=== PATIENT | male | born 1975 | race Caucasian/White ===

== ENCOUNTER 2016-11-23 12:52 | Emergency (ER) | payer MEDICAID ==
--- NOTE | 2016-11-23 13:51 | EDM.PDOC ---
ED HISTORY OF PRESENT ILLNESS - General Chief Complaint: Cardiovascular Problem Stated Complaint: ADMIT FROM CLINIC Time Seen by Provider: 11/23/16 13:32 Source: Reports: Patient, Provider, RN notes reviewed History Limitations: Reports: No limitations - History of Present Illness INITIAL COMMENTS - FREE TEXT/NARRATIVE: A 41-year-old gentleman sent over from the clinic for further evaluation he has a known history of noncompliance diabetes mellitus type 2 as well as history of osteomyelitis status post forefoot removal. He was to establish in clinic today with a new provider he has been complaining of shortness of breath over the last week has had some weight gain as well EKG done in the clinic shows a new left bundle branch block with 3ed degree heart block prior EKGs from August 10 show right bundle branch block. Review of clinic notes show the following 2. Type 2 diabetes mellitus with diabetic polyneuropathy, unspecified prison insulin use status (HCC) 1. Diabetic ulcer of toe (HCC) Patient HbA1c today is10.4. Patient is noncompliant with the medication. Plan is to continue Trulocity and NovoLog 15 units with meals. Recommended him to take the Lantus 10 units during the nighttime. Strongly recommended him to bring home blood sugars chart for the next visit. Patient has been following with ophthalmology for diabetic retinopathy complications. Following with surgery for diabetic foot ulcer. No further complications are noted. Creatinine is within normal limits. We will check microalbumin and vitamin D levels. We'll follow the results and change the management accordingly. RTC in 2 weeks with home blood sugar readings. Patient voices understanding and agreed with the plan. - A1C(Hgb A1C) Today; Future - Urine Microscopic Examination; Future - Vitamin D Total; Future - Microalb,Random - Thyroid Screen with Reflex - Vitamin D Total 3. Anticoagulated on Coumadin 5. Bradycardia 6. S/P AVR Patient underwent a mechanical aortic valve replacement with a 21 mm Vladimir valve in July 2013 in the setting of critical aortic valve stenosis with a bicuspid aortic valve. Patient was recently evaluated by cardiology and recommendations are "Continue Coumadin dose to goal INR between 2 and 3 along with aspirin 81 mg daily Decrease Coreg to 3.125 mg twice a day Continue lisinopril 10 mg daily Continue Lasix 20 mg daily Increase atorvastatin to 80 mg daily sodium restriction to less than 2g daily encouraged with avoidance of canned/pre-processed/convenience foods, deli meats , cheeses Encouraged hydration with 64 oz of water daily. Once he has healed from his toe amputation, it would be reasonable for him to increase his physical activity and consider referral to cardiac rehabilitation Repeat echocardiogram in July 2017 for mechanical wall function follow-up ". Patient states that he is taking Coreg 6.25 mg once daily instead of 3.125 mg twice daily. Recommended him to take 3.125 twice daily to avoid any bradycardia. Patient agreed. 4. Anemia, unspecified type Unknown etiology. We will get iron panel along with ferritin. - Hemogram w/Diff Today; Future - Iron Panel; Future - Ferritin; Future - Hemogram w/Diff Today - Iron Panel - Ferritin 7. Forgetfulness Will refer to neuropsychiatry evaluation for proper diagnosis. Patient agreed with the plan. - Related Data Allergies/ADRs: Allergies Allergy/AdvReac Type Severity Reaction Status Date / Time No Known Allergies Allergy Verified 11/23/16 13:18 Home Meds: Home Meds Carvedilol 6.25 mg PO DAILY 12/08/13 [History] Insulin Aspart [NovoLOG] 15 units SUBCUT TID PRN 12/08/13 [History] Insulin Glarg,Human.Rec.Analog [Lantus Solostar] 30 units SUBCUT QPM 12/08/13 [ History] Warfarin [Coumadin] 5 mg PO DAILY 12/08/13 [History] Hydrocodone/Acetaminophen [Hydrocodon-Acetaminophen 5-325] 1 each PO Q4HR PRN [History] Furosemide [Lasix] 20 mg PO DAILY PRN 08/25/16 [History] Lisinopril 10 mg PO DAILY 08/25/16 [History] atorvaSTATin [Lipitor] 40 mg PO BEDTIME 08/25/16 [History] traMADol [Ultram] 50 mg PO BID PRN 11/23/16 [History] Past Medical History HEENT History: Reports: Epistaxis, Hard of hearing Cardiovascular History: Reports: Heart murmur, High cholesterol, Hypertension Gastrointestinal History: Reports: Other (see below) Other Gastrointestinal History: acid reflux Musculoskeletal History: Reports: Other (see below) Other Musculoskeletal History: knee pain Psychiatric History: Reports: ADD Endocrine/Metabolic History: Reports: Diabetes, type II, IDDM, Obesity/BMI 30+ Dermatologic History: Reports: Other (see below) Other Dermatologic History: right foot ulcer - Infectious Disease History Infectious Disease History: Reports: C-difficile - Past Surgical History HEENT Surgical History: Reports: Cataract surgery Cardiovascular Surgical History: Reports: Valve replacement Other Cardiovascular Surgeries/Procedures: open heart surgery. 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 Social & Family History - Tobacco Use Smoking Status *Q: Former Smoker Years of Tobacco use: 20 Packs/Tins Daily: 0.2 Used Tobacco, but Quit: No Second Hand Smoke Exposure: Yes - Caffeine Use Caffeine Use: Reports: Coffee, Soda - Alcohol Use Days Per Week of Alcohol Use: 0 - Recreational Drug Use Recreational Drug Use: Yes Drug Use in Last 12 Months: Yes Recreational Drug Type: Reports: Marijuana/Hashish Other Recreational Drug Type: Used Marijuana 2 weeks ago Recreational Drug Use Frequency: Rarely - Living Situation & Occupation Living situation: Reports: Occupation: employed ([employer]) ED ROS GENERAL - Review of Systems Review Of Systems: See Below Constitutional: Reports: chills HEENT: Reports: No symptoms Respiratory: Reports: Shortness of Breath Cardiovascular: Reports: Dyspnea on exertion GI/Abdominal: Reports: No symptoms : Reports: no symptoms Musculoskeletal: Reports: no symptoms Skin: Reports: no symptoms Neurological: Reports: No Symptoms ED EXAM, GENERAL - Physical Exam Exam: See Below Free Text/Narrative:: General: Male, not in any distress, alert and oriented x3 HEENT: head is atraumatic normocephalic, eyes pupils equal round reactive to light, sclera clear no conjunctivitis appreciated. Ears tympanic membranes clear and whitehead landmarks and light reflex are present bilaterally canals are clear. Nose no septal deviation, nares are clear, no blood present. Mouth mucosa is moist and pink no erythema or exudate noted in soft palate, tongue is midline uvula is midline, dentition is intact. Neck: Supple no thyromegaly no tracheal deviation. Nodes: Cervical nodes subclavicular nodes nontender no palpable lymphadenopathy noted. Lungs: clear to auscultation bilaterally with symmetrical respirations, no adventitious noise appreciated. CV: Bradycardic rate and rhythm S1 and S2 mechanical click appreciated. Abdomen: Soft, obese, nontender, no palpable masses or organomegaly appreciated , no distention no guarding bowel sounds are present, . Neuro: Cranial nerves II through XII grossly intact Skin: Warm and dry, intact Course - Vital Signs Last Recorded V/S: Last Vital Signs Temp 98.0 F 11/23/16 13:17 Pulse 48 L 11/23/16 13:17 Resp 14 11/23/16 13:17 BP 189/90 H 11/23/16 13:17 Pulse Ox 100 11/23/16 13:17 - Orders/Labs/Meds Orders: Active Orders 24 hr Category Date Time Status Cardiac Monitoring [RC] .As Directed Care 11/23/16 13:41 Active Peripheral IV Care [RC] . DIRECTED Care 11/23/16 14:19 Active Sodium Chloride 0.9% [Saline Flush] Med 11/23/16 14:19 Active 10 ml FLUSH ASDIRECTED PRN Peripheral IV Insertion Adult [OM.PC] Urgent Oth 11/23/16 14:19 Ordered Medication Orders Sodium Chloride (Saline Flush) 10 ml FLUSH ASDIRECTED PRN PRN Reason: Keep Vein Open Labs: Laboratory Tests 11/23/16 11/23/16 11/23/16 Range/Units 13:53 13:53 13:53 PT 17.4 H (9.5-12.0) sec INR 1.62 H (0.80-1.20) Lactic Acid 1.5 (0.4-2.0) mmol/L Troponin I 0.044 (0.000-0.056) ng/mL [id number] Pept 5006 H (5-125) pg/mL Meds: Medications Generic Name Dose Route Start Last Admin Trade Name Freq PRN Reason Stop Dose Admin Sodium Chloride 10 ml 11/23/16 14:19 Saline Flush FLUSH ASDIRECTED PRN Keep Vein Open Departure - Departure Time of Disposition: 15:00 Disposition: DC/Tfer to Acute Hospital 02 Reason for Transfer *Q: Other Condition: fair Clinical Impression: Third degree heart block Forms: ED Department Discharge - My Orders Last 24 Hours: My Active Orders 11/23/16 13:41 Cardiac Monitoring [RC] .As Directed 11/23/16 14:19 Peripheral IV Care [RC] . DIRECTED Sodium Chloride 0.9% [Saline Flush] 10 ml FLUSH ASDIRECTED PRN Peripheral IV Insertion Adult [OM.PC] Urgent - Assessment/Plan Last 24 Hours: My Active Orders 11/23/16 13:41 Cardiac Monitoring [RC] .As Directed 11/23/16 14:19 Peripheral IV Care [RC] . DIRECTED Sodium Chloride 0.9% [Saline Flush] 10 ml FLUSH ASDIRECTED PRN Peripheral IV Insertion Adult [OM.PC] Urgent Plan: Assessment Acuity = acute Site and laterality = third-degree heart block with congestive heart failure and mild pulmonary congestion complicating a patient with known history of diabetes mellitus type 2, aortic valve replacement on chronic anticoagulation as well as history of osteomyelitis right foot Etiology = suspicious for heart failure involvement producing the third-degree block Manifestations = dyspnea on exertion Location of injury = home Lab values = lacticacidemia normal a 1.5 troponin within normal limits at 0.044 BNP 5006 consistent with fluid overload type pattern Plan Called and discussed the case with Dr. Harrington hospitalist construction consultant the [facility], kindly accepted the patient in transfer, will be transported via EMS services ground transcutaneous pacing pads are in place Patient was in agreement with the plan all questions were answered, This note was dictated using [employer] voice recognition software please call with any questions.
[2016-11-23] MEDS ORDERED: Sodium Chloride 0.9% 10 ML Syringe FLUSH PRN (14:19)
[2016-11-23 15:23] VITALS: BP 181/72
== END 2016-11-23 16:04 ==
LOC: JP.ED 12:52
DX: I44.2 Atrioventricular block, complete (principal); I10 Essential (primary) hypertension; E78.00 Pure hypercholesterolemia, unspecified; E11.9 Type 2 diabetes mellitus without complications; E66.9 Obesity, unspecified; Z68.41 Body mass index [BMI] 40.0-44.9, adult; Z79.4 Long term (current) use of insulin; Z79.01 Long term (current) use of anticoagulants; Z98.49 Cataract extraction status, unspecified eye; Z95.2 Presence of prosthetic heart valve; Z98.890 Other specified postprocedural states; Z87.891 Personal history of nicotine dependence
CPT/HCPCS: 36415; 83605; 83880; 84484; 85610; 99285; J7050

== ENCOUNTER 2017-03-20 19:17 | Emergency (ER) | payer MEDICAID ==
[2017-03-20] MEDS ORDERED: Lactated Ringers 1,000 ML IV SCH (19:45)
[2017-03-20] MEDS ORDERED: Piperacillin/Tazobactam 4.5 GM in Sodium Chloride 0.9% 100 ML IV SCH (19:45)
--- NOTE | 2017-03-20 19:47 | EDM.PDOC ---
ED HPI GENERAL MEDICAL PROBLEM - General Chief Complaint: Respiratory Problem Stated Complaint: FEVER,VOMITING Time Seen by Provider: 03/20/17 19:32 Source of Information: Reports: Patient, Family, Old Records, RN Notes Reviewed History Limitations: Reports: No Limitations - History of Present Illness INITIAL COMMENTS - FREE TEXT/NARRATIVE: 41-year-old gentleman presents emergency department day complaint of shortness of breath and not feeling well he is unsure of when this started has progressively gotten worse over the last 24 hours is unaware of any fevers at home states he has been taking his medication when he can remember. Does have a known history of third-degree heart block of which she recently received pacemaker placement earlier this spring he does have a known history of diabetes mellitus type 2 with chronic wounds and history of osteomyelitis as well has had difficulty with wound healing over his pacemaker insertion site, also has a mechanical valve is currently anticoagulated on Coumadin - Related Data Allergies Allergy/AdvReac Type Severity Reaction Status Date / Time metformin Allergy Indigestion Verified 03/20/17 19:29 Home Meds: Home Meds Insulin Glarg,Human.Rec.Analog [Lantus Solostar] 55 units SUBCUT QPM 12/08/13 [ History] Warfarin [Coumadin] 5 mg PO DAILY 12/08/13 [History] Furosemide [Lasix] 40 mg PO BID PRN 08/25/16 [History] Lisinopril 10 mg PO DAILY 08/25/16 [History] atorvaSTATin [Lipitor] 40 mg PO BEDTIME 08/25/16 [History] Aspirin [Adult Low Dose Aspirin EC] 81 mg PO DAILY 03/20/17 [History] Ferrous Sulfate [Iron] 325 mg PO TID 03/20/17 [History] Isosorbide Mononitrate [Isosorbide Mononitrate ER] 60 mg PO DAILY 03/20/17 [ History] Liraglutide [Victoza] 1.8 units SQ DAILY 03/20/17 [History] amLODIPine [Norvasc] 10 mg PO DAILY 03/20/17 [History] hydrALAZINE [Apresoline] 50 mg PO TID 03/20/17 [History] Past Medical History HEENT History: Reports: Epistaxis, Hard of Hearing Cardiovascular History: Reports: Heart Murmur, High Cholesterol, Hypertension Respiratory History: Reports: SOB Gastrointestinal History: Reports: Chronic Constipation Other Gastrointestinal History: acid reflux Musculoskeletal History: Reports: Other (See Below) Other Musculoskeletal History: amputations 5 toes R foot 10/08 wound is open on end and draining fluid Psychiatric History: Reports: ADD Endocrine/Metabolic History: Reports: Diabetes, Type II, IDDM, Obesity/BMI 30+ Hematologic History: Reports: Anemia Dermatologic History: Reports: Other (See Below) Other Dermatologic History: right foot ulcer - Infectious Disease History Infectious Disease History: Reports: C-Difficile - Past Surgical History HEENT Surgical History: Reports: Cataract Surgery Cardiovascular Surgical History: Reports: Pacer, Valve Replacement Musculoskeletal Surgical History: Reports: Other (See Below) Social & Family History - Tobacco Use Smoking Status *Q: Never Smoker Years of Tobacco use: 20 Packs/Tins Daily: 0.2 Used Tobacco, but Quit: No Second Hand Smoke Exposure: Yes - Caffeine Use Caffeine Use: Reports: Soda - Alcohol Use Days Per Week of Alcohol Use: 0 - Recreational Drug Use Recreational Drug Use: No Drug Use in Last 12 Months: Yes Recreational Drug Type: Reports: Marijuana/Hashish Other Recreational Drug Type: Used Marijuana 2 weeks ago Recreational Drug Use Frequency: Rarely - Living Situation & Occupation Living situation: Reports: Occupation: Employed ED ROS GENERAL - Review of Systems Review Of Systems: See Below Constitutional: Reports: Fever, Chills, Weakness HEENT: Reports: No Symptoms Respiratory: Reports: Shortness of Breath. Denies: Wheezing, Cough, Sputum Cardiovascular: Denies: Chest Pain GI/Abdominal: Reports: No Symptoms : Reports: No Symptoms Musculoskeletal: Reports: No Symptoms Skin: Reports: No Symptoms Neurological: Reports: No Symptoms ED EXAM, GENERAL - Physical Exam Exam: See Below Free Text/Narrative:: General: Male, in mild respiratory distress, alert HEENT: head is atraumatic normocephalic, eyes pupils equal round reactive to light, sclera clear no conjunctivitis appreciated. Ears tympanic membranes clear and whitehead landmarks and light reflex are present bilaterally canals are clear. Nose no septal deviation, nares are clear, no blood present. Mouth mucosa is dry and pink no erythema or exudate noted in soft palate, tongue is midline uvula is midline, dentition is intact. Neck: Supple no thyromegaly no tracheal deviation. Nodes: Cervical nodes subclavicular nodes nontender no palpable lymphadenopathy noted. Lungs: Crackles in the bases bilaterally CV: Regular rate and rhythm S1 and S2 appreciated no murmurs rubs or gallops noted. Abdomen: Soft, nontender, no palpable masses or organomegaly appreciated, no distention no guarding bowel sounds are present,. Neuro: Cranial nerves II through XII grossly intact Skin: Warm and dry, intact Extremities: +2 pitting edema bilaterally Course - Vital Signs Last Recorded V/S: Last Vital Signs Temp 102.1 F H 03/20/17 21:00 Pulse 131 H 03/20/17 21:00 Resp 35 H 03/20/17 21:00 BP 147/69 H 03/20/17 21:00 Pulse Ox 95 03/20/17 21:00 - Orders/Labs/Meds Orders: Active Orders 24 hr Category Date Time Status EKG Documentation Completion [RC] ASDIRECTED Care 03/20/17 19:43 Active Vital Signs [RC] Q1H Care 03/20/17 19:40 Active Chest 1V Frontal [CR] Urgent Exams 03/20/17 19:43 Taken CULTURE BLOOD [BC] Urgent Lab 03/20/17 19:50 Received CULTURE BLOOD [BC] Urgent Lab 03/20/17 19:50 Received UA W/MICROSCOPIC [URIN] Urgent Lab 03/20/17 19:40 Uncollected Lactated Ringers [Ringers, Lactated] 1,000 ml Med 03/20/17 19:45 Active IV ASDIRECTED Lactated Ringers [Ringers, Lactated] 1,000 ml Med 03/20/17 21:12 Active IV BOLUS Piperacillin/Tazobactam [Zosyn] 4.5 gm Med 03/20/17 19:45 Active Sodium Chloride 0.9% [Normal Saline] 100 ml IV Q6H Vancomycin 1 gm Med 03/20/17 21:24 Ordered Sodium Chloride 0.9% [Normal Saline] 250 ml IV ONETIME Blood Culture x2 Reflex Set [OM.PC] Urgent Oth 03/20/17 19:40 Ordered EKG 12 Lead [EK] Stat Ther 03/20/17 19:42 Ordered Medication Orders Lactated Ringer's (Ringers, Lactated) 1,000 mls @ 500 mls/hr IV ASDIRECTED ISABELLA Last Admin: 03/20/17 20:02 Dose: 500 mls/hr Piperacillin Sod/Tazobactam (Sod 4.5 gm/ Sodium Chloride) 100 mls @ 200 mls/hr IV Q6H ISABELLA Last Admin: 03/20/17 20:04 Dose: 200 mls/hr Lactated Ringer's (Ringers, Lactated) 1,000 mls @ 999 mls/hr IV BOLUS ONE Stop: 03/20/17 22:12 Labs: Laboratory Tests 03/20/17 03/20/17 03/20/17 Range/Units 19:50 19:50 19:50 WBC 21.9 H (4.5-11.0) K/uL RBC 4.41 (4.30-5.90) M/uL Hgb 9.6 L (12.0-15.0) g/dL Hct 32.3 L (40.0-54.0) % MCV 73 L (80-98) fL MCH 22 L (27-31) pg MCHC 30 L (32-36) % Plt Count 395 (150-400) K/uL Neut % (Auto) 94 H (36-66) % Lymph % (Auto) 3 L (24-44) % [place] % (Auto) 3 (2-6) % Eos % (Auto) 0 L (2-4) % Baso % (Auto) 0 (0-1) % PT (9.5-12.0) sec INR (0.80-1.20) D-Dimer, Quantitative (0.0-400.0) ng/mL Puncture Site ABG pH (7.350-7.450) ABG pCO2 (35.0-42.0) mmHg ABG pO2 (75.0-100.0) mmHg ABG HCO3 (22.0-26.0) mmol/L ABG Total CO2 (23.0-27.0) mmol/L ABG O2 Saturation (95.0-98.0) % ABG O2 Content (15.0-23.0) %vol ABG Base Excess mm/L ABG Hemoglobin (13.5-18.0) g/dL ABG Oxyhemoglobin % ABG Carboxyhemoglobin (0.0-1.6) % ABG Methemoglobin % Richardson Test O2 Delivery Device Sodium 134 L (140-148) mmol/L Potassium 4.3 (3.6-5.2) mmol/L Chloride 101 (100-108) mmol/L Carbon Dioxide 21 (21-32) mmol/L Anion Gap 16.3 H (5.0-14.0) mmol/L BUN 24 H (7-18) mg/dL Creatinine 1.9 H D (0.8-1.3) mg/dL Est Cr Clr Drug Dosing 53.90 mL/min Estimated GFR (MDRD) 40 L (>60) Glucose 333 H (74-106) mg/dL Lactic Acid 5.4 H (0.4-2.0) mmol/L Calcium 8.5 (8.5-10.1) mg/dL Phosphorus (2.5-4.9) mg/dL Magnesium (1.8-2.4) mg/dL Total Bilirubin 1.9 H (0.2-1.0) mg/dL AST 55 H D (15-37) U/L ALT 32 D (12-78) U/L Alkaline Phosphatase 157 H (46-116) U/L Troponin I (0.000-0.056) ng/mL C-Reactive Protein 7.16 H (0.0-0.3) mg/dL Iwi-[id number] Pept (5-125) pg/mL Total Protein 8.0 (6.4-8.2) g/dL Albumin 2.3 L (3.4-5.0) g/dL Globulin 5.7 H (2.3-3.5) g/dL Albumin/Globulin Ratio 0.4 L (1.2-2.2) 03/20/17 03/20/17 03/20/17 Range/Units 19:50 19:50 19:50 WBC (4.5-11.0) K/uL RBC (4.30-5.90) M/uL Hgb (12.0-15.0) g/dL Hct (40.0-54.0) % MCV (80-98) fL MCH (27-31) pg MCHC (32-36) % Plt Count (150-400) K/uL Neut % (Auto) (36-66) % Lymph % (Auto) (24-44) % [place] % (Auto) (2-6) % Eos % (Auto) (2-4) % Baso % (Auto) (0-1) % PT 12.7 H (9.5-12.0) sec INR 1.18 (0.80-1.20) D-Dimer, Quantitative (0.0-400.0) ng/mL Puncture Site ABG pH (7.350-7.450) ABG pCO2 (35.0-42.0) mmHg ABG pO2 (75.0-100.0) mmHg ABG HCO3 (22.0-26.0) mmol/L ABG Total CO2 (23.0-27.0) mmol/L ABG O2 Saturation (95.0-98.0) % ABG O2 Content (15.0-23.0) %vol ABG Base Excess mm/L ABG Hemoglobin (13.5-18.0) g/dL ABG Oxyhemoglobin % ABG Carboxyhemoglobin (0.0-1.6) % ABG Methemoglobin % Richardson Test O2 Delivery Device Sodium (140-148) mmol/L Potassium (3.6-5.2) mmol/L Chloride (100-108) mmol/L Carbon Dioxide (21-32) mmol/L Anion Gap (5.0-14.0) mmol/L BUN (7-18) mg/dL Creatinine (0.8-1.3) mg/dL Est Cr Clr Drug Dosing mL/min Estimated GFR (MDRD) (>60) Glucose (74-106) mg/dL Lactic Acid (0.4-2.0) mmol/L Calcium (8.5-10.1) mg/dL Phosphorus 2.7 (2.5-4.9) mg/dL Magnesium 1.6 L (1.8-2.4) mg/dL Total Bilirubin (0.2-1.0) mg/dL AST (15-37) U/L ALT (12-78) U/L Alkaline Phosphatase (46-116) U/L Troponin I 0.110 H* (0.000-0.056) ng/mL C-Reactive Protein (0.0-0.3) mg/dL [id number] Pept 3941 H (5-125) pg/mL Total Protein (6.4-8.2) g/dL Albumin (3.4-5.0) g/dL Globulin (2.3-3.5) g/dL Albumin/Globulin Ratio (1.2-2.2) 03/20/17 03/20/17 Range/Units 20:46 20:48 WBC (4.5-11.0) K/uL RBC (4.30-5.90) M/uL Hgb (12.0-15.0) g/dL Hct (40.0-54.0) % MCV (80-98) fL MCH (27-31) pg MCHC (32-36) % Plt Count (150-400) K/uL Neut % (Auto) (36-66) % Lymph % (Auto) (24-44) % [place] % (Auto) (2-6) % Eos % (Auto) (2-4) % Baso % (Auto) (0-1) % PT (9.5-12.0) sec INR (0.80-1.20) D-Dimer, Quantitative 2350 H (0.0-400.0) ng/mL Puncture Site Rt radial ABG pH 7.449 (7.350-7.450) ABG pCO2 25.9 L (35.0-42.0) mmHg ABG pO2 55.3 L (75.0-100.0) mmHg ABG HCO3 17.6 L (22.0-26.0) mmol/L ABG Total CO2 16.6 L (23.0-27.0) mmol/L ABG O2 Saturation 87.4 L (95.0-98.0) % ABG O2 Content 10.6 L (15.0-23.0) %vol ABG Base Excess -5.1 mm/L ABG Hemoglobin 8.8 L (13.5-18.0) g/dL ABG Oxyhemoglobin 85.4 % ABG Carboxyhemoglobin 1.8 H (0.0-1.6) % ABG Methemoglobin 0.5 % Richardson Test Passed O2 Delivery Device Room air Sodium (140-148) mmol/L Potassium (3.6-5.2) mmol/L Chloride (100-108) mmol/L Carbon Dioxide (21-32) mmol/L Anion Gap (5.0-14.0) mmol/L BUN (7-18) mg/dL Creatinine (0.8-1.3) mg/dL Est Cr Clr Drug Dosing mL/min Estimated GFR (MDRD) (>60) Glucose (74-106) mg/dL Lactic Acid (0.4-2.0) mmol/L Calcium (8.5-10.1) mg/dL Phosphorus (2.5-4.9) mg/dL Magnesium (1.8-2.4) mg/dL Total Bilirubin (0.2-1.0) mg/dL AST (15-37) U/L ALT (12-78) U/L Alkaline Phosphatase (46-116) U/L Troponin I (0.000-0.056) ng/mL C-Reactive Protein (0.0-0.3) mg/dL [id number]-[id number] Pept (5-125) pg/mL Total Protein (6.4-8.2) g/dL Albumin (3.4-5.0) g/dL Globulin (2.3-3.5) g/dL Albumin/Globulin Ratio (1.2-2.2) Meds: Medications Generic Name Dose Route Start Last Admin Trade Name Freq PRN Reason Stop Dose Admin Lactated Ringer's 1,000 mls @ 500 mls/hr 03/20/17 19:45 03/20/17 20:02 Ringers, Lactated IV 500 mls/hr ASDIRECTED ISABELLA Administration Piperacillin Sod/Tazobactam 100 mls @ 200 mls/hr 03/20/17 19:45 03/20/17 20: 04 Sod 4.5 gm/ Sodium Chloride IV 200 mls/hr Q6H ISABELLA Administration Lactated Ringer's 1,000 mls @ 999 mls/hr 03/20/17 21:12 Ringers, Lactated IV 03/20/17 22:12 BOLUS ONE Discontinued Medications Generic Name Dose Route Start Last Admin Trade Name Freq PRN Reason Stop Dose Admin Acetaminophen 650 mg 03/20/17 20:15 03/20/17 20:23 Tylenol PO 03/20/17 20:16 650 mg NOW ONE Administration Sodium Chloride Confirm 03/20/17 19:48 03/20/17 20:03 Normal Saline Administered 03/20/17 19:49 10 ml Dose Administration 100 mls @ as directed .ROUTE .STK-MED ONE Sodium Chloride Confirm 03/20/17 19:50 03/20/17 20:03 Normal Saline Administered 03/20/17 19:51 Not Given Dose 100 mls @ as directed .ROUTE .STK-MED ONE Vancomycin HCl 1,000 mg/ 250 mls @ 167 mls/hr 03/20/17 21:13 Dextrose/Water IV 03/20/17 22:42 ONETIME ONE Vancomycin HCl Confirm 03/20/17 21:18 Vancomycin Administered 03/20/17 21:19 Dose 1 gm .ROUTE .STK-MED ONE Departure - Departure Time of Disposition: 21:29 Disposition: DC/Tfer to Acute Hospital 02 Condition: Poor Clinical Impression: Sepsis Qualifiers: Sepsis type: sepsis due to unspecified organism Qualified Code(s): A41.9 - Sepsis, unspecified organism - Discharge Information Forms: ED Department Discharge - My Orders Last 24 Hours: My Active Orders 03/20/17 19:40 Vital Signs [RC] Q1H UA W/MICROSCOPIC [URIN] Urgent Blood Culture x2 Reflex Set [OM.PC] Urgent 03/20/17 19:42 EKG 12 Lead [EK] Stat 03/20/17 19:43 EKG Documentation Completion [RC] ASDIRECTED Chest 1V Frontal [CR] Urgent 03/20/17 19:45 Lactated Ringers [Ringers, Lactated] 1,000 ml IV ASDIRECTED Piperacillin/Tazobactam [Zosyn] 4.5 gm Sodium Chloride 0.9% [Normal Saline] 100 ml IV Q6H 03/20/17 19:50 CULTURE BLOOD [BC] Urgent CULTURE BLOOD [BC] Urgent 03/20/17 21:12 Lactated Ringers [Ringers, Lactated] 1,000 ml IV BOLUS 03/20/17 21:24 Vancomycin 1 gm Sodium Chloride 0.9% [Normal Saline] 250 ml IV ONETIME - Assessment/Plan Last 24 Hours: My Active Orders 03/20/17 19:40 Vital Signs [RC] Q1H UA W/MICROSCOPIC [URIN] Urgent Blood Culture x2 Reflex Set [OM.PC] Urgent 03/20/17 19:42 EKG 12 Lead [EK] Stat 03/20/17 19:43 EKG Documentation Completion [RC] ASDIRECTED Chest 1V Frontal [CR] Urgent 03/20/17 19:45 Lactated Ringers [Ringers, Lactated] 1,000 ml IV ASDIRECTED Piperacillin/Tazobactam [Zosyn] 4.5 gm Sodium Chloride 0.9% [Normal Saline] 100 ml IV Q6H 03/20/17 19:50 CULTURE BLOOD [BC] Urgent CULTURE BLOOD [BC] Urgent 03/20/17 21:12 Lactated Ringers [Ringers, Lactated] 1,000 ml IV BOLUS 03/20/17 21:24 Vancomycin 1 gm Sodium Chloride 0.9% [Normal Saline] 250 ml IV ONETIME Plan: Assessment Acuity = acute Site and laterality = sepsis complicated patient with known history of diabetes mellitus type 2, hypertension and dyslipidemia as well as chronic diabetic foot ulcers with history of aortic valve replacement on chronic anticoagulation and recent pacemaker placement secondary to third-degree heart block with nonhealing wound over the pacemaker Etiology = suspicious for foreign body involvement Manifestations = fever, dyspnea, tachypnea Location of injury = Home Lab values = WBC elevated at 21.9 consistent leukocytosis hemoglobin low at 9.6 consistent microchromic anemia INR subtherapeutic at 1.18 ABG 7.45 PCO2 25.9 and PO2 55.3 and a bicarbonate 17.6 consistent with a primary respiratory alkalosis sodium low at 134 consistent hyponatremia creatinine elevated 1.9 consistent chronic renal failure stage G IIIB glucose elevated 333 consistent with hyperglycemia lactic acid elevated at 5.4 consistent lactic acidosis magnesium low at 1.6 consistent hypomagnesemia AST elevated at 55 consists with elevated liver enzymes. Troponin elevated 0.110 of unclear etiology CRP elevated 7.16, BNP elevated at 3941 probably related to chronic fluid overload albumin low at 2.3 consistent hypoalbuminemia EKG demonstrates sinus rhythm however there is ST changes with a 1 mm elevation in V2 and a slightly less than 1 mm elevation in V1 this is different than prior EKGs which demonstrated a right bundle branch block which is no longer present, chest x-ray shows cardiomegaly however I did not appreciate acute process official read radiology is pending Plan Called and discussed the case with Dr. Samayoa [employer] guard business division chair at [facility] who kindly accepted the patient in transfer, he has received 1 L of fluids here of lactated Ringer's he will receive 1 L of lactated Ringer' s in route, vancomycin was initiated here and he did receive 1 dose of Zosyn, he will be transported via EMS ground Patient was in agreement with the plan all questions were answered, they were instructed to return to the emergency department or call for worsening symptoms. This note was dictated using [email or web address] voice recognition software please call with any questions.
[2017-03-20] MEDS ORDERED: Sodium Chloride 0.9% 100 ML ONE ×2 (19:48→19:50)
[2017-03-20] MEDS ORDERED: Acetaminophen 325 MG Tab PO ONE (20:15)
[2017-03-20] MEDS ORDERED: Lactated Ringers 1,000 ML IV ONE (21:12)
[2017-03-20] MEDS ORDERED: Vancomycin 1 GM SDV ONE (21:18)
[2017-03-20 21:35] VITALS: BP 150/82
[2017-03-20] MEDS ORDERED: Lactated Ringers 2,000 ML IV SCH (22:15)
--- NOTE | 2017-03-21 11:37 | CR ---
Mild cardiomegaly. Pacemaker with leads. Hazy density within the right cardiophrenic angle may indic ate developing infiltrate. A degree of pulmonary edema is difficult to exclude but this may be due t o low lung volumes.
== END 2017-03-20 22:16 ==
LOC: JP.ED 19:17
DX: A41.9 Sepsis, unspecified organism (principal); I10 Essential (primary) hypertension; E78.00 Pure hypercholesterolemia, unspecified; E11.621 Type 2 diabetes mellitus with foot ulcer; L97.519 Non-pressure chronic ulcer of other part of right foot with unspecified severity; E66.9 Obesity, unspecified; Z68.42 Body mass index [BMI] 45.0-49.9, adult; Z98.49 Cataract extraction status, unspecified eye; Z95.0 Presence of cardiac pacemaker; Z95.2 Presence of prosthetic heart valve; Z79.82 Long term (current) use of aspirin; Z79.01 Long term (current) use of anticoagulants; Z79.899 Other long term (current) drug therapy; Z88.8 Allergy status to other drugs, medicaments and biological substances
CPT/HCPCS: 36415; 36600; 71010; 80053; 82803; 83605; 83735; 83880; 84100; 84484; 85025; 85379; 85610; 86140; 87040; 93005; 96365; 96367; 99285; A9270; J2543; J3370; J7030; J7050; J7120

== ENCOUNTER 2017-05-14 06:24 | Emergency (ER) | payer MEDICAID ==
--- NOTE | 2017-05-14 07:18 | EDM.PDOC ---
ED HPI GENERAL MEDICAL PROBLEM - General Chief Complaint: Abdominal Pain Stated Complaint: ABDOMINAL PAIN Time Seen by Provider: 05/14/17 07:12 Source of Information: Reports: Patient History Limitations: Reports: No Limitations - History of Present Illness INITIAL COMMENTS - FREE TEXT/NARRATIVE: pt arroves with lower abdomanal pain out on both sides. He has had normal bms. He has not been vomiting but he has been nauseated. Onset: Gradual, Other (pt has had pain off and on for 3 weeks. ) Duration: Day(s): Location: Reports: Abdomen, Other ( both sides on the outside. ) Associated Symptoms: Reports: Other (Pt has had a low grade temp. ) lower abdomin Pain Score (Numeric/FACES): 10 - Related Data Allergies Allergy/AdvReac Type Severity Reaction Status Date / Time metformin Allergy Indigestion Verified 05/14/17 06:42 Home Meds: Home Meds Insulin Glarg,Human.Rec.Analog [Lantus Solostar] 40 units SUBCUT QPM 12/08/13 [ History] Warfarin [Coumadin] 7.5 mg PO DAILY 12/08/13 [History] Furosemide [Lasix] 60 mg PO BID 08/25/16 [History] atorvaSTATin [Lipitor] 40 mg PO BEDTIME 08/25/16 [History] Aspirin [Adult Low Dose Aspirin EC] 81 mg PO DAILY 03/20/17 [History] Ferrous Sulfate [Iron] 325 mg PO TID 03/20/17 [History] Isosorbide Mononitrate [Isosorbide Mononitrate ER] 60 mg PO DAILY 03/20/17 [ History] Liraglutide [Victoza] 1.8 units SQ DAILY 03/20/17 [History] Calcium Acetate [PhosLo] 667 mg PO TID 05/14/17 [History] Calcium Carbonate [Tums] 1,000 mg PO TID 05/14/17 [History] Epoetin Alvin [Epogen] 0.25 ml SUBCUT ASDIRECTED 05/14/17 [History] Ergocalciferol (Vitamin D2) [Vitamin D2] 50,000 unit PO WEEKLY 05/14/17 [History ] Gabapentin [Neurontin] 300 mg PO BEDTIME 05/14/17 [History] Insulin Detemir [Levemir] 35 unit SUBCUT BEDTIME 05/14/17 [History] Insulin Glargine,Hum.Rec.Anlog [[place]] 40 unit SQ BEDTIME 05/14/17 [ History] Magnesium Oxide 400 mg PO BID 05/14/17 [History] Metoprolol Tartrate 25 mg PO BID 05/14/17 [History] Nystatin 1 each TOP TID 05/14/17 [History] Past Medical History - Past Health History Medical/Surgical History: Denies Medical/Surgical History HEENT History: Reports: Epistaxis, Hard of Hearing Cardiovascular History: Reports: Heart Murmur, High Cholesterol, Hypertension Respiratory History: Reports: SOB Gastrointestinal History: Reports: Chronic Constipation, Other (See Below) Other Gastrointestinal History: acid reflux Genitourinary History: Reports: Chronic Renal Insuffiency, Other (See Below) Other Genitourinary History: dialysis Musculoskeletal History: Reports: Other (See Below) Other Musculoskeletal History: amputations 5 toes R foot 10/08 wound is open on end and draining fluid. infected bone shaved off of right, wound vac placed Neurological History: Reports: None Psychiatric History: Reports: ADD Endocrine/Metabolic History: Reports: Diabetes, Type II, IDDM, Obesity/BMI 30+ Hematologic History: Reports: Anemia Immunologic History: Reports: Other (See Below) Other Immunologic History: MRSA hx pacer site and chest incision Oncologic (Cancer) History: Reports: None Dermatologic History: Reports: Other (See Below) Other Dermatologic History: right foot ulcer - Infectious Disease History Infectious Disease History: Reports: Chicken Pox - Past Surgical History Head Surgeries/Procedures: Reports: None HEENT Surgical History: Reports: Cataract Surgery Cardiovascular Surgical History: Reports: Pacer, Valve Replacement GI Surgical History: Reports: None Male Surgical History: Reports: None Neurological Surgical History: Reports: None Musculoskeletal Surgical History: Reports: None, Other (See Below) Oncologic Surgical History: Reports: None Social & Family History - Tobacco Use Smoking Status *Q: Never Smoker Years of Tobacco use: 20 Packs/Tins Daily: 0.2 Used Tobacco, but Quit: No Second Hand Smoke Exposure: Yes - Caffeine Use Caffeine Use: Reports: Soda, Tea - Alcohol Use Days Per Week of Alcohol Use: 0 - Recreational Drug Use Recreational Drug Use: Yes Drug Use in Last 12 Months: Yes Recreational Drug Type: Reports: Marijuana/Hashish Other Recreational Drug Type: Used Marijuana 2 weeks ago Recreational Drug Use Frequency: Rarely - Living Situation & Occupation Living situation: Reports: Occupation: Employed ED ROS GENERAL - Review of Systems Review Of Systems: See Below Constitutional: Reports: Other (low grade temp at 99. ) HEENT: Reports: No Symptoms Respiratory: Reports: No Symptoms Cardiovascular: Reports: No Symptoms Endocrine: Reports: No Symptoms GI/Abdominal: Reports: Abdominal Pain, Other (Pt has pain on both sides of the abdoman. ) : Reports: Other (pt is on fluid restriction of 100 cc so he does not void often. He is on dialysis at this point and this may not be permanent. ) Musculoskeletal: Reports: No Symptoms Skin: Reports: No Symptoms Neurological: Reports: No Symptoms Psychiatric: Reports: Anxiety ED EXAM, GI/ABD - Physical Exam Exam: See Below Text/Narrative:: pt arrived with abdomanal pain on both sides of the abdoman and the abdoman is firm. on both sides. He hasnot been vomiting and the bms have been normal. Earlier he was having some constipation from the narcotics so he has not been taking much for pain. The abdomnal pain started about 3 weeks ago. Exam Limited By: No Limitations General Appearance: Alert, Moderate Distress Eyes: Bilateral: Normal Appearance, EOMI Ears: Normal TMs Nose: Normal Inspection Throat/Mouth: Normal Inspection Head: Atraumatic Neck: Normal Inspection Respiratory/Chest: No Respiratory Distress Cardiovascular: Regular Rate, Rhythm GI/Abdominal Exam: Other (Pt is tender on both sides of his abdoman. The sides of the abdoman are very firm to palpate. ) (Male) Exam: Deferred Back Exam: Normal Inspection Extremities: Other (pt has a wound vac in and has a wound which is being followed by Dr Johnson. ) Neurological: Alert, Oriented, Normal Cognition Psychiatric: Depressed Mood Course - Vital Signs Last Recorded V/S: Last Vital Signs Temp 36.3 C 05/14/17 11:50 Pulse 102 H 05/14/17 11:50 Resp 12 05/14/17 11:50 BP 135/77 05/14/17 11:50 Pulse Ox 98 05/14/17 11:50 - Orders/Labs/Meds Orders: Active Orders 24 hr Category Date Time Status Abdomen Pelvis wo Cont [CT] Stat Exams 05/14/17 07:20 Taken Sodium Chloride 0.9% [Normal Saline] 1,000 ml Med 05/14/17 09:00 Active IV ASDIRECTED Transfuse Red Blood Cells [COMM] Routine Oth 05/14/17 09:01 Ordered Medication Orders Sodium Chloride (Normal Saline) 1,000 mls @ 150 mls/hr IV ASDIRECTED ISABELLA Last Admin: 05/14/17 09:06 Dose: 150 mls/hr Labs: Laboratory Tests 05/14/17 05/14/17 05/14/17 Range/Units 07:23 07:23 07:23 WBC 7.5 (4.5-11.0) K/uL RBC 2.78 L (4.30-5.90) M/uL Hgb 6.7 L* D (12.0-15.0) g/dL Hct 22.2 L (40.0-54.0) % MCV 80 (80-98) fL MCH 24 L (27-31) pg MCHC 30 L (32-36) % Plt Count 436 H (150-400) K/uL Neut % (Auto) 76 H (36-66) % Lymph % (Auto) 12 L (24-44) % Smith % (Auto) 10 H (2-6) % Eos % (Auto) 1 L (2-4) % Baso % (Auto) 1 (0-1) % Sodium 136 L (140-148) mmol/L Potassium 3.7 (3.6-5.2) mmol/L Chloride 99 L (100-108) mmol/L Carbon Dioxide 27 (21-32) mmol/L Anion Gap 13.7 (5.0-14.0) mmol/L BUN 41 H (7-18) mg/dL Creatinine 2.2 H D (0.8-1.3) mg/dL Est Cr Clr Drug Dosing 46.09 mL/min Estimated GFR (MDRD) 33 L (>60) Glucose 231 H (74-106) mg/dL Calcium 8.7 (8.5-10.1) mg/dL Total Bilirubin 1.3 H (0.2-1.0) mg/dL AST 23 (15-37) U/L ALT 34 (12-78) U/L Alkaline Phosphatase 200 H (46-116) U/L C-Reactive Protein 6.67 H (0.0-0.3) mg/dL Total Protein 8.1 (6.4-8.2) g/dL Albumin 2.7 L (3.4-5.0) g/dL Globulin 5.4 H (2.3-3.5) g/dL Albumin/Globulin Ratio 0.5 L (1.2-2.2) Urine Color Urine Appearance Urine pH (4.5-8.0) Ur Specific [place] (1.008-1.030) Urine Protein (NEGATIVE) mg/dL Urine Glucose (UA) (NEGATIVE) mg/dL Urine Ketones (NEGATIVE) mg/dL Urine Occult Blood (NEGATIVE) Urine Nitrite (NEGAITVE) Urine Bilirubin (NEGATIVE) Urine Urobilinogen (NORMAL) mg/dL Ur Leukocyte Esterase (NEGATIVE) Urine RBC (0-5) Urine WBC (0-5) Ur Epithelial Cells Amorphous Sediment Urine Bacteria Urine Mucus Blood Type Gel Antibody Screen Crossmatch 05/14/17 05/14/17 Range/Units 07:45 11:07 WBC (4.5-11.0) K/uL RBC (4.30-5.90) M/uL Hgb (12.0-15.0) g/dL Hct (40.0-54.0) % MCV (80-98) fL MCH (27-31) pg MCHC (32-36) % Plt Count (150-400) K/uL Neut % (Auto) (36-66) % Lymph % (Auto) (24-44) % Smith % (Auto) (2-6) % Eos % (Auto) (2-4) % Baso % (Auto) (0-1) % Sodium (140-148) mmol/L Potassium (3.6-5.2) mmol/L Chloride (100-108) mmol/L Carbon Dioxide (21-32) mmol/L Anion Gap (5.0-14.0) mmol/L BUN (7-18) mg/dL Creatinine (0.8-1.3) mg/dL Est Cr Clr Drug Dosing mL/min Estimated GFR (MDRD) (>60) Glucose (74-106) mg/dL Calcium (8.5-10.1) mg/dL Total Bilirubin (0.2-1.0) mg/dL AST (15-37) U/L ALT (12-78) U/L Alkaline Phosphatase (46-116) U/L C-Reactive Protein (0.0-0.3) mg/dL Total Protein (6.4-8.2) g/dL Albumin (3.4-5.0) g/dL Globulin (2.3-3.5) g/dL Albumin/Globulin Ratio (1.2-2.2) Urine Color [place] Urine Appearance Clear Urine pH 5.0 (4.5-8.0) Ur Specific [place] 1.020 (1.008-1.030) Urine Protein 30 H (NEGATIVE) mg/dL Urine Glucose (UA) Normal (NEGATIVE) mg/dL Urine Ketones Negative (NEGATIVE) mg/dL Urine Occult Blood Moderate (NEGATIVE) Urine Nitrite Negative (NEGAITVE) Urine Bilirubin Negative (NEGATIVE) Urine Urobilinogen Normal (NORMAL) mg/dL Ur Leukocyte Esterase Negative (NEGATIVE) Urine RBC 0-5 (0-5) Urine WBC 0-5 (0-5) Ur Epithelial Cells Not seen Amorphous Sediment Not seen Urine Bacteria Not seen Urine Mucus Not seen Blood Type A POSITIVE Gel Antibody Screen Negative Crossmatch See Detail Meds: Medications Generic Name Dose Route Start Last Admin Trade Name Freq PRN Reason Stop Dose Admin Sodium Chloride 1,000 mls @ 150 mls/hr 05/14/17 09:00 05/14/17 09:06 Normal Saline IV 150 mls/hr ASDIRECTED ISABELLA Administration Discontinued Medications Generic Name Dose Route Start Last Admin Trade Name Freq PRN Reason Stop Dose Admin Hydrocodone Bitart/Acetaminophen 1 tab 05/14/17 09:30 05/14/17 10:42 [place] 325-5 Mg PO 05/14/17 09:31 1 tab ONETIME ONE Administration Furosemide 60 mg 05/14/17 10:34 05/14/17 10:42 Lasix PO 05/14/17 10:35 60 mg ONETIME ONE Administration Hydromorphone HCl 0.5 mg 05/14/17 07:47 05/14/17 07:53 Dilaudid IM 05/14/17 07:48 0.5 mg ONETIME ONE Administration - Re-Assessments/Exams Free Text/Narrative Re-Assessment/Exam: 05/14/17 11:18 urine is clear, wbc is normal His creatnine was 2.2 Pt was given a unit of blood while in er because his hg was 6.7. His cat scan of the abdoman was neg for acute findings except he has alot of enlarged lymph nodes which may be from the previous sepsis. He has no other acute findings. 05/14/17 11:22 05/14/17 11:59 Departure - Departure Time of Disposition: 12:01 Disposition: Home, Self-Care 01 Condition: Fair Clinical Impression: Anemia, Abdominal pain - Discharge Information Referrals: Calderon Ng PA-C [Primary Care Provider] - Forms: ED Department Discharge Care Plan Goals: appt with Calderon Ng in 1 week, norco 5/325 q6h prn for pain #8. watch stools to avoid constiption miralax daily , prumes, high fiber foods. follow up cat scan in 6 weeks regarding the lymph nodes. - My Orders Last 24 Hours: My Active Orders 05/14/17 07:20 Abdomen Pelvis wo Cont [CT] Stat 05/14/17 09:00 Sodium Chloride 0.9% [Normal Saline] 1,000 ml IV ASDIRECTED 05/14/17 09:01 Transfuse Red Blood Cells [COMM] Routine - Assessment/Plan Last 24 Hours: My Active Orders 05/14/17 07:20 Abdomen Pelvis wo Cont [CT] Stat 05/14/17 09:00 Sodium Chloride 0.9% [Normal Saline] 1,000 ml IV ASDIRECTED 05/14/17 09:01 Transfuse Red Blood Cells [COMM] Routine
[2017-05-14] MEDS ORDERED: HYDROmorphone 0.5 MG/0.5 ML Syringe IM ONE (07:47)
[2017-05-14] MEDS ORDERED: Sodium Chloride 0.9% 1,000 ML IV SCH (09:00)
[2017-05-14] MEDS ORDERED: Acetaminophen/HYDROcodone 325-5 MG Tab PO ONE (09:30)
[2017-05-14] MEDS ORDERED: Furosemide 40 MG Tab PO ONE (10:34)
[2017-05-14 11:51] VITALS: BP 135/77
== END 2017-05-14 12:33 | disposition home or self-care (01) ==
LOC: JP.ED 06:24
DX: R10.30 Lower abdominal pain, unspecified (principal); D64.9 Anemia, unspecified; E11.22 Type 2 diabetes mellitus with diabetic chronic kidney disease; I12.9 Hypertensive chronic kidney disease with stage 1 through stage 4 chronic kidney disease, or unspecified chronic kidney disease; N18.9 Chronic kidney disease, unspecified; Z88.8 Allergy status to other drugs, medicaments and biological substances; Z79.01 Long term (current) use of anticoagulants; Z79.4 Long term (current) use of insulin; Z79.82 Long term (current) use of aspirin; Z79.899 Other long term (current) drug therapy
CPT/HCPCS: 36415; 36430; 74176; 80053; 81001; 85025; 86140; 86850; 86900; 86901; 86920; 86922; 96372; 99284; A9270; J1170; J1642; J7040; P9016

== ENCOUNTER 2017-06-22 02:16 | Emergency (ER) | payer MEDICAID ==
[2017-06-22] MEDS: Sodium Chloride 0.9% 1,000 ML IV SCH ×2 (03:31→05:32)
[2017-06-22] MEDS ORDERED: Sodium Chloride 0.9% 250 ML ONE (03:59)
[2017-06-22] MEDS ORDERED: Vancomycin 1 GM SDV IV SCH (04:00)
[2017-06-22] MEDS: Acetaminophen Soln 650 MG/20.3 ML UD Cup PO ONE ×2 (04:15→04:41)
[2017-06-22] MEDS ORDERED: LORazepam 2 MG/ML MDV IVPUSH ONE (04:17)
--- NOTE | 2017-06-22 04:45 | EDM.PDOC ---
ED HPI GENERAL MEDICAL PROBLEM - General Chief Complaint: Gastrointestinal Problem Stated Complaint: PORT CAME OUT Time Seen by Provider: 06/22/17 03:51 Source of Information: Reports: Patient, Significant Other (Heidi) History Limitations: Reports: No Limitations - History of Present Illness INITIAL COMMENTS - FREE TEXT/NARRATIVE: Fever, not feeling well since afternoon of 06-21-2017. This is medical complex 42 year old male, who reports not feeling since yesterday afternoon. This began as nausea, vomiting, felt feverish, general not feeling well. Reports had a dialysis port to left upper chest which fell out during the evening. He reports had appointment last week at 06/16/17 [facility] with Infectious Disease, 06/17/17 Surgical Procedure skin graft placed on right mid foot at amputation site. Past History of: -06-17-2017 Skin Graft, right foot at [place], [place]. -06-16-2017 last Dialysis at [place], [place]. Patient reports told he didn't need it anymore -03/2017; Osteomylitis; hospitalized 6 weeks at [facility] -10/05/16; partial right foot amputation at [facility] -09/2016 Sarbjit Cath; left upper chest Pacemaker; right upper chest 2012 Aortic Valve replacement, current coumadin therapy 20 years Diabetes type 2, Insulin therapy Onset: Sudden Onset Date: 06/21/17 Onset Time: 12:30 Duration: Getting Worse Quality: Reports: Other (increased foot pain) Improves with: Reports: None Worsens with: Reports: None Associated Symptoms: Reports: Fever/Chills, Loss of Appetite, Malaise, Nausea/ Vomiting, Weakness DENIES Pain Score (Numeric/FACES): 5 - Related Data Allergies Allergy/AdvReac Type Severity Reaction Status Date / Time metformin Allergy Indigestion Verified 06/22/17 02:52 Home Meds: Home Meds Warfarin [Coumadin] 7.5 mg PO DAILY 12/08/13 [History] Furosemide [Lasix] 60 mg PO BID 08/25/16 [History] atorvaSTATin [Lipitor] 40 mg PO BEDTIME 08/25/16 [History] Ferrous Sulfate [Iron] 325 mg PO TID 03/20/17 [History] Isosorbide Mononitrate [Isosorbide Mononitrate ER] 60 mg PO DAILY 03/20/17 [ History] Liraglutide [Victoza] 1.8 units SQ DAILY 03/20/17 [History] Gabapentin [Neurontin] 300 mg PO BEDTIME 05/14/17 [History] Insulin Glargine,Hum.Rec.Anlog [Libanumague Solostar] 40 unit SQ BEDTIME 05/14/17 [ History] Metoprolol Tartrate 25 mg PO BID 05/14/17 [History] Nystatin 1 each TOP TID 05/14/17 [History] Past Medical History - Past Health History Medical/Surgical History: Denies Medical/Surgical History HEENT History: Reports: Epistaxis, Hard of Hearing Cardiovascular History: Reports: Heart Murmur, High Cholesterol, Hypertension Respiratory History: Reports: SOB Gastrointestinal History: Reports: Chronic Constipation, Other (See Below) Other Gastrointestinal History: acid reflux Genitourinary History: Reports: Chronic Renal Insuffiency, Other (See Below) Other Genitourinary History: dialysis [facility] no longer using dialysis since. Musculoskeletal History: Reports: Other (See Below) Other Musculoskeletal History: amputations 5 toes R foot 10/08 wound is open on end and draining fluid. infected bone shaved off of right, wound vac placed Wound vac now d/c. Skin grafts 06/17/17 on toes. Neurological History: Reports: None Psychiatric History: Reports: ADD Endocrine/Metabolic History: Reports: Diabetes, Type II, IDDM, Obesity/BMI 30+ Hematologic History: Reports: Anemia Immunologic History: Reports: Other (See Below) Other Immunologic History: MRSA hx pacer site and chest incision Oncologic (Cancer) History: Reports: None Dermatologic History: Reports: Other (See Below) Other Dermatologic History: right foot ulcer - Infectious Disease History Infectious Disease History: Reports: Chicken Pox - Past Surgical History Head Surgeries/Procedures: Reports: None HEENT Surgical History: Reports: Cataract Surgery Cardiovascular Surgical History: Reports: Pacer, Valve Replacement GI Surgical History: Reports: None Male Surgical History: Reports: None Neurological Surgical History: Reports: None Musculoskeletal Surgical History: Reports: None, Other (See Below) Oncologic Surgical History: Reports: None Social & Family History - Tobacco Use Smoking Status *Q: Current Some Day Smoker Years of Tobacco use: 25 Packs/Tins Daily: 0.2 Used Tobacco, but Quit: No Second Hand Smoke Exposure: No - Caffeine Use Caffeine Use: Reports: Coffee, Soda, Tea - Alcohol Use Days Per Week of Alcohol Use: 0 - Recreational Drug Use Recreational Drug Use: Yes Drug Use in Last 12 Months: Yes Recreational Drug Type: Reports: Marijuana/Hashish Other Recreational Drug Type: Used Marijuana 2 weeks ago Recreational Drug Use Frequency: Rarely - Living Situation & Occupation Living situation: Reports: with Significant Other (lives with SO Heidi of five years in [place], [place].) Occupation: Employed ED ROS GENERAL - Review of Systems Review Of Systems: See Below Constitutional: Reports: Fever, Chills, Malaise, Weakness, Fatigue, Decreased Appetite HEENT: Reports: No Symptoms Respiratory: Reports: No Symptoms Cardiovascular: Reports: No Symptoms Endocrine: Reports: High Glucose, Other (diabetes type 2 x 20 years) GI/Abdominal: Reports: Nausea : Reports: No Symptoms Musculoskeletal: Reports: Foot Pain (right mid foot amputation with skin graft on 06/18/17), Muscle Pain (right foot) Skin: Reports: Wound (left upper chest open wound from dialysis access port, "fell out last evening".), Other (right mid foot with very strong odor of non- viable tissue. stump with bogginess, no active drainage. painful. skin has pallor. ) Neurological: Reports: Weakness Psychiatric: Reports: Agitation (reports doesn't want to be hospitalized again. anxiety due to worsen health condition.) Hematologic/Lymphatic: Reports: Other (coumadin therapy, Dialysis stopped on ) ED EXAM, GENERAL - Physical Exam Exam: See Below Exam Limited By: No Limitations General Appearance: Alert, Anxious, Obese, Other (pallor, agitated during exam, "doesn't want to be in hospital or impending transfer") Eye Exam: Bilateral Eye: Normal Inspection Ears: Normal External Exam, Normal Canal, Hearing Grossly Normal, Normal TMs Nose: Normal Inspection, Normal Mucosa, No Blood Throat/Mouth: Normal Inspection, Normal Lips, Normal Teeth, Normal Gums, Normal Oropharynx, Normal Voice, No Airway Compromise Head: Atraumatic, Normocephalic Neck: Normal Inspection, Supple, Non-Tender, Full Range of Motion Respiratory/Chest: No Respiratory Distress, Lungs Clear, Normal Breath Sounds, No Accessory Muscle Use, Chest Non-Tender Cardiovascular: No Edema, No Murmur, Tachycardia (rate 140) GI/Abdominal: Normal Bowel Sounds, Soft, Non-Tender, No Organomegaly, No Distention, No Abnormal Bruit, No Mass, Pelvis Stable (Male) Exam: Deferred Rectal (Males) Exam: Deferred Extremities: No Pedal Edema, Leg Pain, Pallor (right foot with strong foul odor) , Other (right foot with mid foot amputation. left foot without any surgical intervent. skin dry, no ulcers present.) Neurological: Alert, Oriented, Normal Cognition Psychiatric: Anxious Skin Exam: Warm, Dry, Wound/Incision (left upper chest; puncture type wound from at home removal of sarbjit-cath dialysis, pink no active discharge. right mid -foot with recent skin grafting foul odor present, pain, no active discharge.) Lymphatic: No Adenopathy Course - Vital Signs Last Recorded V/S: Last Vital Signs Temp 40.4 C H 06/22/17 02:51 Pulse 78 06/22/17 02:51 Resp 20 06/22/17 02:51 BP 142/64 H 06/22/17 02:51 Pulse Ox 93 L 06/22/17 02:51 - Orders/Labs/Meds Orders: Active Orders 24 hr Category Date Time Status Cardiac Monitoring [RC] .As Directed Care 06/22/17 03:49 Active Vital Signs [RC] Q1H Care 06/22/17 03:54 Active Chest 1V Frontal [CR] Urgent Exams 06/22/17 03:48 Ordered CULTURE BLOOD [BC] Urgent Lab 06/22/17 03:15 Received CULTURE BLOOD [BC] Urgent Lab 06/22/17 03:20 Received UA W/MICROSCOPIC [URIN] Urgent Lab 06/22/17 02:55 Uncollected Sodium Chloride 0.9% [Normal Saline] 1,000 ml Med 06/22/17 03:00 Active IV ASDIRECTED Vancomycin 1 gm Med 06/22/17 04:02 Active Sodium Chloride 0.9% [Normal Saline] 250 ml IV ONETIME Blood Culture x2 Reflex Set [OM.PC] Urgent Oth 06/22/17 02:56 Ordered Medication Orders Sodium Chloride (Normal Saline) 1,000 mls @ 999 mls/hr IV ASDIRECTED ISABELLA Last Admin: 06/22/17 03:31 Dose: 999 mls/hr Vancomycin HCl 1 gm/ Sodium (Chloride) 250 mls @ 150 mls/hr IV ONETIME ONE Stop: 06/22/17 05:41 Last Admin: 06/22/17 04:13 Dose: 150 mls/hr Labs: Laboratory Tests 06/22/17 06/22/17 06/22/17 Range/Units 03:20 03:20 03:20 WBC 17.1 H (4.5-11.0) K/uL RBC 4.31 (4.30-5.90) M/uL Hgb 11.0 L D (12.0-15.0) g/dL Hct 36.0 L (40.0-54.0) % MCV 84 (80-98) fL MCH 26 L (27-31) pg MCHC 31 L (32-36) % Plt Count 257 (150-400) K/uL Neut % (Auto) 95 H (36-66) % Lymph % (Auto) 2 L (24-44) % [place] % (Auto) 4 (2-6) % Eos % (Auto) 0 L (2-4) % Baso % (Auto) 0 (0-1) % PT (9.5-12.0) sec INR (0.80-1.20) Sodium 135 L (140-148) mmol/L Potassium 4.7 (3.6-5.2) mmol/L Chloride 100 (100-108) mmol/L Carbon Dioxide 24 (21-32) mmol/L Anion Gap 15.7 H (5.0-14.0) mmol/L BUN 25 H (7-18) mg/dL Creatinine 2.2 H (0.8-1.3) mg/dL Est Cr Clr Drug Dosing 43.18 mL/min Estimated GFR (MDRD) 33 L (>60) Glucose 274 H (74-106) mg/dL Lactic Acid 3.1 H (0.4-2.0) mmol/L Calcium 9.5 (8.5-10.1) mg/dL Total Bilirubin 2.8 H D (0.2-1.0) mg/dL AST 21 (15-37) U/L ALT 18 (12-78) U/L Alkaline Phosphatase 100 (46-116) U/L C-Reactive Protein (0.0-0.3) mg/dL Total Protein 7.9 (6.4-8.2) g/dL Albumin 3.1 L (3.4-5.0) g/dL Globulin 4.8 H (2.3-3.5) g/dL Albumin/Globulin Ratio 0.7 L (1.2-2.2) Amylase (25-115) U/L Lipase (73-393) U/L 06/22/17 06/22/17 06/22/17 Range/Units 03:20 03:20 03:48 WBC (4.5-11.0) K/uL RBC (4.30-5.90) M/uL Hgb (12.0-15.0) g/dL Hct (40.0-54.0) % MCV (80-98) fL MCH (27-31) pg MCHC (32-36) % Plt Count (150-400) K/uL Neut % (Auto) (36-66) % Lymph % (Auto) (24-44) % [place] % (Auto) (2-6) % Eos % (Auto) (2-4) % Baso % (Auto) (0-1) % PT 12.0 (9.5-12.0) sec INR 1.12 D (0.80-1.20) Sodium (140-148) mmol/L Potassium (3.6-5.2) mmol/L Chloride (100-108) mmol/L Carbon Dioxide (21-32) mmol/L Anion Gap (5.0-14.0) mmol/L BUN (7-18) mg/dL Creatinine (0.8-1.3) mg/dL Est Cr Clr Drug Dosing mL/min Estimated GFR (MDRD) (>60) Glucose (74-106) mg/dL Lactic Acid (0.4-2.0) mmol/L Calcium (8.5-10.1) mg/dL Total Bilirubin (0.2-1.0) mg/dL AST (15-37) U/L ALT (12-78) U/L Alkaline Phosphatase (46-116) U/L C-Reactive Protein 5.05 H (0.0-0.3) mg/dL Total Protein (6.4-8.2) g/dL Albumin (3.4-5.0) g/dL Globulin (2.3-3.5) g/dL Albumin/Globulin Ratio (1.2-2.2) Amylase 37 D (25-115) U/L Lipase 297 (73-393) U/L Meds: Medications Generic Name Dose Route Start Last Admin Trade Name Freq PRN Reason Stop Dose Admin Sodium Chloride 1,000 mls @ 999 mls/hr 06/22/17 03:00 06/22/17 03:31 Normal Saline IV 999 mls/hr ASDIRECTED ISABELLA Administration Vancomycin HCl 1 gm/ Sodium 250 mls @ 150 mls/hr 06/22/17 04:02 06/22/17 04: 13 Chloride IV 06/22/17 05:41 150 mls/hr ONETIME ONE Administration Discontinued Medications Generic Name Dose Route Start Last Admin Trade Name Freq PRN Reason Stop Dose Admin Acetaminophen 650 mg 06/22/17 03:47 Tylenol PO 06/22/17 03:48 ONETIME ONE Sodium Chloride Confirm 06/22/17 03:59 Normal Saline Administered 06/22/17 04:00 Dose 250 mls @ as directed .ROUTE .STK-MED ONE Lorazepam 1 mg 06/22/17 04:17 Ativan IVPUSH 06/22/17 04:18 ONETIME ONE - Re-Assessments/Exams Free Text/Narrative Re-Assessment/Exam: 06/22/17 sepsis ; given Normal Saline one liter, IV Vancomycin 1 gram, PO Tylenol 650mg pain and anxiety; IV Dilaudid 1 mg , IV Ativan 1 mg. labs; CBC, CMP, LACTIC ACID, CRP, AMYLASE, LIPASE, BLOOD CULTURES X 2, URINE PENDING 06/22/17 04:22 Contact [facility]; will accept Mr. Law for further care and treatment. Dr. Bunn, [facility], accepting will transport via EMS. Mr. Law agrees with plan of care. Departure - Departure Time of Disposition: 05:08 Disposition: DC/Tfer to Acute Hospital 02 Condition: Poor, Critical Clinical Impression: Sepsis, History of osteomyelitis, Diabetes mellitus type 2 with complications, uncontrolled - Discharge Information Referrals: Calderon Ng PA-C [Primary Care Provider] - - Problem List & Annotations (1) Diabetes mellitus type 2 with complications, uncontrolled SNOMED Code(s): 215096236 Code(s): E11.8 - TYPE 2 DIABETES MELLITUS WITH UNSPECIFIED COMPLICATIONS; E11.65 - TYPE 2 DIABETES MELLITUS WITH HYPERGLYCEMIA Status: Acute Priority : High Current Visit: Yes Qualifiers: Diabetes mellitus termite treater helper insulin use: with termite treater helper use Qualified Code( s): E11.8 - Type 2 diabetes mellitus with unspecified complications; E11.65 - Type 2 diabetes mellitus with hyperglycemia; E11.65 - Type 2 diabetes mellitus with hyperglycemia; E11.65 - Type 2 diabetes mellitus with hyperglycemia; E11.65 - Type 2 diabetes mellitus with hyperglycemia; Z79.4 - termite inspector (current ) use of insulin; Z79.4 - termite inspector (current) use of insulin; Z79.4 - termite inspector (current) use of insulin; Z79.4 - termite inspector (current) use of insulin (2) History of osteomyelitis SNOMED Code(s): 138348810 Code(s): Z87.39 - PERSONAL HISTORY OF DISEASES OF THE MS SYS AND CONN TISS Status: Acute Priority: Medium Current Visit: Yes (3) Sepsis SNOMED Code(s): 00363770 Code(s): A41.9 - SEPSIS, UNSPECIFIED ORGANISM Status: Acute Priority: High Current Visit: Yes Qualifiers: Sepsis type: sepsis due to unspecified organism Qualified Code(s): A41.9 - Sepsis, unspecified organism - Problem List Review Problem List Initiated/Reviewed/Updated: Yes - My Orders Last 24 Hours: My Active Orders 06/22/17 03:48 Chest 1V Frontal [CR] Urgent 06/22/17 03:49 Cardiac Monitoring [RC] .As Directed 06/22/17 03:54 Vital Signs [RC] Q1H 06/22/17 04:02 Vancomycin 1 gm Sodium Chloride 0.9% [Normal Saline] 250 ml IV ONETIME - Assessment/Plan Last 24 Hours: My Active Orders 06/22/17 03:48 Chest 1V Frontal [CR] Urgent 06/22/17 03:49 Cardiac Monitoring [RC] .As Directed 06/22/17 03:54 Vital Signs [RC] Q1H 06/22/17 04:02 Vancomycin 1 gm Sodium Chloride 0.9% [Normal Saline] 250 ml IV ONETIME Plan: transfer to [facility] via EMS
[2017-06-22] MEDS ORDERED: HYDROmorphone 1 MG/ML Syringe IVPUSH ONE (05:08)
[2017-06-22 05:34] VITALS: BP 119/57
--- NOTE | 2017-06-22 09:21 | CR ---
Chest 1V Frontal HISTORY: sepsis COMPARISON: 03/20/2017 FINDINGS: Lungs appear clear and normally aerated. Cardiomediastinal silhouette is within normal limits for the AP technique. No vascular redistribution or pleural fluid can be seen. Right-sided pacemaker along w ith atrial and ventricular lead wires appear stable. Left-sided central venous Port-A-Cath is again n oted. Bony structures and soft tissues are unremarkable. IMPRESSION: No acute chest abnormality identified.
== END 2017-06-22 05:57 ==
LOC: JP.ED 02:16
DX: A41.9 Sepsis, unspecified organism (principal); I12.9 Hypertensive chronic kidney disease with stage 1 through stage 4 chronic kidney disease, or unspecified chronic kidney disease; E11.22 Type 2 diabetes mellitus with diabetic chronic kidney disease; E11.65 Type 2 diabetes mellitus with hyperglycemia; N18.9 Chronic kidney disease, unspecified; F17.210 Nicotine dependence, cigarettes, uncomplicated; Z99.2 Dependence on renal dialysis; Z86.2 Personal history of diseases of the blood and blood-forming organs and certain disorders involving the immune mechanism; Z95.2 Presence of prosthetic heart valve; Z79.4 Long term (current) use of insulin; Z79.01 Long term (current) use of anticoagulants; Z79.899 Other long term (current) drug therapy; Z88.8 Allergy status to other drugs, medicaments and biological substances
CPT/HCPCS: 36415; 71010; 80053; 82150; 83605; 83690; 85025; 85610; 86140; 87040; 96361; 96365; 96375; 99285; A9270; J1170; J2060; J3370; J7040; J7050; 87077; 87186

== ENCOUNTER 2017-08-04 02:30 | Emergency (ER) | payer MEDICAID ==
--- NOTE | 2017-08-04 03:37 | EDM.PDOC ---
ED HPI GENERAL MEDICAL PROBLEM - General Chief Complaint: General Stated Complaint: ILLNESS Time Seen by Provider: 08/04/17 03:10 Source of Information: Reports: Patient, Family History Limitations: Reports: No Limitations - History of Present Illness INITIAL COMMENTS - FREE TEXT/NARRATIVE: 42-year-old male with a complicated medical history of poorly controlled diabetes, amputation of the right forefoot, recent sepsis and renal failure with dialysis, has home therapy with IV antibiotics and has an appointment with infectious disease tomorrow to consider stopping antibiotics and pulling his port. However due to noncompliance he has not had any antibiotics for the last 3 days, possibly more because he "forgets". Tonight at 1 AM he suddenly developed shaking chills and rigors, he's had a cough for the past 24 hours but no shortness of breath. He coughed up some scant white sputum and had a brief episode of "dry heaves". He arrives to the emergency room with a temperature of 100.8. I cannot find any record of him receiving a flu vaccination this fall. He denies any dysuria. He is retaining more fluid in his lower extremities and has tense edema from the knees down. Also feels like his abdomen is becoming more distended. No sore throat, rhinitis, rashes, and his surgical wound on his right foot has not developed any drainage or redness. He does have some superficial sores on his back and scalp from scratching. He just had lab work 2 days ago, and one week before that and they look good. Onset: Sudden (Symptoms started suddenly tonight 2 hours ago) Duration: Hour(s): (2 hours) Location: Reports: Generalized Severity: Moderate Associated Symptoms: Reports: Cough, Fever/Chills, Headaches, Nausea/Vomiting. Denies: Confusion, Shortness of Breath - Related Data Allergies Allergy/AdvReac Type Severity Reaction Status Date / Time metformin Allergy Indigestion Verified 06/22/17 02:52 Home Meds: Home Meds Warfarin [Coumadin] 7.5 mg PO DAILY 12/08/13 [History] Isosorbide Mononitrate [Isosorbide Mononitrate ER] 60 mg PO DAILY 03/20/17 [ History] Liraglutide [Victoza] 1.8 units SQ DAILY 03/20/17 [History] Insulin Glargine,Hum.Rec.Anlog [[place]] 46 unit SQ BEDTIME 05/14/17 [ History] Magnesium Oxide [Magnesium] 800 mg PO DAILY 08/04/17 [History] Methocarbamol [Robaxin] 500 mg PO TID PRN 08/04/17 [History] Rifampin [Rifadin] 300 mg PO BID 08/04/17 [History] Past Medical History - Past Health History Medical/Surgical History: Denies Medical/Surgical History HEENT History: Reports: Epistaxis, Hard of Hearing Cardiovascular History: Reports: Heart Murmur, High Cholesterol, Hypertension Respiratory History: Reports: SOB Gastrointestinal History: Reports: Other (See Below) Other Gastrointestinal History: acid reflux Genitourinary History: Reports: Chronic Renal Insuffiency, Other (See Below) Other Genitourinary History: dialysis [facility] no longer using dialysis since. Musculoskeletal History: Reports: Other (See Below) Other Musculoskeletal History: amputations 5 toes R foot 10/08 Skin grafts 06/17 on toes. Neurological History: Reports: None Psychiatric History: Reports: ADD Endocrine/Metabolic History: Reports: Diabetes, Type II, IDDM, Obesity/BMI 30+ Hematologic History: Reports: Anemia Immunologic History: Reports: Other (See Below) Other Immunologic History: MRSA hx pacer site and chest incision Oncologic (Cancer) History: Reports: None Dermatologic History: Reports: Other (See Below) Other Dermatologic History: right foot ulcer - Infectious Disease History Infectious Disease History: Reports: Chicken Pox, MRSA - Past Surgical History HEENT Surgical History: Reports: Cataract Surgery Cardiovascular Surgical History: Reports: Pacer, Valve Replacement GI Surgical History: Reports: None Musculoskeletal Surgical History: Reports: None, Other (See Below) Social & Family History - Tobacco Use Smoking Status *Q: Light Tobacco Smoker Years of Tobacco use: 22 Packs/Tins Daily: 0.5 Used Tobacco, but Quit: No Second Hand Smoke Exposure: No - Caffeine Use Caffeine Use: Reports: None - Alcohol Use Days Per Week of Alcohol Use: 0 - Recreational Drug Use Recreational Drug Use: Yes Drug Use in Last 12 Months: Yes Recreational Drug Type: Reports: Marijuana/Hashish Other Recreational Drug Type: Used Marijuana 2 weeks ago Recreational Drug Use Frequency: Rarely - Living Situation & Occupation Living situation: Reports: with Significant Other (lives with SO Heidi of five years in [place], [place].) Occupation: Employed ED ROS GENERAL - Review of Systems Review Of Systems: See Below Constitutional: Reports: Fever, Chills, Malaise HEENT: Reports: No Symptoms Respiratory: Reports: Cough. Denies: Shortness of Breath, Sputum Cardiovascular: Reports: Palpitations. Denies: Chest Pain GI/Abdominal: Reports: Nausea, Vomiting. Denies: Abdominal Pain : Reports: No Symptoms Skin: Reports: Other (Surgical wound is healing nicely on his right foot. He has a group of "pimples that didn't heal right" over the past 2 weeks on his right scalp, and also some similar wounds on his back) Neurological: Reports: Headache ED EXAM, GENERAL - Physical Exam Exam: See Below Exam Limited By: No Limitations General Appearance: Alert, Anxious Eye Exam: Bilateral Eye: EOMI (No jaundice, hydration normal) Head: Atraumatic Neck: Supple. No: Lymphadenopathy (R), Lymphadenopathy (L) Respiratory/Chest: No Respiratory Distress, Lungs Clear Extremities: Pedal Edema (Tense lower extremity edema bilaterally. Surgical closure wounds on his right foot appear to be healing nicely, just a small amount of erythema and no drainage or fluctuance) Neurological: Alert, Oriented Psychiatric: Anxious Skin Exam: Warm, Dry, Other (Numerous small erythematous lesions on his upper back and right scalp appear to be healing inflamed hair follicles or excoriations) Course - Vital Signs Last Recorded V/S: Last Vital Signs Temp 100.1 F 08/04/17 04:17 Pulse 128 H 08/04/17 04:17 Resp 11 L 08/04/17 04:17 BP 153/97 H 08/04/17 04:17 Pulse Ox 96 08/04/17 04:17 - Orders/Labs/Meds Orders: Active Orders 24 hr Category Date Time Status Vital Signs [RC] Q1H Care 08/04/17 03:17 Active CULTURE BLOOD [BC] Urgent Lab 08/04/17 03:25 Received CULTURE BLOOD [BC] Urgent Lab 08/04/17 03:40 Received Blood Culture x2 Reflex Set [OM.PC] Urgent Oth 08/04/17 03:17 Ordered Labs: Laboratory Tests 08/04/17 08/04/17 08/04/17 Range/Units 03:17 03:40 03:40 WBC 14.0 H (4.5-11.0) K/uL RBC 4.20 L (4.30-5.90) M/uL Hgb 10.6 L (12.0-15.0) g/dL Hct 35.4 L (40.0-54.0) % MCV 84 (80-98) fL MCH 25 L (27-31) pg MCHC 30 L (32-36) % Plt Count 259 (150-400) K/uL Neut % (Auto) 96 H (36-66) % Lymph % (Auto) 3 L (24-44) % [place] % (Auto) 1 L (2-6) % Eos % (Auto) 0 L (2-4) % Baso % (Auto) 0 (0-1) % Sodium 132 L (140-148) mmol/L Potassium 4.0 (3.6-5.2) mmol/L Chloride 99 L (100-108) mmol/L Carbon Dioxide 23 (21-32) mmol/L Anion Gap 14.0 (5.0-14.0) mmol/L BUN 29 H (7-18) mg/dL Creatinine 1.5 H (0.8-1.3) mg/dL Est Cr Clr Drug Dosing TNP Estimated GFR (MDRD) 52 L (>60) Glucose 230 H (74-106) mg/dL Lactic Acid 2.1 H (0.4-2.0) mmol/L Calcium 9.0 (8.5-10.1) mg/dL Total Bilirubin 1.1 H D (0.2-1.0) mg/dL AST 35 (15-37) U/L ALT 23 (12-78) U/L Alkaline Phosphatase 222 H D (46-116) U/L C-Reactive Protein 6.14 H (0.0-0.3) mg/dL Total Protein 7.1 (6.4-8.2) g/dL Albumin 2.5 L (3.4-5.0) g/dL Globulin 4.6 H (2.3-3.5) g/dL Albumin/Globulin Ratio 0.5 L (1.2-2.2) Meds: Medications Discontinued Medications Generic Name Dose Route Start Last Admin Trade Name Freq PRN Reason Stop Dose Admin Heparin Sodium (Porcine) 500 units 08/04/17 03:20 08/04/17 05:07 Heparin Lock Flush 100 Units/Ml FLUSH 500 units ASDIRECTED PRN Administration Other Ertapenem 1 gm/ Sodium 100 mls @ 200 mls/hr 08/04/17 03:45 08/04/17 03:53 Chloride IV 08/04/17 04:14 200 mls/hr ONETIME ONE Administration Sodium Chloride 1,000 mls @ 250 mls/hr 08/04/17 04:00 08/04/17 03:50 Normal Saline IV 250 mls/hr ASDIRECTED ISABELLA Administration - Re-Assessments/Exams Free Text/Narrative Re-Assessment/Exam: 08/04/17 03:41 Monitor shows the patient to be in a similar tachycardia that he was in on June 22 when he presented with an infection. It may be an underlying atrial flutter, the rate is very regular at 136 with an occasional sinus beat. Blood pressure is normal. Temperature 100.8. 2 blood cultures were obtained, influenza antigens, CBC, CMP, lactic acid and CRP. These will be compared to his recent labs of 2 days ago. This may be something as simple as a viral cold, however with him not taking his antibiotics as prescribed causes concern for a bacterial source. 08/04/17 04:31 White count is 14,000, which is elevated from 2 days ago but lactic acid is 2.1 , anion gap is normal, and his blood pressure remained stable. Creatinine and GFR are close to his baseline levels. He was given normal saline 500 mL bolus and 1 g of Invanz IV. Influenza antigens were negative. A recheck of his temperature after being in the emergency room for an hour and a half was 100.2, his symptoms had resolved, he had no more chills and felt fine. A recommendation was made to consider going to [facility] since he has an infectious disease consult in 36 hours anyway but the patient wanted to go home and resume his IV antibiotics. He will return if he starts vomiting, has uncontrolled fever , shortness of breath or other concerns. Departure - Departure Time of Disposition: 05:18 Disposition: Home, Self-Care 01 Condition: Fair Clinical Impression: History of osteomyelitis Fever Qualifiers: Fever type: due to other condition Qualified Code(s): R50.81 - Fever presenting with conditions classified elsewhere Diabetes mellitus type 2 with complications, uncontrolled Qualifiers: Diabetes mellitus exterminator termite insulin use: with exterminator termite use Qualified Code(s): E11.8 - Type 2 diabetes mellitus with unspecified complications - Discharge Information Instructions: Fever, Adult Referrals: Calderon Ng PA-C [Primary Care Provider] - Forms: ED Department Discharge Care Plan Goals: It's very important that you start your IV antibiotics as soon as you get home. Also follow your diabetic medications very closely, acetaminophen for fever control and recheck as scheduled with infectious disease. There should be blood culture results for your infectious disease physician to check at the time of your appointment. Return sooner if fever returns uncontrolled, you have difficulty breathing or persistent vomiting, or develop other concerns. - My Orders Last 24 Hours: My Active Orders 08/04/17 03:17 Vital Signs [RC] Q1H Blood Culture x2 Reflex Set [OM.PC] Urgent 08/04/17 03:25 CULTURE BLOOD [BC] Urgent 08/04/17 03:40 CULTURE BLOOD [BC] Urgent - Assessment/Plan Last 24 Hours: My Active Orders 08/04/17 03:17 Vital Signs [RC] Q1H Blood Culture x2 Reflex Set [OM.PC] Urgent 08/04/17 03:25 CULTURE BLOOD [BC] Urgent 08/04/17 03:40 CULTURE BLOOD [BC] Urgent
[2017-08-04] MEDS ORDERED: Ertapenem 1 GM in Sodium Chloride 0.9% 100 ML IV ONE (03:45)
[2017-08-04] MEDS ORDERED: Sodium Chloride 0.9% 1,000 ML IV SCH (04:00)
[2017-08-04 04:21] VITALS: BP 153/97
== END 2017-08-04 05:19 | disposition home or self-care (01) ==
LOC: JP.ED 02:30
DX: B34.9 Viral infection, unspecified (principal); R50.81 Fever presenting with conditions classified elsewhere; E11.69 Type 2 diabetes mellitus with other specified complication; E11.22 Type 2 diabetes mellitus with diabetic chronic kidney disease; I12.9 Hypertensive chronic kidney disease with stage 1 through stage 4 chronic kidney disease, or unspecified chronic kidney disease; N18.9 Chronic kidney disease, unspecified; M86.9 Osteomyelitis, unspecified; F17.210 Nicotine dependence, cigarettes, uncomplicated; Z79.4 Long term (current) use of insulin; Z79.899 Other long term (current) drug therapy; Z79.01 Long term (current) use of anticoagulants; Z88.8 Allergy status to other drugs, medicaments and biological substances; Z89.431 Acquired absence of right foot
CPT/HCPCS: 36415; 80053; 83605; 85025; 86140; 87040; 87077; 87804; 96361; 96365; 99284; J1335; J1642; J7030; J7040

== ENCOUNTER 2017-09-28 14:51 | Emergency (ER) | payer MEDICAID ==
[2017-09-28 15:13] VITALS: BP 153/80
--- NOTE | 2017-09-28 16:29 | EDM.PDOC ---
ED HPI GENERAL MEDICAL PROBLEM - General Chief Complaint: Lower Extremity Injury/Pain Stated Complaint: RIGHT FOOT BLEEDING Time Seen by Provider: 09/28/17 15:20 Source of Information: Reports: Patient, Family History Limitations: Reports: No Limitations - History of Present Illness INITIAL COMMENTS - FREE TEXT/NARRATIVE: 42-year-old male who had stitches taken out of his right foot after a skin graft has had intermittent bleeding from the lateral aspect of the wound where there is a small amount of wound dehiscence. They were having trouble getting it stopped, in fact it was "spurting" and there was "blood everywhere" at the house. He also has a pain in his left chest wall has been present since this morning that he wants checked. No cough or shortness of breath. Severity: Moderate Associated Symptoms: Reports: Chest Pain. Denies: Fever/Chills, Headaches, Nausea/Vomiting, Shortness of Breath - Related Data Allergies Allergy/AdvReac Type Severity Reaction Status Date / Time metformin Allergy Indigestion Verified 06/22/17 02:52 Home Meds: Home Meds Warfarin [Coumadin] 7.5 mg PO DAILY 12/08/13 [History] Isosorbide Mononitrate [Isosorbide Mononitrate ER] 60 mg PO DAILY 03/20/17 [ History] Liraglutide [Victoza] 1.8 units SQ DAILY 03/20/17 [History] Insulin Glargine,Hum.Rec.Anlog [[place] Solostar] 46 unit SQ BEDTIME 05/14/17 [ History] Magnesium Oxide [Magnesium] 800 mg PO DAILY 08/04/17 [History] Methocarbamol [Robaxin] 500 mg PO TID PRN 08/04/17 [History] Rifampin [Rifadin] 300 mg PO BID 08/04/17 [History] Past Medical History - Past Health History Medical/Surgical History: Denies Medical/Surgical History HEENT History: Reports: Epistaxis, Hard of Hearing Cardiovascular History: Reports: Heart Murmur, High Cholesterol, Hypertension Respiratory History: Reports: SOB Gastrointestinal History: Reports: Other (See Below) Other Gastrointestinal History: acid reflux Genitourinary History: Reports: Chronic Renal Insuffiency, Other (See Below) Other Genitourinary History: dialysis [facility] no longer using dialysis since. Musculoskeletal History: Reports: Other (See Below) Other Musculoskeletal History: amputations 5 toes R foot 10/08 Skin grafts 06/17 on toes. Neurological History: Reports: None Psychiatric History: Reports: ADD Endocrine/Metabolic History: Reports: Diabetes, Type II, IDDM, Obesity/BMI 30+ Hematologic History: Reports: Anemia Immunologic History: Reports: Other (See Below) Other Immunologic History: MRSA hx pacer site and chest incision Oncologic (Cancer) History: Reports: None Dermatologic History: Reports: Other (See Below) Other Dermatologic History: right foot ulcer - Infectious Disease History Infectious Disease History: Reports: Chicken Pox, MRSA - Past Surgical History HEENT Surgical History: Reports: Cataract Surgery Cardiovascular Surgical History: Reports: Pacer, Valve Replacement GI Surgical History: Reports: None Musculoskeletal Surgical History: Reports: None, Other (See Below) Social & Family History - Tobacco Use Smoking Status *Q: Light Tobacco Smoker Years of Tobacco use: 25 Packs/Tins Daily: 1 Used Tobacco, but Quit: No Second Hand Smoke Exposure: No - Caffeine Use Caffeine Use: Reports: Coffee - Alcohol Use Days Per Week of Alcohol Use: 0 - Recreational Drug Use Recreational Drug Use: Yes Drug Use in Last 12 Months: Yes Recreational Drug Type: Reports: Marijuana/Hashish Other Recreational Drug Type: Used Marijuana 2 weeks ago Recreational Drug Use Frequency: Monthly - Living Situation & Occupation Living situation: Reports: with Significant Other (lives with SO Heidi of five years in [place], [place].) Occupation: Employed Review of Systems - Review of Systems Review Of Systems: See Below Constitutional: Denies: Fever Mouth/Throat: Denies: Bleeding Respiratory: Denies: Shortness of Breath Cardiovascular: Reports: Chest Pain (Lateral left chest wall) Genitourinary: Reports: No Symptoms Skin: Denies: Bruising Neurological: Denies: Headache ED EXAM, GENERAL - Physical Exam Exam: See Below Exam Limited By: No Limitations General Appearance: Alert, No Apparent Distress Respiratory/Chest: No Respiratory Distress, Lungs Clear, Other (Patient does have significant palpation tenderness of the left chest wall but no bruising or rash) Cardiovascular: Regular Rate, Rhythm Extremities: Other (Lateral aspect of the graft site on his right foot has a small area of wound dehiscence with active bleeding.) Neurological: Alert, Oriented Psychiatric: Normal Affect, Normal Mood Course - Vital Signs Last Recorded V/S: Last Vital Signs Temp 206.8 F H 09/28/17 15:11 Pulse 106 H 09/28/17 15:10 Resp 16 09/28/17 15:10 BP 153/80 H 09/28/17 15:10 Pulse Ox 99 09/28/17 15:10 - Orders/Labs/Meds Labs: Laboratory Tests 09/28/17 09/28/17 Range/Units 16:03 16:03 WBC 5.3 (4.5-11.0) K/uL RBC 4.33 (4.30-5.90) M/uL Hgb 10.3 L (12.0-15.0) g/dL Hct 34.8 L (40.0-54.0) % MCV 80 (80-98) fL MCH 24 L (27-31) pg MCHC 30 L (32-36) % Plt Count 179 (150-400) K/uL Neut % (Auto) 67 H (36-66) % Lymph % (Auto) 21 L (24-44) % [place] % (Auto) 10 H (2-6) % Eos % (Auto) 2 (2-4) % Baso % (Auto) 1 (0-1) % PT 36.7 H (9.5-12.0) sec INR 3.26 H D (0.80-1.20) - Re-Assessments/Exams Free Text/Narrative Re-Assessment/Exam: 09/28/17 16:37 After discussing the wound with Dr. Johnson, a pressure dressing was applied to the foot which controlled the bleeding. He was given 6 Vicodin to use for pain control of his chest wall pain over the next 24 hours. He will recheck with surgery tomorrow. Departure - Departure Time of Disposition: 16:56 Disposition: Home, Self-Care 01 Condition: Good Clinical Impression: Acute chest wall pain Wound, open, foot with complication Qualifiers: Encounter type: initial encounter Laterality: right Qualified Code(s): S91.301A - Unspecified open wound, right foot, initial encounter - Discharge Information Instructions: Wound Dehiscence Referrals: Denisse Minor MD [Primary Care Provider] - Forms: ED Department Discharge Care Plan Goals: Keep pressure dressing on until recheck tomorrow. Return if significant bleeding through the dressings.
== END 2017-09-28 16:56 | disposition home or self-care (01) ==
LOC: JP.ED 14:51
DX: S91.301A Unspecified open wound, right foot, initial encounter (principal); R07.89 Other chest pain; I12.9 Hypertensive chronic kidney disease with stage 1 through stage 4 chronic kidney disease, or unspecified chronic kidney disease; E11.22 Type 2 diabetes mellitus with diabetic chronic kidney disease; N18.9 Chronic kidney disease, unspecified; F17.210 Nicotine dependence, cigarettes, uncomplicated; Z98.890 Other specified postprocedural states; Z95.2 Presence of prosthetic heart valve; Z95.0 Presence of cardiac pacemaker; Z79.4 Long term (current) use of insulin; Z79.01 Long term (current) use of anticoagulants; Z79.899 Other long term (current) drug therapy; Z88.8 Allergy status to other drugs, medicaments and biological substances; X58.XXXA Exposure to other specified factors, initial encounter
CPT/HCPCS: 36415; 85025; 85610; 99285

== ENCOUNTER 2017-10-01 16:49 | Emergency (ER) | payer MEDICAID ==
--- NOTE | 2017-10-01 17:37 | EDM.PDOC ---
ED HPI GENERAL MEDICAL PROBLEM - General Chief Complaint: Wound Recheck Stated Complaint: RIGHT FOOT BLEEDING 3 OR 4 DAYS Time Seen by Provider: 10/01/17 17:26 Source of Information: Reports: Patient, Family, RN Notes Reviewed History Limitations: Reports: No Limitations - History of Present Illness INITIAL COMMENTS - FREE TEXT/NARRATIVE: 42-year-old gentleman presents emergency department today for wound check, he has had toe amputations on the right side he is anticoagulated with Coumadin Coumadin yesterday was 3.8 he continues to have problems with this he did not take any Coumadin today his wound continues to lose no other symptoms at this time - Related Data Allergies Allergy/AdvReac Type Severity Reaction Status Date / Time metformin Allergy Indigestion Verified 10/01/17 17:15 Home Meds: Home Meds Warfarin [Coumadin] 7.5 mg PO DAILY 12/08/13 [History] Isosorbide Mononitrate [Isosorbide Mononitrate ER] 60 mg PO DAILY 03/20/17 [ History] Liraglutide [Victoza] 1.8 units SQ DAILY 03/20/17 [History] Insulin Glargine,Hum.Rec.Anlog [Toujeo Solostar] 46 unit SQ BEDTIME 05/14/17 [ History] Magnesium Oxide [Magnesium] 800 mg PO DAILY 08/04/17 [History] Methocarbamol [Robaxin] 500 mg PO TID PRN 08/04/17 [History] Rifampin [Rifadin] 300 mg PO BID 08/04/17 [History] Past Medical History HEENT History: Reports: Epistaxis, Hard of Hearing Cardiovascular History: Reports: Heart Murmur, High Cholesterol, Hypertension Respiratory History: Reports: SOB Gastrointestinal History: Reports: Other (See Below) Other Gastrointestinal History: acid reflux Genitourinary History: Reports: Chronic Renal Insuffiency, Other (See Below) Other Genitourinary History: dialysis [facility] no longer using dialysis since. Musculoskeletal History: Reports: Other (See Below) Other Musculoskeletal History: amputations 5 toes R foot 10/08 Skin grafts 06/17 on toes. Psychiatric History: Reports: ADD Endocrine/Metabolic History: Reports: Diabetes, Type II, IDDM, Obesity/BMI 30+ Hematologic History: Reports: Anemia Immunologic History: Reports: Other (See Below) Other Immunologic History: MRSA hx pacer site and chest incision Dermatologic History: Reports: Other (See Below) Other Dermatologic History: right foot ulcer - Infectious Disease History Infectious Disease History: Reports: Chicken Pox, MRSA - Past Surgical History HEENT Surgical History: Reports: Cataract Surgery Cardiovascular Surgical History: Reports: Pacer, Valve Replacement GI Surgical History: Reports: None Musculoskeletal Surgical History: Reports: None, Other (See Below) Social & Family History - Tobacco Use Smoking Status *Q: Current Some Day Smoker Years of Tobacco use: 20 Packs/Tins Daily: 0.2 Used Tobacco, but Quit: No Second Hand Smoke Exposure: No - Caffeine Use Caffeine Use: Reports: Coffee - Alcohol Use Days Per Week of Alcohol Use: 0 - Recreational Drug Use Recreational Drug Use: Yes Drug Use in Last 12 Months: Yes Recreational Drug Type: Reports: Marijuana/Hashish Other Recreational Drug Type: Used Marijuana 2 weeks ago Recreational Drug Use Frequency: Monthly - Living Situation & Occupation Living situation: Reports: with Significant Other (lives with SO Heidi of five years in [place], [place].) Occupation: Employed ED ROS GENERAL - Review of Systems Review Of Systems: See Below Constitutional: Reports: No Symptoms HEENT: Reports: No Symptoms Respiratory: Reports: No Symptoms Cardiovascular: Reports: No Symptoms GI/Abdominal: Reports: No Symptoms : Reports: No Symptoms Skin: Reports: Wound ED EXAM, GENERAL - Physical Exam Exam: See Below Free Text/Narrative:: Examination of the right foot she does have amputation of all digits does have open wound on the lateral aspect discussed continuing to lose pedal pulse is +1 on appreciate any erythema around the wound no active sign of infection Exam Limited By: No Limitations General Appearance: Alert, WD/WN, No Apparent Distress Course - Vital Signs Last Recorded V/S: Last Vital Signs Temp 95.9 F 10/01/17 22:19 Pulse 108 H 10/01/17 22:19 Resp 14 10/01/17 22:19 BP 143/75 H 10/01/17 22:19 Pulse Ox 99 10/01/17 21:13 - Orders/Labs/Meds Orders: Active Orders 24 hr Category Date Time Status Transfuse Red Blood Cells [COMM] Stat Oth 10/01/17 19:02 Ordered Labs: Laboratory Tests 10/01/17 10/01/17 10/01/17 Range/Units 17:43 17:43 17:43 WBC 4.4 L (4.5-11.0) K/uL RBC 2.72 L (4.30-5.90) M/uL Hgb 6.7 L* D (12.0-15.0) g/dL Hct 21.9 L (40.0-54.0) % MCV 81 (80-98) fL MCH 25 L (27-31) pg MCHC 31 L (32-36) % Plt Count 135 L (150-400) K/uL Neut % (Auto) 63 (36-66) % Lymph % (Auto) 24 (24-44) % [place] % (Auto) 11 H (2-6) % Eos % (Auto) 1 L (2-4) % Baso % (Auto) 1 (0-1) % PT 25.7 H (9.5-12.0) sec INR 2.32 H (0.80-1.20) Sodium 138 L (140-148) mmol/L Potassium 5.2 (3.6-5.2) mmol/L Chloride 108 (100-108) mmol/L Carbon Dioxide 25 (21-32) mmol/L Anion Gap 10.2 (5.0-14.0) mmol/L BUN 23 H (7-18) mg/dL Creatinine 1.5 H (0.8-1.3) mg/dL Est Cr Clr Drug Dosing 64.40 mL/min Estimated GFR (MDRD) 52 L (>60) Glucose 214 H (74-106) mg/dL Calcium 8.6 (8.5-10.1) mg/dL Total Bilirubin 0.7 (0.2-1.0) mg/dL AST 18 (15-37) U/L ALT 15 (12-78) U/L Alkaline Phosphatase 92 (46-116) U/L Total Protein 6.0 L (6.4-8.2) g/dL Albumin 2.4 L (3.4-5.0) g/dL Globulin 3.6 H (2.3-3.5) g/dL Albumin/Globulin Ratio 0.7 L (1.2-2.2) Urine Color Urine Appearance Urine pH (4.5-8.0) Ur Specific [place] (1.008-1.030) Urine Protein (NEGATIVE) mg/dL Urine Glucose (UA) (NEGATIVE) mg/dL Urine Ketones (NEGATIVE) mg/dL Urine Occult Blood (NEGATIVE) Urine Nitrite (NEGAITVE) Urine Bilirubin (NEGATIVE) Urine Urobilinogen (NORMAL) mg/dL Ur Leukocyte Esterase (NEGATIVE) Urine RBC (0-5) Urine WBC (0-5) Ur Epithelial Cells Amorphous Sediment Urine Bacteria Urine Mucus Blood Type Gel Antibody Screen Crossmatch 10/01/17 10/01/17 10/01/17 Range/Units 18:04 19:01 23:30 WBC (4.5-11.0) K/uL RBC (4.30-5.90) M/uL Hgb 7.8 L (12.0-15.0) g/dL Hct (40.0-54.0) % MCV (80-98) fL MCH (27-31) pg MCHC (32-36) % Plt Count (150-400) K/uL Neut % (Auto) (36-66) % Lymph % (Auto) (24-44) % [place] % (Auto) (2-6) % Eos % (Auto) (2-4) % Baso % (Auto) (0-1) % PT (9.5-12.0) sec INR (0.80-1.20) Sodium (140-148) mmol/L Potassium (3.6-5.2) mmol/L Chloride (100-108) mmol/L Carbon Dioxide (21-32) mmol/L Anion Gap (5.0-14.0) mmol/L BUN (7-18) mg/dL Creatinine (0.8-1.3) mg/dL Est Cr Clr Drug Dosing mL/min Estimated GFR (MDRD) (>60) Glucose (74-106) mg/dL Calcium (8.5-10.1) mg/dL Total Bilirubin (0.2-1.0) mg/dL AST (15-37) U/L ALT (12-78) U/L Alkaline Phosphatase (46-116) U/L Total Protein (6.4-8.2) g/dL Albumin (3.4-5.0) g/dL Globulin (2.3-3.5) g/dL Albumin/Globulin Ratio (1.2-2.2) Urine Color Yellow Urine Appearance Clear Urine pH 5.0 (4.5-8.0) Ur Specific [place] 1.020 (1.008-1.030) Urine Protein 30 H (NEGATIVE) mg/dL Urine Glucose (UA) Normal (NEGATIVE) mg/dL Urine Ketones Negative (NEGATIVE) mg/dL Urine Occult Blood Moderate (NEGATIVE) Urine Nitrite Negative (NEGAITVE) Urine Bilirubin Negative (NEGATIVE) Urine Urobilinogen Normal (NORMAL) mg/dL Ur Leukocyte Esterase Negative (NEGATIVE) Urine RBC 10-20 H (0-5) Urine WBC 0-5 (0-5) Ur Epithelial Cells Few Amorphous Sediment Few Urine Bacteria Few Urine Mucus Few Blood Type A POSITIVE Gel Antibody Screen Negative Crossmatch See Detail Meds: Medications Discontinued Medications Generic Name Dose Route Start Last Admin Trade Name Freq PRN Reason Stop Dose Admin Silver Nitrate 3 each 10/01/17 18:53 10/01/17 19:03 Silver Nitrate TOP 10/01/17 18:54 3 each ONETIME ONE Administration Silver Nitrate Confirm 10/01/17 18:55 10/01/17 19:04 Silver Nitrate Administered 10/01/17 18:56 Not Given Dose 1 each .ROUTE .STK-MED ONE - Re-Assessments/Exams Free Text/Narrative Re-Assessment/Exam: 10/01/17 19:04 INR is stable at 2.3 the wound did continue to lose silver nitrate sticks were taken over the surface to help with clotting, of note he was found to have a hemoglobin of 6.7 he is asymptomatic other than feeling fatigued and tired, plan is to transfuse 1 unit packed red blood cells and then reevaluate Departure - Departure Time of Disposition: 23:53 Disposition: Home, Self-Care 01 Condition: Fair Clinical Impression: Normochromic anemia Wound, open, foot with complication Qualifiers: Encounter type: initial encounter Laterality: right Qualified Code(s): S91.301A - Unspecified open wound, right foot, initial encounter - Discharge Information Referrals: Denisse Minor MD [Primary Care Provider] - Forms: ED Department Discharge Additional Instructions: Please keep your follow-up appointment with Dr. Johnson on Tuesday, call return to the emergency department worsening of symptoms - My Orders Last 24 Hours: My Active Orders 10/01/17 19:02 Transfuse Red Blood Cells [COMM] Stat - Assessment/Plan Last 24 Hours: My Active Orders 10/01/17 19:02 Transfuse Red Blood Cells [COMM] Stat Plan: Assessment Acuity = acute Site and laterality = normochromic anemia comp came in a patient with supratherapeutic INR yesterday, not be is most type II and recent amputation of digits one through 5 right foot Etiology = probably related to supratherapeutic INR Manifestations = none Location of injury = Home Lab values = hemoglobin 6.7 normochromic anemia now 7.8 after 1 unit red blood cells platelets low at 135 consistent thrombocytopenia INR therapeutic at 2.3 to red in elevated 1.5 consistent chronic renal failure stage GIII a glucose elevated to 14 consistent hyper glycemia albumin low at 2.4 consistent hypoalbuminemia urinalysis reveals 10-20 rbc's consists with hematuria Plan He had good improvement after transfusion of blood plan is discharge home he does have follow-up with his primary care provider in 3 days This note was dictated using [email or web address] voice recognition software please call with any questions on syntax or dawood.
[2017-10-01] MEDS ORDERED: Silver Nitrate Applicator Each TOP ONE (18:53)
[2017-10-01] MEDS ORDERED: Silver Nitrate Applicator Each ONE (18:55)
[2017-10-01 23:54] VITALS: BP 140/83
== END 2017-10-02 00:10 | disposition home or self-care (01) ==
LOC: JP.ED 16:49
DX: S91.301A Unspecified open wound, right foot, initial encounter (principal); D64.9 Anemia, unspecified; E78.00 Pure hypercholesterolemia, unspecified; E66.9 Obesity, unspecified; E11.22 Type 2 diabetes mellitus with diabetic chronic kidney disease; I12.9 Hypertensive chronic kidney disease with stage 1 through stage 4 chronic kidney disease, or unspecified chronic kidney disease; F17.210 Nicotine dependence, cigarettes, uncomplicated; Z88.8 Allergy status to other drugs, medicaments and biological substances; Z79.01 Long term (current) use of anticoagulants; Z79.899 Other long term (current) drug therapy; Z79.4 Long term (current) use of insulin; Y83.9 Surgical procedure, unspecified as the cause of abnormal reaction of the patient, or of later complication, without mention of misadventure at the time of the procedure
CPT/HCPCS: 36415; 36430; 80053; 81001; 85018; 85025; 85610; 86850; 86900; 86901; 86920; 86922; 99284; P9016

== ENCOUNTER 2017-10-05 12:39 | Observation (INO) | payer MEDICAID ==
[2017-10-05] MEDS ORDERED: Acetaminophen/oxyCODONE 325-5 MG Tab PO PRN (14:30)
[2017-10-05] MEDS ORDERED: Methocarbamol 500 MG Tab PO PRN (14:31)
[2017-10-05] MEDS: Sodium Chloride 0.9% 1,000 ML IV SCH (15:34)
[2017-10-05] MEDS: Ertapenem 1 GM in Sodium Chloride 0.9% 100 ML IV SCH (15:35)
[2017-10-05] MEDS: Furosemide 20 MG Tab PO SCH (17:15)
[2017-10-05] MEDS ORDERED: INSULIN GLARGINE SUBCUT SCH (21:00)
[2017-10-06] MEDS ORDERED: LIRAGLUTIDE 0.6 MG/0.1 ML SUBCUT SCH (01:45)
[2017-10-06] MEDS: Sodium Chloride 0.9% 1,000 ML IV SCH (06:23)
[2017-10-06] MEDS ORDERED: Liraglutide (rDNA Origin) 0.6 MG/0.1 ML 3 ML Pen SUBCUT SCH (09:00)
[2017-10-06] MEDS ORDERED: Isosorbide Mononitrate 30 MG Tab.ER PO SCH (09:00)
[2017-10-06] MEDS: Furosemide 20 MG Tab PO SCH (09:13)
[2017-10-06] MEDS ORDERED: fentaNYL 100 MCG/2 ML SDV ONE (10:00)
[2017-10-06] MEDS ORDERED: Midazolam 1 MG/ML 2 ML SDV ONE (10:00)
[2017-10-06] MEDS ORDERED: Propofol 200 MG/20 ML SDV ONE (10:00)
[2017-10-06] MEDS: Ertapenem 1 GM in Sodium Chloride 0.9% 100 ML IV SCH (15:36)
[2017-10-06 15:37] VITALS: BP 141/78
--- NOTE | 2017-10-07 07:35 | OR ---
DATE OF PROCEDURE: 10/06/2017 PROCEDURES: 1. Exploration for postoperative hemorrhage, right foot. 2. Ligation of right #1 digital artery, medial (42688). 3. Debridement of right foot (03150, debridement area approximately 1 cm x 2 cm). COMPLICATIONS: None. TERRITORY SUPERVISOR: None. INDICATIONS: A 42-year-old male who underwent a transmetatarsal amputation by a digital account supervisor at another facility greater than 7 days ago with ongoing bleeding requiring surgical intervention. RISKS: Risks, benefits, alternatives, limitations including, but not limited to infection, bleeding, significant cardiovascular events or renal issues were explained to the patient including were explained to him. He understands these risks and wished to proceed. PREOPERATIVE DIAGNOSIS: Bleeding digital artery, medial, #1 toe, right foot. POSTOPERATIVE DIAGNOSIS: Bleeding digital artery, medial, #1 toe, right foot. ANESTHESIA: MAC/local. PROCEDURE DETAIL: The patient was placed in supine position. The previous incision was opened bluntly. Debridement was then performed due to risk of necrotic tissue noted in this area. [employer] scissors were used to enlarge the area. Eventually, the digital artery was bleeding and this was controlled with combination of suture-ligation, thrombus seal, and electrocautery. Once the bleeding was controlled, this was observed for approximately 2 minutes. No additional bleeding was noted. The wound was then thoroughly irrigated and debridement of the tissue was again performed. No other digital arteries were noted to be bleeding. Floseal was then injected and left in the wound itself. The wound was then closed with 2-0 nylon interrupted sutures. A single piece of one-quarter inch iodoform gauze was placed in the wound. A pressure dressing was applied in a compression fashion. No other abnormalities noted. The patient tolerated the procedure well. Elmer Johnson MD /[id number]
--- NOTE | 2017-10-11 08:54 | DISCH ---
DISCHARGE DIAGNOSIS: Status post ligation of the left digital artery, medial. SUMMARY OF HOSPITAL COURSE: A pleasant 42-year-old male who had a metatarsal amputation performed at another facility. The patient was seen in clinic, he was found to have active arterial bleeding. He is taken to the operating room. This was explored and the left medial digital artery was found to be bleeding and was suture ligated. As far as the rest of his hospitalization is concerned, he did well, and had no issues. Prior to discharge, his pain was well controlled. No nausea, vomiting, shortness of breath, or chest pain. FOLLOWUP: Follow up with Surgery in 7 to 14 days. ACTIVITY: No lifting greater than 30 pounds x30 days. This also includes very limited mobility with the CAM boot. DISCHARGE MEDICATIONS: Same as in admission.
== END 2017-10-06 17:30 | disposition home or self-care (01) ==
LOC: JP.BLOODTR 12:39 → JP.MS 14:05
PROVIDERS: ADMIT Surgery; ATTEND Surgery
DX: I97.618 Postprocedural hemorrhage of a circulatory system organ or structure following other circulatory system procedure (principal); E11.22 Type 2 diabetes mellitus with diabetic chronic kidney disease; I12.9 Hypertensive chronic kidney disease with stage 1 through stage 4 chronic kidney disease, or unspecified chronic kidney disease; N18.9 Chronic kidney disease, unspecified; Z88.8 Allergy status to other drugs, medicaments and biological substances; Z79.01 Long term (current) use of anticoagulants; Z79.4 Long term (current) use of insulin; Z79.899 Other long term (current) drug therapy; E78.00 Pure hypercholesterolemia, unspecified; E66.9 Obesity, unspecified; Z68.30 Body mass index [BMI] 30.0-30.9, adult; Z95.2 Presence of prosthetic heart valve; F17.210 Nicotine dependence, cigarettes, uncomplicated
CPT/HCPCS: 11043; 36415; 36430; 37799; 80053; 82962; 85027; 86850; 86900; 86901; 86920; 86922; 96361; 96365; A9270; G0378; J1335; J2250; J2704; J3010; J7030; J7040; P9016

== ENCOUNTER 2017-12-09 11:49 | Inpatient (IN) | payer MEDICAID ==
[2017-12-09] MEDS ORDERED: oxyCODONE 5 MG Tab PO PRN (14:42)
[2017-12-09] MEDS ORDERED: Magnesium Hydroxide 400 MG/5 ML Susp 30 ML Cup PO PRN (14:42)
[2017-12-09] MEDS ORDERED: 50% Dextrose in Water 50 ML Syringe IV PRN (14:42)
[2017-12-09] MEDS ORDERED: Polyethylene Glycol 3350 Powder 17 GM Packet PO PRN (14:42)
[2017-12-09] MEDS ORDERED: Sodium Chloride 0.9% 10 ML Syringe FLUSH PRN (14:42)
[2017-12-09] MEDS ORDERED: Ondansetron 4 MG/2 ML SDV IV PRN (14:42)
[2017-12-09] MEDS ORDERED: Glucose Gel 15 GM in 37.5 GM Tube PO PRN (14:42)
[2017-12-09] MEDS ORDERED: Albuterol 0.083% 2.5 MG/3 ML Neb Soln NEB PRN (14:42)
[2017-12-09] MEDS ORDERED: Acetaminophen 325 MG Tab PO PRN (14:42)
--- NOTE | 2017-12-09 14:42 | PCM.HP ---
H&P History of Present Illness - General Date of Service: 12/09/17 Admit Problem/Dx: Admission Diagnosis/Problem Admission Diagnosis/Problem Peripheral edema Source of Information: Patient, Old Records, Provider, RN Notes Reviewed History Limitations: Reports: No Limitations - History of Present Illness Initial Comments - Free Text/Narative: Mr. Law is a 42-year-old gentleman who is admitted as a direct admission from the urgent care clinic with anasarca and pulmonary edema. Over the past 4 weeks he reports that he is gained approximately 30 pounds and has become progressively more short of breath and weak. He developed shortness of breath with fairly minimal exertion and also is had symptoms of PND. Peripheral edema in the legs extends all the way into the buttocks and lower abdomen. He has had no fevers chills or sweats and denies any symptoms of chest pain or pressure. He has a known history of congenital heart disease and is status post aortic valve replacement surgery, he's had a history of ventricular dysrhythmias. - Related Data Allergies/Adverse Reactions: Allergies Allergy/AdvReac Type Severity Reaction Status Date / Time metformin Allergy Indigestion Verified 10/01/17 17:15 vancomycin Allergy Other Verified 10/05/17 13:31 Home Medications: Home Meds Warfarin [Coumadin] 12.5 mg PO DAILY 12/08/13 [History] Liraglutide [Victoza] 1.8 units SQ DAILY 03/20/17 [History] Furosemide 20 mg PO DAILY 10/05/17 [History] hydrALAZINE [Apresoline] 25 mg PO TID 10/06/17 [History] Past Medical History - Past Health History Medical/Surgical History: Denies Medical/Surgical History HEENT History: Reports: Epistaxis, Hard of Hearing Cardiovascular History: Reports: Heart Murmur, High Cholesterol, Hypertension Respiratory History: Reports: SOB Gastrointestinal History: Reports: Other (See Below) Other Gastrointestinal History: acid reflux Genitourinary History: Reports: Chronic Renal Insuffiency, Other (See Below) Other Genitourinary History: dialysis [facility] no longer using dialysis since. Musculoskeletal History: Reports: Other (See Below) Other Musculoskeletal History: amputations 5 toes R foot 10/08 Skin grafts 06/17 on toes. Neurological History: Reports: None Psychiatric History: Reports: ADD Endocrine/Metabolic History: Reports: Diabetes, Type II, IDDM, Obesity/BMI 30+ Hematologic History: Reports: Anemia Immunologic History: Reports: Other (See Below) Other Immunologic History: MRSA hx pacer site and chest incision Oncologic (Cancer) History: Reports: None Dermatologic History: Reports: Other (See Below) Other Dermatologic History: right foot ulcer - Infectious Disease History Infectious Disease History: Reports: Chicken Pox - Past Surgical History HEENT Surgical History: Reports: Cataract Surgery Cardiovascular Surgical History: Reports: Pacer, Valve Replacement, Other (See Below) Other Cardiovascular Surgeries/Procedures: defib vest Musculoskeletal Surgical History: Reports: Other (See Below) Other Musculoskeletal Surgeries/Procedures:: amb partial right foot Social & Family History - Tobacco Use Smoking Status *Q: Current Every Day Smoker Years of Tobacco use: 26 Packs/Tins Daily: 0.5 Used Tobacco, but Quit: No Second Hand Smoke Exposure: Yes - Caffeine Use Caffeine Use: Reports: Coffee, Soda - Alcohol Use Days Per Week of Alcohol Use: 0 - Recreational Drug Use Recreational Drug Use: No Drug Use in Last 12 Months: Yes Recreational Drug Type: Reports: Marijuana/Hashish Other Recreational Drug Type: Used Marijuana 2 weeks ago Recreational Drug Use Frequency: Monthly - Living Situation & Occupation Living situation: Reports: with Significant Other (lives with SO Heidi of five years in [place], [place].) Occupation: Employed H&P Review of Systems - Review of Systems: Review Of Systems: See Below General: Reports: Weakness. Denies: Fever, Chills HEENT: Reports: No Symptoms Pulmonary: Reports: Shortness of Breath. Denies: Wheezing, Pleuritic Chest Pain , Cough, Sputum, Hemoptysis Cardiovascular: Reports: Dyspnea on Exertion, PND, Edema. Denies: Chest Pain, Palpitations, Orthopnea, Lightheadedness, Syncope Gastrointestinal: Reports: No Symptoms Genitourinary: Reports: No Symptoms Musculoskeletal: Reports: No Symptoms Skin: Reports: No Symptoms Psychiatric: Reports: No Symptoms Neurological: Reports: No Symptoms Hematologic/Lymphatic: Reports: No Symptoms Immunologic: Reports: No Symptoms Exam - Exam Exam: See Below - Vital Signs Vital Signs: Last Vital Signs Temp 97.7 F 12/09/17 12:00 Pulse 100 12/09/17 12:40 Resp 15 12/09/17 12:40 BP 208/104 H 12/09/17 12:40 Pulse Ox 97 04/20/18 12:40 Weight: 297 lb 2.93 oz - Exam Quality Assessment: DVT Prophylaxis General: Alert, Oriented, Cooperative, Mild Distress HEENT: Conjunctiva Clear, Hearing Intact, Mucosa Moist & [place], Normal Nasal Septum, Posterior Pharynx Clear, Pupils Equal Neck: Supple, Trachea Midline, +2 Carotid Pulse wo Bruit Lungs: Decreased Breath Sounds, Rales. No: Crackles, Rhonchi, Rub, Stridor, Wheezing Cardiovascular: Regular Rhythm, Normal S1, Normal S2, Tachycardia, Systolic Murmur. No: Irregular Rhythm, Bradycardia, Diastolic Murmur GI/Abdominal Exam: Soft, Non-Tender, No Organomegaly, No Distention Back Exam: Normal Inspection, Full Range of Motion Extremities: Non-Tender, Pedal Edema Skin: Warm, Dry, Intact Neurological: Cranial Nerves Intact, Strength Equal Bilateral, Normal Speech, Normal Tone. No: Focal Deficit Neuro Extensive - Mental Status: Alert, Oriented x3, Normal Mood/Affect, Normal Cognition, Memory Intact *Q Meaningful Use (ADM) - VTE Risk Assess *Q Each Risk Factor Represents 1 Point: Swollen Legs, Current, Obesity ( BMI > 25 kg/m2), Congestive heart failure (CHF) Total Score 1 Point Risk Factors: 3 Each Risk Factor Represents 2 Points: None Total Score 2 Point Risk Factors: 0 Each Risk Factor Represents 3 Points: None Total Score 3 Point Risk Factors: 0 Each Risk Factor Represents 5 Points: None Total Score 5 Point Risk Factors: 0 Venous Thromboembolism Risk Factor Score *Q: 3 Problem List Initiated/Reviewed/Updated: Yes Orders Last 24hrs: Active Orders 24 hr Category Date Time Status Patient Status Manage Transfer [TRANSFER] Routine ADT 12/09/17 14:23 Active Resuscitation Status Routine Resus Stat 12/09/17 14:28 Ordered Assessment/Plan Comment:: ASSESSMENT AND PLAN ANASARCA WITH PULMONARY EDEMA-significant weight gain over the past month associated with marked peripheral edema extending all the way into the buttocks as well as lower abdominal wall. During this period of time weight has gone up approximately 33 pounds he's developed increased weakness as well as shortness of breath and PND. -Bumex 4 mg IV now -Bumex 2 mg IV every 8 hours, begin this evening -2 g sodium diet - echocardiogram to assess left ventricular function TYPE 2 DIABETES MELLITUS -Continue outpatient medications -4 times a day glucometers -low-dose sliding scale NovoLog HISTORY OF CARDIAC DISEASE -including history of ventricular dysrhythmias and aortic valve disease status post aortic valve replacement -continue outpatient medications CHRONIC KIDNEY DISEASE STAGE III -closely monitor urine output and renal function with diuresis MAINTENANCE ISSUES -DVT prophylaxis; Lovenox 40 mg subcutaneous daily -GI prophylaxis;Not indicated -Oakley catheter; not indicated -Nutrition; 2 g sodium, consistent carb diet -Nicotine dependence; not required CODE STATUS- FULL CODE ADMISSION STATUS-patient will be admitted to inpatient status, expect at least a 2 night hospital stay for evaluation and management of problems as outlined above. At the time of this admission I do not reasonably expected evaluation and management of this problem will require more than a 96 hour hospital stay. DISPOSITION-anticipate discharge to home after the hospital stay. PRIMARY CARE PROVIDER- he does not currently have a primary care provider
[2017-12-09] MEDS ORDERED: Bumetanide 2.5 MG/10 ML MDV IVPUSH ONE (15:00)
[2017-12-09] MEDS: hydrALAZINE 25 MG Tab PO SCH ×2 (15:09→21:08)
[2017-12-09] MEDS: Enoxaparin 40 MG/0.4 ML Syringe SUBCUT SCH (15:24)
[2017-12-09] MEDS: Insulin Aspart 100 Units/ML 3 ML Pen SUBCUT SCH ×2 (16:22→21:06)
[2017-12-09] MEDS: Bumetanide 2.5 MG/10 ML MDV IVPUSH SCH (21:07)
[2017-12-10] MEDS: Bumetanide 2.5 MG/10 ML MDV IVPUSH SCH ×3 (06:15→21:30)
[2017-12-10] MEDS: Insulin Aspart 100 Units/ML 3 ML Pen SUBCUT SCH ×4 (06:43→21:13)
[2017-12-10] MEDS: Liraglutide (rDNA Origin) 0.6 MG/0.1 ML 3 ML Pen SUBCUT SCH (08:14)
[2017-12-10] MEDS: hydrALAZINE 25 MG Tab PO SCH ×3 (08:14→21:31)
[2017-12-10] MEDS: Magnesium Oxide 400 MG Tab PO SCH ×2 (09:30→21:32)
[2017-12-10] MEDS: Magnesium Sulfate/Water 2 GM in Premix Bag 1 BAG IV SCH ×2 (09:31→15:30)
--- NOTE | 2017-12-10 09:38 | PCM.PN ---
- General Info Date of Service: 12/10/17 Subjective Update: Mr. Law is been stable since admission, good diuresis thus far of approximately 2 L. He reports less shortness of breath and he noted over the past few days. Vital signs have been stable and he has remained afebrile. - Review of Systems General: Denies: Fever, Chills Pulmonary: Reports: No Symptoms Cardiovascular: Reports: Edema. Denies: Chest Pain, Dyspnea on Exertion, Orthopnea, PND Gastrointestinal: Reports: No Symptoms - Patient Data Vitals - Most Recent: Last Vital Signs Temp 98.6 F 12/10/17 08:00 Pulse 112 H 12/10/17 08:00 Resp 18 12/10/17 08:00 BP 189/92 H 12/10/17 08:14 Pulse Ox 94 L 12/10/17 08:00 Weight - Most Recent: 328 lb 7.82 oz I&O - Last 24 Hours: Intake & Output 12/09/17 12/10/17 12/10/17 22:59 06:59 14:59 Intake Total 840 Output Total 1350 1500 400 Balance -510 -1500 -400 Lab Results Last 24 Hours: Laboratory Results - last 24 hr 12/10/17 12/10/17 Range/Units 05:32 05:32 WBC 6.3 (4.5-11.0) K/uL RBC 4.05 L (4.30-5.90) M/uL Hgb 9.2 L (12.0-15.0) g/dL Hct 31.5 L (40.0-54.0) % MCV 78 L (80-98) fL MCH 23 L (27-31) pg MCHC 29 L (32-36) % Plt Count 268 (150-400) K/uL Neut % (Auto) 75 H (36-66) % Lymph % (Auto) 14 L (24-44) % [place] % (Auto) 9 H (2-6) % Eos % (Auto) 1 L (2-4) % Baso % (Auto) 1 (0-1) % Sodium 136 L (140-148) mmol/L Potassium 4.1 (3.6-5.2) mmol/L Chloride 101 (100-108) mmol/L Carbon Dioxide 27 (21-32) mmol/L Anion Gap 12.1 (5.0-14.0) mmol/L BUN 22 H (7-18) mg/dL Creatinine 1.4 H (0.8-1.3) mg/dL Est Cr Clr Drug Dosing 69.90 mL/min Estimated GFR (MDRD) 56 L (>60) Glucose 231 H (74-106) mg/dL Calcium 8.3 L (8.5-10.1) mg/dL Magnesium 1.5 L (1.8-2.4) mg/dL Total Bilirubin 1.2 H (0.2-1.0) mg/dL AST 23 (15-37) U/L ALT 19 (12-78) U/L Alkaline Phosphatase 122 H (46-116) U/L Total Protein 6.8 (6.4-8.2) g/dL Albumin 2.3 L (3.4-5.0) g/dL Globulin 4.5 H (2.3-3.5) g/dL Albumin/Globulin Ratio 0.5 L (1.2-2.2) Med Orders - Current: Current Medications Acetaminophen (Tylenol) 650 mg PO Q4H PRN PRN Reason: Pain (Mild 1-3)/fever Albuterol (Proventil Neb Soln) 2.5 mg NEB Q4H PRN PRN Reason: Shortness Of Breath/wheezing Bumetanide (Bumex) 2 mg IVPUSH Q8H [facility] Last Admin: 12/10/17 06:15 Dose: 2 mg Dextrose (Glutose 15) 15 gm PO ONETIME PRN PRN Reason: Hypoglycemia Dextrose/Water (Dextrose 50% In Water) 50 ml IV ONETIME PRN PRN Reason: Hypoglycemia Enoxaparin Sodium (Lovenox) 40 mg SUBCUT Q24H [facility] Last Admin: 12/09/17 15:24 Dose: 40 mg Hydralazine HCl (Apresoline) 25 mg PO TID [facility] Last Admin: 12/10/17 08:14 Dose: 25 mg Magnesium Sulfate 2 gm/ Premix 50 mls @ 25 mls/hr IV Q6H [facility] Stop: 12/10/17 16:59 Last Admin: 12/10/17 09:31 Dose: 25 mls/hr Insulin Aspart (Novolog) 0 unit SUBCUT QIDACANDBED [facility]; Protocol Last Admin: 04/21/18 06:43 Dose: 2 units Liraglutide (Victoza) 1.8 mg SUBCUT DAILY [facility] Last Admin: 12/10/17 08:14 Dose: 1.8 units Magnesium Hydroxide (Milk Of Magnesia) 30 ml PO Q12H PRN PRN Reason: Constipation Magnesium Oxide (Magnesium Oxide) 400 mg PO BID [facility] Last Admin: 12/10/17 09:30 Dose: 400 mg Ondansetron HCl (Zofran) 4 mg IV Q4H PRN PRN Reason: Nausea/Vomiting Oxycodone HCl (Oxycodone) 5 mg PO Q4H PRN PRN Reason: Pain (moderate 4-6) Polyethylene Glycol (Miralax) 17 gm PO DAILY PRN PRN Reason: Constipation Senna/Docusate Sodium (Senna Plus) 1 tab PO BID PRN PRN Reason: Constipation Sodium Chloride (Saline Flush) 10 ml FLUSH ASDIRECTED PRN PRN Reason: Keep Vein Open Discontinued Medications Bumetanide (Bumex) 4 mg IVPUSH ONETIME ONE Stop: 12/09/17 15:01 Last Admin: 12/09/17 15:15 Dose: 4 mg - Exam Quality Assessment: DVT Prophylaxis General: Alert, Oriented, Cooperative, No Acute Distress Lungs: Clear to Auscultation, Normal Respiratory Effort Cardiovascular: Regular Rhythm, Tachycardia. No: Irregular Rhythm, Bradycardia , Murmurs GI/Abdominal Exam: Soft, Non-Tender, No Organomegaly, No Distention Back Exam: Normal Inspection, Full Range of Motion Extremities: Non-Tender, Pedal Edema Skin: Warm, Dry, Intact - Problem List Review Problem List Initiated/Reviewed/Updated: Yes - My Orders Last 24 Hours: My Active Orders 12/09/17 14:00 hydrALAZINE [Apresoline] 25 mg PO TID 12/09/17 14:28 Resuscitation Status Routine 12/09/17 14:42 Ambulate [RC] QID Blood Glucose Check, Bedside [RC] QIDACANDBED Communication Order [RC] STAT Diabetes Education [RC] Click to Edit Height and Weight [RC] Q24H Intake and Output [RC] QSHIFT Notify Provider Vital Signs [RC] ASDIRECTED Notify Provider [RC] PRN Oxygen Therapy [RC] PRN RT Aerosol Therapy [RC] ASDIRECTED Up to Chair [RC] QID VTE/DVT Education [RC] Per Unit Routine Acetaminophen [Tylenol] 650 mg PO Q4H PRN Albuterol [Proventil Neb Soln] 2.5 mg NEB Q4H PRN Dextrose 50% in Water 50 ml IV ONETIME PRN Dextrose [Glutose 15] 15 gm PO ONETIME PRN Docusate Sodium/Sennosides [Senna Plus] 1 tab PO BID PRN Magnesium Hydroxide [Milk of Magnesia] 30 ml PO Q12H PRN Ondansetron [Zofran] 4 mg IV Q4H PRN Polyethylene Glycol 3350 [MiraLAX] 17 gm PO DAILY PRN Sodium Chloride 0.9% [Saline Flush] 10 ml FLUSH ASDIRECTED PRN oxyCODONE 5 mg PO Q4H PRN Saline Lock Insert [OM.PC] Routine 12/09/17 16:00 Enoxaparin [Lovenox] 40 mg SUBCUT Q24H 12/09/17 16:30 GLUCOSE POC LAB TO COLLECT [POC] QIDACANDBED 12/09/17 17:00 Insulin Aspart [NovoLOG] See Protocol SUBCUT QIDACANDBED 12/09/17 21:00 GLUCOSE POC LAB TO COLLECT [POC] QIDACANDBED 12/09/17 22:00 Bumetanide [Bumex] 2 mg IVPUSH Q8H 12/09/17 Lunch 2 Gram Sodium Diet [DIET] Consistent Carbohydrate Diet [DIET] 12/10/17 09:00 Liraglutide [Victoza] 1.8 mg SUBCUT DAILY Magnesium Oxide 400 mg PO BID Magnesium Sulfate/Water [Magnesium Sulfate 2 GM in Water 50 ML] 2 gm Premix Bag 1 bag IV Q6H 12/10/17 09:31 Patient Status [ADT] Routine Cardiac Monitoring [RC] .As Directed 12/11/17 05:00 BASIC METABOLIC PANEL,BMP [CHEM] Timed MAGNESIUM [CHEM] Timed 12/11/17 07:30 GLUCOSE POC LAB TO COLLECT [POC] QIDACANDBED 12/11/17 11:30 GLUCOSE POC LAB TO COLLECT [POC] QIDACANDBED 12/11/17 16:30 GLUCOSE POC LAB TO COLLECT [POC] QIDACANDBED 12/11/17 21:00 GLUCOSE POC LAB TO COLLECT [POC] QIDACANDBED 12/12/17 07:30 GLUCOSE POC LAB TO COLLECT [POC] QIDACANDBED 12/12/17 11:30 GLUCOSE POC LAB TO COLLECT [POC] QIDACANDBED 12/12/17 16:30 GLUCOSE POC LAB TO COLLECT [POC] QIDACANDBED 12/12/17 21:00 GLUCOSE POC LAB TO COLLECT [POC] QIDACANDBED 12/13/17 07:30 GLUCOSE POC LAB TO COLLECT [POC] QIDACANDBED 12/13/17 11:30 GLUCOSE POC LAB TO COLLECT [POC] QIDACANDBED 12/13/17 16:30 GLUCOSE POC LAB TO COLLECT [POC] QIDACANDBED 12/13/17 21:00 GLUCOSE POC LAB TO COLLECT [POC] QIDACANDBED 12/14/17 07:30 GLUCOSE POC LAB TO COLLECT [POC] QIDACANDBED 12/14/17 11:30 GLUCOSE POC LAB TO COLLECT [POC] QIDACANDBED - Plan Plan:: ASSESSMENT AND PLAN ANASARCA WITH PULMONARY EDEMA-significant improvement in shortness of breath since admission, continues to have marked peripheral and central edema. Good diuresis thus far on current therapy with Bumex -Bumex 2 mg IV every 8 hours -2 g sodium diet - echocardiogram to assess left ventricular function TYPE 2 DIABETES MELLITUS -Continue outpatient medications -4 times a day glucometers -low-dose sliding scale NovoLog HISTORY OF CARDIAC DISEASE -including history of ventricular dysrhythmias and aortic valve disease status post aortic valve replacement -continue outpatient medications CHRONIC KIDNEY DISEASE STAGE III -closely monitor urine output and renal function with diuresis MAINTENANCE ISSUES -DVT prophylaxis; Lovenox 40 mg subcutaneous daily -GI prophylaxis;Not indicated -Oakley catheter; not indicated -Nutrition; 2 g sodium, consistent carb diet -Nicotine dependence; not required CODE STATUS- FULL CODE ADMISSION STATUS-patient will be admitted to inpatient status, expect at least a 2 night hospital stay for evaluation and management of problems as outlined above. At the time of this admission I do not reasonably expected evaluation and management of this problem will require more than a 96 hour hospital stay. DISPOSITION-anticipate discharge to home after the hospital stay. PRIMARY CARE PROVIDER- he does not currently have a primary care provider
[2017-12-10] MEDS: Enoxaparin 40 MG/0.4 ML Syringe SUBCUT SCH (15:32)
[2017-12-11] MEDS: Bumetanide 2.5 MG/10 ML MDV IVPUSH SCH ×3 (05:53→20:59)
[2017-12-11] MEDS: Insulin Aspart 100 Units/ML 3 ML Pen SUBCUT SCH ×4 (06:48→20:57)
[2017-12-11] MEDS: hydrALAZINE 25 MG Tab PO SCH ×3 (08:33→20:59)
[2017-12-11] MEDS: Liraglutide (rDNA Origin) 0.6 MG/0.1 ML 3 ML Pen SUBCUT SCH (08:37)
[2017-12-11] MEDS: Magnesium Oxide 400 MG Tab PO SCH ×2 (08:37→20:59)
[2017-12-11] MEDS ORDERED: Magnesium Sulfate/Water 2 GM in Premix Bag 1 BAG IV ONE (10:00)
--- NOTE | 2017-12-11 10:27 | PCM.PN ---
- General Info Date of Service: 12/11/17 Subjective Update: Mr. Law has had further diuresis over the past 24 hours, with improvement in peripheral edema. Renal function has remained stable thus far been vital signs have been good. - Review of Systems General: Denies: Fever, Weakness, Chills Pulmonary: Reports: Shortness of Breath. Denies: Pleuritic Chest Pain, Cough, Sputum, Hemoptysis, Wheezing Cardiovascular: Reports: Dyspnea on Exertion, Edema. Denies: Chest Pain, Palpitations, Orthopnea, PND Gastrointestinal: Reports: No Symptoms - Patient Data Vitals - Most Recent: Last Vital Signs Temp 98.7 F 12/11/17 08:42 Pulse 118 H 12/11/17 08:42 Resp 18 12/11/17 08:42 BP 145/90 H 12/11/17 08:42 Pulse Ox 93 L 12/11/17 08:42 Weight - Most Recent: 307 lb 12.245 oz I&O - Last 24 Hours: Intake & Output 12/10/17 12/11/17 12/11/17 22:59 06:59 14:59 Intake Total 1655 Output Total 1350 1350 Balance 305 -1350 Lab Results Last 24 Hours: Laboratory Results - last 24 hr 12/11/17 Range/Units 04:30 Sodium 138 L (140-148) mmol/L Potassium 3.8 (3.6-5.2) mmol/L Chloride 101 (100-108) mmol/L Carbon Dioxide 29 (21-32) mmol/L Anion Gap 11.8 (5.0-14.0) mmol/L BUN 22 H (7-18) mg/dL Creatinine 1.4 H (0.8-1.3) mg/dL Est Cr Clr Drug Dosing 69.90 mL/min Estimated GFR (MDRD) 56 L (>60) Glucose 168 H (74-106) mg/dL Calcium 8.7 (8.5-10.1) mg/dL Magnesium 1.7 L (1.8-2.4) mg/dL Med Orders - Current: Current Medications Acetaminophen (Tylenol) 650 mg PO Q4H PRN PRN Reason: Pain (Mild 1-3)/fever Albuterol (Proventil Neb Soln) 2.5 mg NEB Q4H PRN PRN Reason: Shortness Of Breath/wheezing Bumetanide (Bumex) 2 mg IVPUSH Q8H [facility] Last Admin: 12/11/17 05:53 Dose: 2 mg Dextrose (Glutose 15) 15 gm PO ONETIME PRN PRN Reason: Hypoglycemia Dextrose/Water (Dextrose 50% In Water) 50 ml IV ONETIME PRN PRN Reason: Hypoglycemia Enoxaparin Sodium (Lovenox) 40 mg SUBCUT Q24H [facility] Last Admin: 12/10/17 15:32 Dose: 40 mg Hydralazine HCl (Apresoline) 25 mg PO TID [facility] Last Admin: 12/11/17 08:33 Dose: 25 mg Magnesium Sulfate 2 gm/ Premix 50 mls @ 25 mls/hr IV ONETIME ONE Stop: 12/11/17 11:59 Last Admin: 12/11/17 09:30 Dose: 25 mls/hr Insulin Aspart (Novolog) 0 unit SUBCUT QIDACANDBED [facility]; Protocol Last Admin: 12/11/17 06:48 Dose: 1 units Liraglutide (Victoza) 1.8 mg SUBCUT DAILY [facility] Last Admin: 12/11/17 08:37 Dose: 1.8 units Magnesium Hydroxide (Milk Of Magnesia) 30 ml PO Q12H PRN PRN Reason: Constipation Magnesium Oxide (Magnesium Oxide) 400 mg PO BID [facility] Last Admin: 12/11/17 08:37 Dose: 400 mg Ondansetron HCl (Zofran) 4 mg IV Q4H PRN PRN Reason: Nausea/Vomiting Oxycodone HCl (Oxycodone) 5 mg PO Q4H PRN PRN Reason: Pain (moderate 4-6) Polyethylene Glycol (Miralax) 17 gm PO DAILY PRN PRN Reason: Constipation Last Admin: 12/11/17 09:20 Dose: 17 gm Senna/Docusate Sodium (Senna Plus) 1 tab PO BID PRN PRN Reason: Constipation Sodium Chloride (Saline Flush) 10 ml FLUSH ASDIRECTED PRN PRN Reason: Keep Vein Open Discontinued Medications Bumetanide (Bumex) 4 mg IVPUSH ONETIME ONE Stop: 12/09/17 15:01 Last Admin: 12/09/17 15:15 Dose: 4 mg Magnesium Sulfate 2 gm/ Premix 50 mls @ 25 mls/hr IV Q6H [facility] Stop: 12/10/17 16:59 Last Admin: 12/10/17 15:30 Dose: 25 mls/hr - Exam Quality Assessment: DVT Prophylaxis General: Alert, Oriented, Cooperative, No Acute Distress Lungs: Clear to Auscultation, Normal Respiratory Effort Cardiovascular: Regular Rate, No Murmurs, Tachycardia GI/Abdominal Exam: Soft, Non-Tender, No Organomegaly, No Distention Extremities: Non-Tender, Pedal Edema Skin: Warm, Dry - Problem List Review Problem List Initiated/Reviewed/Updated: Yes - My Orders Last 24 Hours: My Active Orders 12/10/17 09:31 Patient Status [ADT] Routine Cardiac Monitoring [RC] .As Directed 12/11/17 10:00 Magnesium Sulfate/Water [Magnesium Sulfate 2 GM in Water 50 ML] 2 gm Premix Bag 1 bag IV ONETIME 12/12/17 05:00 BASIC METABOLIC PANEL,BMP [CHEM] Timed MAGNESIUM [CHEM] Timed 12/12/17 07:30 GLUCOSE POC LAB TO COLLECT [POC] QIDACANDBED 12/12/17 08:00 Echo Comp wo Cont [US] Urgent 12/12/17 11:30 GLUCOSE POC LAB TO COLLECT [POC] QIDACANDBED 12/12/17 16:30 GLUCOSE POC LAB TO COLLECT [POC] QIDACANDBED 12/12/17 21:00 GLUCOSE POC LAB TO COLLECT [POC] QIDACANDBED 12/13/17 07:30 GLUCOSE POC LAB TO COLLECT [POC] QIDACANDBED 12/13/17 11:30 GLUCOSE POC LAB TO COLLECT [POC] QIDACANDBED 12/13/17 16:30 GLUCOSE POC LAB TO COLLECT [POC] QIDACANDBED 12/13/17 21:00 GLUCOSE POC LAB TO COLLECT [POC] QIDACANDBED 12/14/17 07:30 GLUCOSE POC LAB TO COLLECT [POC] QIDACANDBED 12/14/17 11:30 GLUCOSE POC LAB TO COLLECT [POC] QIDACANDBED - Plan Plan:: ASSESSMENT AND PLAN ANASARCA WITH PULMONARY EDEMA-significant improvement in shortness of breath since admission, continues to have marked peripheral and central edema. Good diuresis thus far on current therapy with Bumex -Bumex 2 mg IV every 8 hours -2 g sodium diet -echocardiogram tomorrow, to assess left ventricular function TYPE 2 DIABETES MELLITUS -Continue outpatient medications -4 times a day glucometers -low-dose sliding scale NovoLog HISTORY OF CARDIAC DISEASE -including history of ventricular dysrhythmias and aortic valve disease status post aortic valve replacement -continue outpatient medications CHRONIC KIDNEY DISEASE STAGE III -closely monitor urine output and renal function with diuresis MAINTENANCE ISSUES -DVT prophylaxis; Lovenox 40 mg subcutaneous daily -GI prophylaxis;Not indicated -Oakley catheter; not indicated -Nutrition; 2 g sodium, consistent carb diet -Nicotine dependence; not required CODE STATUS- FULL CODE ADMISSION STATUS-patient will be admitted to inpatient status, expect at least a 2 night hospital stay for evaluation and management of problems as outlined above. At the time of this admission I do not reasonably expected evaluation and management of this problem will require more than a 96 hour hospital stay. DISPOSITION-anticipate discharge to home after the hospital stay. PRIMARY CARE PROVIDER- he does not currently have a primary care provider
[2017-12-11] MEDS ORDERED: Warfarin 5 MG Tab PO SCH (14:00)
[2017-12-11] MEDS: Warfarin 2.5 MG, Warfarin 10 MG PO SCH ×2 (15:30)
[2017-12-11] MEDS: Enoxaparin 40 MG/0.4 ML Syringe SUBCUT SCH (15:43)
[2017-12-12] MEDS: Bumetanide 2.5 MG/10 ML MDV IVPUSH SCH ×3 (05:58→22:22)
[2017-12-12] MEDS: Insulin Aspart 100 Units/ML 3 ML Pen SUBCUT SCH ×4 (08:04→20:14)
[2017-12-12] MEDS: hydrALAZINE 25 MG Tab PO SCH ×3 (08:52→20:13)
[2017-12-12] MEDS: Magnesium Oxide 400 MG Tab PO SCH ×2 (08:52→20:13)
[2017-12-12] MEDS: Liraglutide (rDNA Origin) 0.6 MG/0.1 ML 3 ML Pen SUBCUT SCH (08:53)
--- NOTE | 2017-12-12 10:09 | PCM.PN ---
- General Info Date of Service: 12/12/17 Functional Status: Reports: Pain Controlled, Tolerating Diet - Review of Systems Pulmonary: Denies: Shortness of Breath Cardiovascular: Reports: Edema Systems Review Comment:: There were no acute events overnight. The patient has had continued improvement in his lower extremity edema and shortness of breath with diuresis. His swelling has improved significantly and now includes mostly his legs below the knee. He has been up and walking around with improved shortness of breath. He has not needed supplemental oxygen. He has continued to be tachycardic. Echocardiogram was not available today. Appetite has been good. Diabetes control has been suboptimal. - Patient Data Vitals - Most Recent: Last Vital Signs Temp 35.4 C 12/12/17 08:08 Pulse 110 H 12/12/17 08:08 Resp 16 12/12/17 08:08 BP 180/88 H 12/12/17 08:52 Pulse Ox 91 L 12/12/17 08:08 Weight - Most Recent: 143.381 kg I&O - Last 24 Hours: Intake & Output 12/11/17 12/12/17 12/12/17 22:59 06:59 14:59 Intake Total 920 360 Output Total 1000 725 500 Balance -80 -725 -140 Lab Results Last 24 Hours: Laboratory Results - last 24 hr 12/12/17 12/12/17 Range/Units 05:50 05:50 PT 12.2 H (9.5-12.0) sec INR 1.13 (0.80-1.20) Sodium 136 L (140-148) mmol/L Potassium 4.3 (3.6-5.2) mmol/L Chloride 97 L (100-108) mmol/L Carbon Dioxide 32 (21-32) mmol/L Anion Gap 11.3 (5.0-14.0) mmol/L BUN 24 H (7-18) mg/dL Creatinine 1.4 H (0.8-1.3) mg/dL Est Cr Clr Drug Dosing 69.90 mL/min Estimated GFR (MDRD) 56 L (>60) Glucose 170 H (74-106) mg/dL Calcium 8.8 (8.5-10.1) mg/dL Magnesium 1.7 L (1.8-2.4) mg/dL Med Orders - Current: Current Medications Acetaminophen (Tylenol) 650 mg PO Q4H PRN PRN Reason: Pain (Mild 1-3)/fever Albuterol (Proventil Neb Soln) 2.5 mg NEB Q4H PRN PRN Reason: Shortness Of Breath/wheezing Bumetanide (Bumex) 2 mg IVPUSH Q8H [facility] Last Admin: 12/12/17 05:58 Dose: 2 mg Dextrose (Glutose 15) 15 gm PO ONETIME PRN PRN Reason: Hypoglycemia Dextrose/Water (Dextrose 50% In Water) 50 ml IV ONETIME PRN PRN Reason: Hypoglycemia Enoxaparin Sodium (Lovenox) 40 mg SUBCUT Q24H [facility] Last Admin: 12/11/17 15:43 Dose: 40 mg Hydralazine HCl (Apresoline) 25 mg PO TID [facility] Last Admin: 12/12/17 08:52 Dose: 25 mg Insulin Aspart (Novolog) 0 unit SUBCUT QIDACANDBED [facility]; Protocol Last Admin: 12/12/17 08:04 Dose: 1 units Liraglutide (Victoza) 1.8 mg SUBCUT DAILY [facility] Last Admin: 12/12/17 08:53 Dose: 1.8 units Magnesium Hydroxide (Milk Of Magnesia) 30 ml PO Q12H PRN PRN Reason: Constipation Magnesium Oxide (Magnesium Oxide) 400 mg PO BID [facility] Last Admin: 12/12/17 08:52 Dose: 400 mg Ondansetron HCl (Zofran) 4 mg IV Q4H PRN PRN Reason: Nausea/Vomiting Oxycodone HCl (Oxycodone) 5 mg PO Q4H PRN PRN Reason: Pain (moderate 4-6) Polyethylene Glycol (Miralax) 17 gm PO DAILY PRN PRN Reason: Constipation Last Admin: 12/11/17 09:20 Dose: 17 gm Senna/Docusate Sodium (Senna Plus) 1 tab PO BID PRN PRN Reason: Constipation Sodium Chloride (Saline Flush) 10 ml FLUSH ASDIRECTED PRN PRN Reason: Keep Vein Open Warfarin Sodium 2.5 mg/ (Warfarin Sodium 10 mg) 12.5 mg PO DAILY@1300 [facility] Last Admin: 12/11/17 15:30 Dose: 12.5 mg Discontinued Medications Bumetanide (Bumex) 4 mg IVPUSH ONETIME ONE Stop: 12/09/17 15:01 Last Admin: 12/09/17 15:15 Dose: 4 mg Magnesium Sulfate 2 gm/ Premix 50 mls @ 25 mls/hr IV Q6H [facility] Stop: 12/10/17 16:59 Last Admin: 12/10/17 15:30 Dose: 25 mls/hr Magnesium Sulfate 2 gm/ Premix 50 mls @ 25 mls/hr IV ONETIME ONE Stop: 12/11/17 11:59 Last Admin: 12/11/17 09:30 Dose: 25 mls/hr - Exam Quality Assessment: No: Supplemental Oxygen General: Alert, Oriented, Cooperative, No Acute Distress Neck: Supple Lungs: Clear to Auscultation, Normal Respiratory Effort Cardiovascular: Regular Rhythm, Tachycardia GI/Abdominal Exam: Soft, No Distention Extremities: Pedal Edema (bilateral to the knee). No: Increased Warmth Psy/Mental Status: Alert, Normal Affect - Problem List Review Problem List Initiated/Reviewed/Updated: Yes - My Orders Last 24 Hours: My Active Orders 12/12/17 10:15 Metoprolol Succinate [Toprol XL] 100 mg PO DAILY 12/13/17 05:00 BASIC METABOLIC PANEL,BMP [CHEM] Timed CBC W/O DIFF,HEMOGRAM [HEME] Timed (1) INR,PT,PROTHROMBIN TIME [COAG] Timed 12/13/17 07:00 Echo Comp wo Cont [US] Routine - Plan Plan:: ASSESSMENT AND PLAN CONGESTIVE HEART FAILURE WITH ANASARCA AND PULMONARY EDEMA - ongoing clinical improvement with IV diuresis. Still has a fair amount of fluid to remove but has improved significantly since admission. Ejection fraction unknown at this time. He does have a history of aortic valve replacement. -Bumetanide 2 mg IV every 8 hours -2 g sodium diet -Restart metoprolol succinate -Consider KEON inhibitor (patient very hesitant to start new medications, will need ongoing discussions about potential benefits) -echocardiogram tomorrow, to assess left ventricular function TYPE 2 DIABETES MELLITUS - suboptimal control. Multiple different medications have been trialed as an outpatient. Compliance is a concern. -Continue outpatient medications -4 times a day glucometers -low-dose sliding scale NovoLog HISTORY OF CARDIAC DISEASE - including history of ventricular dysrhythmias and aortic valve disease status post aortic valve replacement. No significant dysrhythmias during the hospital stay. -continue outpatient medications CHRONIC KIDNEY DISEASE STAGE III - kidney function stable with diuresis so far. -closely monitor urine output and renal function with diuresis MAINTENANCE ISSUES -DVT prophylaxis; enoxaparin 40 mg subcutaneous daily -GI prophylaxis; Not indicated -Oakley catheter; not indicated -Nutrition; 2 g sodium, consistent carb diet ADMISSION STATUS-patient will be admitted to inpatient status, expect at least a 2 night hospital stay for evaluation and management of problems as outlined above. At the time of this admission I do not reasonably expected evaluation and management of this problem will require more than a 96 hour hospital stay. DISPOSITION - anticipate discharge to home after the hospital stay. Wilfredo Verdin M.D.
[2017-12-12] MEDS: Metoprolol Succinate 50 MG Tab.ER PO SCH (10:32)
[2017-12-12] MEDS: Warfarin 2.5 MG, Warfarin 10 MG PO SCH ×2 (14:44)
[2017-12-12] MEDS: Enoxaparin 40 MG/0.4 ML Syringe SUBCUT SCH (17:15)
[2017-12-13] MEDS: Bumetanide 2.5 MG/10 ML MDV IVPUSH SCH (05:26)
[2017-12-13] MEDS: Insulin Aspart 100 Units/ML 3 ML Pen SUBCUT SCH (09:01)
[2017-12-13] MEDS: Metoprolol Succinate 50 MG Tab.ER PO SCH (09:02)
[2017-12-13] MEDS: Magnesium Oxide 400 MG Tab PO SCH (09:02)
[2017-12-13] MEDS: hydrALAZINE 25 MG Tab PO SCH (09:03)
[2017-12-13] MEDS: Liraglutide (rDNA Origin) 0.6 MG/0.1 ML 3 ML Pen SUBCUT SCH (09:04)
[2017-12-13 09:05] VITALS: BP 154/86
--- NOTE | 2017-12-13 10:13 | PCM.DCSUM1 ---
Discharge Summary - Hospital Course Brief History: 42-year-old male with systolic congestive heart failure, previous aortic valve replacement, stage III kidney disease and morbid obesity who presented with a 30 pound weight gain and shortness of breath. He was admitted for management of acute on chronic congestive heart failure. - Discharge Data Discharge Date: 12/13/17 Discharge Disposition: Home, Self-Care 01 Condition: Good - Discharge Diagnosis/Problem(s) (1) Acute on chronic systolic CHF (congestive heart failure), NYHA class 2 SNOMED Code(s): 954180662, 756077479, 057598605 ICD Code: I50.23 - ACUTE ON CHRONIC SYSTOLIC (CONGESTIVE) HEART FAILURE Status: Acute (2) CKD (chronic kidney disease), stage III SNOMED Code(s): 789416378 ICD Code: N18.3 - CHRONIC KIDNEY DISEASE, STAGE 3 (MODERATE) Status: Chronic (3) Morbid obesity with BMI of 45.0-49.9, adult SNOMED Code(s): 447314981 ICD Code: E66.01 - MORBID (SEVERE) OBESITY DUE TO EXCESS CALORIES; Z68.42 - BODY MASS INDEX (BMI) 45.0-49.9, ADULT Status: Chronic (4) History of mechanical aortic valve replacement SNOMED Code(s): 374793533, 45239243, 610648308, 285243843, 002995801, 925036451 ICD Code: Z95.2 - PRESENCE OF PROSTHETIC HEART VALVE Status: Chronic (5) Diabetes mellitus type 2 with complications, uncontrolled SNOMED Code(s): 155769231, 822217887 ICD Code: E11.8 - TYPE 2 DIABETES MELLITUS WITH UNSPECIFIED COMPLICATIONS; E11.65 - TYPE 2 DIABETES MELLITUS WITH HYPERGLYCEMIA Status: Chronic Priority: High Qualifiers: Diabetes mellitus shelter insulin use: with shelter use Qualified Code( s): E11.8 - Type 2 diabetes mellitus with unspecified complications; E11.65 - Type 2 diabetes mellitus with hyperglycemia; Z79.4 - technician terminal and repeater (current) use of insulin - Patient Summary/Data Hospital Course: Naresh presented to the clinic with a 30 pound weight gain and progressive shortness of breath and paroxysmal nocturnal dyspnea. He was admitted to the hospital as a direct admission for management of presumed congestive heart failure after workup was suggestive of pulmonary edema and anasarca. He was started on IV bumetanide with dosing provided every 8 hours. At the time of admission his creatinine was near baseline with a creatinine of 1.4. Over the next several days he received IV diuresis with a good response. We have been able to remove more than 20 pounds of the fluid that he has retained. His kidney function has remained stable throughout the course of the hospital stay. His blood pressure has been moderately elevated but after it was discovered that he was supposed to be on long-acting metoprolol we have seen improvements in his heart rate and blood pressure. Prior to starting the beta terri he was mildly tachycardic. On the day of discharge we were able to discontinue IV diuresis with a slight increase in his creatinine. On the day of discharge we are also able to obtain a follow-up echocardiogram. This was similar to the one obtained several months ago and showed a reduced ejection fraction at approximately 30-35%. Septal and anterior wall motion abnormalities were noted and these were similar to previous. He has mild to moderate aortic insufficiency as well as mild to moderate mitral regurgitation. He has been up and walking around with no shortness of breath. He has not been experiencing orthopnea. His edema has essentially resolved. We have elected to utilize bumetanide for outpatient diuresis and he will be discharged with 2 mg to be taken twice daily. He does have a scale at home and will be monitoring his weight daily. He will continue his previous medical management. An KEON inhibitor was not prescribed because of previous difficulties with acute kidney injury well on an KEON inhibitor. I did recommend a Coumadin clinic visit later this week as well as early clinic follow-up to ensure that he continues to do well after hospital discharge. - Patient Instructions Diet: Low Sodium Activity: As Tolerated Showering/Bathing: May Shower Notify Provider of: Fever, Increased Pain, Nausea and/or Vomiting Other/Special Instructions: 1. You were in the hospital for management of acute systolic congestive heart failure. Your weight and edema have been improving with IV diuresis. We are transitioning you to oral medications. I would recommend that you stop taking the furosemide (Lasix) and start taking bumetanide (Bumex) 2 mg twice daily. You should take this medication in the morning and afternoon. Please continue to check your weight daily. If you notice an increase in your weight of 2 pounds or more you should take an extra dose of bumetanide. If the weight gain continues you should seek medical attention in the clinic or emergency room. 2. Follow-up with Dr Minor in the next week to recheck your weight and reassess your heart failure symptoms. 3. Continue to take your warfarin as previously prescribed at 12.5 mg daily. You should follow-up with the Coumadin clinic in the next week. 4. Please seek medical attention if you develop fever greater than 101, have sudden onset of shortness of breath or if you develop chest pain/pressure. - Discharge Plan Prescriptions/Med Rec: Bumetanide 2 mg PO BID #60 tablet Metoprolol Succinate 100 mg PO BID #60 tab.er.24h Home Medications: Home Meds Warfarin [Coumadin] 12.5 mg PO DAILY 12/08/13 [History] Liraglutide [Victoza] 1.8 units SQ DAILY 03/20/17 [History] hydrALAZINE [Apresoline] 25 mg PO TID 10/06/17 [History] Bumetanide 2 mg PO BID #60 tablet 12/13/17 [Rx] Metoprolol Succinate 100 mg PO BID #60 tab.er.24h 12/13/17 [Rx] Patient Handouts: Bumetanide tablets, Heart Failure, [id number] Referrals: Denisse Minor MD [Physician] - (1 week - f/u hospital stay for CHF, CKD) - Discharge Summary/Plan Comment DC Time >30 min.: Yes (45 - extensive counseling and coordinating f/u ) - Patient Data Vitals - Most Recent: Last Vital Signs Temp 36.3 C 12/13/17 07:00 Pulse 90 12/13/17 09:02 Resp 16 12/13/17 07:00 BP 154/86 H 12/13/17 09:02 Pulse Ox 99 12/13/17 07:00 Weight - Most Recent: 140.387 kg I&O - Last 24 hours: Intake & Output 12/12/17 12/13/17 12/13/17 22:59 06:59 14:59 Intake Total 960 Output Total 1999 1300 Balance -[id number] Lab Results - Last 24 hrs: Laboratory Results - last 24 hr 12/13/17 12/13/17 12/13/17 Range/Units 05:00 05:00 05:00 WBC 5.1 (4.5-11.0) K/uL RBC 4.22 L (4.30-5.90) M/uL Hgb 9.6 L (12.0-15.0) g/dL Hct 32.8 L (40.0-54.0) % MCV 78 L (80-98) fL MCH 23 L (27-31) pg MCHC 29 L (32-36) % Plt Count 302 (150-400) K/uL PT 13.3 H (9.5-12.0) sec INR 1.23 H (0.80-1.20) Sodium 136 L (140-148) mmol/L Potassium 4.4 (3.6-5.2) mmol/L Chloride 97 L (100-108) mmol/L Carbon Dioxide 35 H (21-32) mmol/L Anion Gap 8.4 (5.0-14.0) mmol/L BUN 26 H (7-18) mg/dL Creatinine 1.6 H (0.8-1.3) mg/dL Est Cr Clr Drug Dosing 61.17 mL/min Estimated GFR (MDRD) 48 L (>60) Glucose 181 H (74-106) mg/dL Calcium 8.9 (8.5-10.1) mg/dL Med Orders - Current: Current Medications Acetaminophen (Tylenol) 650 mg PO Q4H PRN PRN Reason: Pain (Mild 1-3)/fever Albuterol (Proventil Neb Soln) 2.5 mg NEB Q4H PRN PRN Reason: Shortness Of Breath/wheezing Bumetanide (Bumex) 2 mg IVPUSH Q8H [facility] Last Admin: 12/13/17 05:26 Dose: 2 mg Dextrose (Glutose 15) 15 gm PO ONETIME PRN PRN Reason: Hypoglycemia Dextrose/Water (Dextrose 50% In Water) 50 ml IV ONETIME PRN PRN Reason: Hypoglycemia Enoxaparin Sodium (Lovenox) 40 mg SUBCUT Q24H [facility] Last Admin: 12/12/17 17:15 Dose: 40 mg Hydralazine HCl (Apresoline) 25 mg PO TID [facility] Last Admin: 12/13/17 09:03 Dose: 25 mg Insulin Aspart (Novolog) 0 unit SUBCUT QIDACANDBED [facility]; Protocol Last Admin: 12/13/17 09:01 Dose: 2 units Liraglutide (Victoza) 1.8 mg SUBCUT DAILY [facility] Last Admin: 12/13/17 09:04 Dose: 1.8 units Magnesium Hydroxide (Milk Of Magnesia) 30 ml PO Q12H PRN PRN Reason: Constipation Magnesium Oxide (Magnesium Oxide) 400 mg PO BID [facility] Last Admin: 12/13/17 09:02 Dose: 400 mg Metoprolol Succinate (Toprol Xl) 100 mg PO DAILY [facility] Last Admin: 12/13/17 09:02 Dose: 100 mg Ondansetron HCl (Zofran) 4 mg IV Q4H PRN PRN Reason: Nausea/Vomiting Oxycodone HCl (Oxycodone) 5 mg PO Q4H PRN PRN Reason: Pain (moderate 4-6) Polyethylene Glycol (Miralax) 17 gm PO DAILY PRN PRN Reason: Constipation Last Admin: 12/11/17 09:20 Dose: 17 gm Senna/Docusate Sodium (Senna Plus) 1 tab PO BID PRN PRN Reason: Constipation Sodium Chloride (Saline Flush) 10 ml FLUSH ASDIRECTED PRN PRN Reason: Keep Vein Open Warfarin Sodium 2.5 mg/ (Warfarin Sodium 10 mg) 12.5 mg PO DAILY@1300 [facility] Last Admin: 12/12/17 14:44 Dose: 12.5 mg Discontinued Medications Bumetanide (Bumex) 4 mg IVPUSH ONETIME ONE Stop: 12/09/17 15:01 Last Admin: 12/09/17 15:15 Dose: 4 mg Magnesium Sulfate 2 gm/ Premix 50 mls @ 25 mls/hr IV Q6H [facility] Stop: 12/10/17 16:59 Last Admin: 12/10/17 15:30 Dose: 25 mls/hr Magnesium Sulfate 2 gm/ Premix 50 mls @ 25 mls/hr IV ONETIME ONE Stop: 12/11/17 11:59 Last Admin: 12/11/17 09:30 Dose: 25 mls/hr - Exam Quality Assessment: Denies: Supplemental Oxygen General: Reports: Alert, Oriented, Cooperative, No Acute Distress Neck: Reports: Supple Lungs: Reports: Normal Respiratory Effort Cardiovascular: Reports: Regular Rate, Regular Rhythm GI/Abdominal Exam: No Distention Extremities: Pedal Edema Psy/Mental Status: Reports: Alert, Normal Affect
== END 2017-12-13 11:52 | disposition home or self-care (01) | DRG 292 ==
LOC: JP.ICU 11:49
PROVIDERS: ADMIT Hospitalist; ATTEND Hospitalist
DX: I50.23 Acute on chronic systolic (congestive) heart failure (principal); I13.0 Hypertensive heart and chronic kidney disease with heart failure and stage 1 through stage 4 chronic kidney disease, or unspecified chronic kidney disease; Z68.42 Body mass index [BMI] 45.0-49.9, adult; E11.22 Type 2 diabetes mellitus with diabetic chronic kidney disease; E11.65 Type 2 diabetes mellitus with hyperglycemia; N18.3 Chronic kidney disease, stage 3 (moderate); Z95.2 Presence of prosthetic heart valve; E66.01 Morbid (severe) obesity due to excess calories; Z79.4 Long term (current) use of insulin; Z88.8 Allergy status to other drugs, medicaments and biological substances; Z79.899 Other long term (current) drug therapy; Z79.01 Long term (current) use of anticoagulants; E78.00 Pure hypercholesterolemia, unspecified; Z89.421 Acquired absence of other right toe(s); Z89.411 Acquired absence of right great toe; F98.8 Other specified behavioral and emotional disorders with onset usually occurring in childhood and adolescence; F17.200 Nicotine dependence, unspecified, uncomplicated
CPT/HCPCS: 36415; 80048; 80053; 82962; 83735; 85025; 85027; 85610; 93306; A9270-GY; J1650; J3475; S0171

== ENCOUNTER 2017-12-22 23:56 | Emergency (ER) | payer MEDICAID ==
[2017-12-23] MEDS ORDERED: Ondansetron 4 MG Tab.DIS PO ONE (00:36)
[2017-12-23] MEDS ORDERED: Ondansetron 4 MG Tab.DIS ONE (00:53)
--- NOTE | 2017-12-23 01:57 | EDM.PDOC ---
ED HPI GENERAL MEDICAL PROBLEM - General Chief Complaint: Genitourinary Problem Stated Complaint: R FOOT PAIN / VOMITING Time Seen by Provider: 12/23/17 00:15 Source of Information: Reports: Patient History Limitations: Reports: No Limitations - History of Present Illness INITIAL COMMENTS - FREE TEXT/NARRATIVE: This patient is here because of worries that he might be septic. 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 Has a history of MRSA and type 2 diabetes congestive heart failure mechanical heart valve and other problems. Tonight for a while he felt hot and he vomited just right before he came in. He had talked with Dr. Johnson earlier in the day and apparently was told if he had any problems then he should come to the emergency department. He denies any fever or chills although he felt hot this before he vomited there's been no diarrhea he's not having any complaints of redness swelling or drainage to the lower extremities Middle Abdomen Pain Score (Numeric/FACES): 5 - Related Data Allergies Allergy/AdvReac Type Severity Reaction Status Date / Time metformin Allergy Indigestion Verified 10/01/17 17:15 vancomycin Allergy Other Verified 10/05/17 13:31 Home Meds: Home Meds Warfarin [Coumadin] 12.5 mg PO DAILY 12/08/13 [History] Liraglutide [Victoza] 1.8 units SQ DAILY 03/20/17 [History] hydrALAZINE [Apresoline] 25 mg PO TID 10/06/17 [History] Bumetanide 2 mg PO BID #60 tablet 12/13/17 [Rx] Metoprolol Succinate 100 mg PO BID #60 tab.er.24h 12/13/17 [Rx] Past Medical History - Past Health History Medical/Surgical History: Denies Medical/Surgical History HEENT History: Reports: Epistaxis, Hard of Hearing Cardiovascular History: Reports: Heart Murmur, High Cholesterol, Hypertension, Other (See Below) Other Cardiovascular History: 2013 aortic valve replacement Respiratory History: Reports: SOB Gastrointestinal History: Reports: Other (See Below) Other Gastrointestinal History: acid reflux Genitourinary History: Reports: Chronic Renal Insuffiency, Other (See Below) Other Genitourinary History: dialysis [facility] no longer using dialysis since. Musculoskeletal History: Reports: Other (See Below) Other Musculoskeletal History: amputations 5 toes R foot 2/17 Skin grafts 06/17 on toes. Neurological History: Reports: None Psychiatric History: Reports: ADD Endocrine/Metabolic History: Reports: Diabetes, Type II, IDDM, Obesity/BMI 30+ Hematologic History: Reports: Anemia Immunologic History: Reports: Other (See Below) Other Immunologic History: MRSA hx pacer site and chest incision Oncologic (Cancer) History: Reports: None Dermatologic History: Reports: Other (See Below) Other Dermatologic History: right foot ulcer - Infectious Disease History Infectious Disease History: Reports: Chicken Pox - Past Surgical History HEENT Surgical History: Reports: Cataract Surgery Cardiovascular Surgical History: Reports: Pacer, Valve Replacement Musculoskeletal Surgical History: Reports: Other (See Below) Other Musculoskeletal Surgeries/Procedures:: amb partial right foot Social & Family History - Tobacco Use Smoking Status *Q: Current Some Day Smoker Years of Tobacco use: 25 Packs/Tins Daily: 0.5 Used Tobacco, but Quit: No Second Hand Smoke Exposure: Yes - Caffeine Use Caffeine Use: Reports: Coffee, Soda, Tea - Alcohol Use Days Per Week of Alcohol Use: 0 - Recreational Drug Use Recreational Drug Use: Yes Drug Use in Last 12 Months: Yes Recreational Drug Type: Reports: Marijuana/Hashish Other Recreational Drug Type: Used Marijuana 2 weeks ago Recreational Drug Use Frequency: Rarely - Living Situation & Occupation Living situation: Reports: with Significant Other (lives with SO Heidi of five years in [place], [place].) Occupation: Employed ED ROS GENERAL - Review of Systems Review Of Systems: See Below Constitutional: Reports: Fever ([place] hot) HEENT: Reports: No Symptoms Respiratory: Reports: No Symptoms Cardiovascular: Reports: No Symptoms Endocrine: Reports: No Symptoms GI/Abdominal: Reports: Vomiting : Reports: No Symptoms Skin: Reports: No Symptoms Neurological: Reports: No Symptoms Psychiatric: Reports: No Symptoms ED EXAM, GI/ABD - Physical Exam Exam: See Below Exam Limited By: No Limitations General Appearance: Alert, Obese (Chronically ill appearing) Eyes: Bilateral: Normal Appearance, EOMI Ears: Normal External Exam Nose: Normal Inspection Throat/Mouth: Normal Inspection Head: Atraumatic Neck: Normal Inspection Respiratory/Chest: Lungs Clear Cardiovascular: Regular Rate, Rhythm (Mechanical heart sounds) GI/Abdominal Exam: Soft, Other (May be very slight epigastric tenderness) Extremities: Other (He's had amputations of all the toes of the right foot sock was removed there is no evidence of infection there and also check the left lower leg 2 evidence no evidence of infection) Neurological: Alert, Oriented Psychiatric: Normal Affect Course - Vital Signs Last Recorded V/S: Last Vital Signs Temp 36.9 C 12/23/17 00:06 Pulse 118 H 12/23/17 00:06 Resp 18 12/23/17 00:06 BP 156/90 H 12/23/17 02:04 Pulse Ox 99 12/23/17 00:06 - Orders/Labs/Meds Orders: Active Orders 24 hr Category Date Time Status EKG Documentation Completion [RC] ASDIRECTED Care 12/23/17 00:36 Active EKG 12 Lead [EK] Urgent Ther 12/23/17 00:36 Ordered Labs: Laboratory Tests 12/23/17 12/23/17 12/23/17 Range/Units 00:44 00:44 00:44 WBC 7.5 (4.5-11.0) K/uL RBC 4.15 L (4.30-5.90) M/uL Hgb 9.6 L (12.0-15.0) g/dL Hct 31.9 L (40.0-54.0) % MCV 77 L (80-98) fL MCH 23 L (27-31) pg MCHC 30 L (32-36) % Plt Count 338 (150-400) K/uL Neut % (Auto) 79 H (36-66) % Lymph % (Auto) 11 L (24-44) % Rains % (Auto) 9 H (2-6) % Eos % (Auto) 1 L (2-4) % Baso % (Auto) 0 (0-1) % Sodium (140-148) mmol/L Potassium (3.6-5.2) mmol/L Chloride (100-108) mmol/L Carbon Dioxide (21-32) mmol/L Anion Gap (5.0-14.0) mmol/L BUN (7-18) mg/dL Creatinine (0.8-1.3) mg/dL Est Cr Clr Drug Dosing mL/min Estimated GFR (MDRD) (>60) Glucose (74-106) mg/dL Lactic Acid 1.4 (0.4-2.0) mmol/L Calcium (8.5-10.1) mg/dL Total Bilirubin (0.2-1.0) mg/dL AST (15-37) U/L ALT (12-78) U/L Alkaline Phosphatase (46-116) U/L Troponin I (0.000-0.056) ng/mL C-Reactive Protein 8.06 H (0.0-0.3) mg/dL Total Protein (6.4-8.2) g/dL Albumin (3.4-5.0) g/dL Globulin (2.3-3.5) g/dL Albumin/Globulin Ratio (1.2-2.2) Amylase 52 (25-115) U/L Lipase 956 H (73-393) U/L 12/23/17 12/23/17 Range/Units 00:44 00:50 WBC (4.5-11.0) K/uL RBC (4.30-5.90) M/uL Hgb (12.0-15.0) g/dL Hct (40.0-54.0) % MCV (80-98) fL MCH (27-31) pg MCHC (32-36) % Plt Count (150-400) K/uL Neut % (Auto) (36-66) % Lymph % (Auto) (24-44) % Rains % (Auto) (2-6) % Eos % (Auto) (2-4) % Baso % (Auto) (0-1) % Sodium 134 L (140-148) mmol/L Potassium 4.4 (3.6-5.2) mmol/L Chloride 98 L (100-108) mmol/L Carbon Dioxide 27 (21-32) mmol/L Anion Gap 13.4 (5.0-14.0) mmol/L BUN 26 H (7-18) mg/dL Creatinine 1.5 H (0.8-1.3) mg/dL Est Cr Clr Drug Dosing 67.59 mL/min Estimated GFR (MDRD) 52 L (>60) Glucose 273 H (74-106) mg/dL Lactic Acid (0.4-2.0) mmol/L Calcium 8.7 (8.5-10.1) mg/dL Total Bilirubin 1.3 H (0.2-1.0) mg/dL AST 25 (15-37) U/L ALT 24 (12-78) U/L Alkaline Phosphatase 185 H (46-116) U/L Troponin I 0.031 (0.000-0.056) ng/mL C-Reactive Protein (0.0-0.3) mg/dL Total Protein 7.7 (6.4-8.2) g/dL Albumin 2.4 L (3.4-5.0) g/dL Globulin 5.3 H (2.3-3.5) g/dL Albumin/Globulin Ratio 0.5 L (1.2-2.2) Amylase (25-115) U/L Lipase (73-393) U/L Meds: Medications Discontinued Medications Generic Name Dose Route Start Last Admin Trade Name Freq PRN Reason Stop Dose Admin Ondansetron HCl 8 mg 12/23/17 00:36 12/23/17 00:50 Zofran Odt PO 12/23/17 00:37 8 mg ONETIME ONE Administration Ondansetron HCl Confirm 12/23/17 00:53 Zofran Odt Administered 12/23/17 00:54 Dose 4 mg .ROUTE .STK-MED ONE - Re-Assessments/Exams Free Text/Narrative Re-Assessment/Exam: 12/23/17 06:26 An EKG was done which shows greater than normal voltage in the anterior leads V2 particularly and there is a large spiked T-wave however judging from the overall voltage I don't think it is current of injury. There is some evidence of a inferior IL also. This was compared to an old EKG from his hospital record which also shows history of these MIs in their term recent also on today's EKG I don't see anything that looks like an acute IL Free Text/Narrative Re-Assessment/Exam: 12/23/17 06:28 Labs were done and there is nothing that would indicate sepsis. I did see that his lipase is elevated and the possibility of pancreatitis was discussed with the patient Departure - Departure Time of Disposition: 01:54 Disposition: Home, Self-Care 01 Condition: Fair Clinical Impression: Vomiting - Discharge Information Instructions: Nausea and Vomiting, Adult Referrals: PCP,None [Primary Care Provider] - Forms: ED Department Discharge Additional Instructions: None of your labs gave any indication of sepsis. One lab test, lipase, was elevated and this could signal the start of some pancreatitis. Pancreatitis is treated just by putting you on a clear liquid diet and give you pain medications so for the next 24 hours the best thing would be just put herself on a clear liquid diet. Be sure to take your heart medicines as soon as you get home. Follow-up with your doctor as needed or return to the ER - My Orders Last 24 Hours: My Active Orders 12/23/17 00:36 EKG Documentation Completion [RC] ASDIRECTED EKG 12 Lead [EK] Urgent - Assessment/Plan Last 24 Hours: My Active Orders 12/23/17 00:36 EKG Documentation Completion [RC] ASDIRECTED EKG 12 Lead [EK] Urgent
[2017-12-23 02:05] VITALS: BP 156/90
== END 2017-12-23 02:04 | disposition home or self-care (01) ==
LOC: JP.ED 23:56
DX: R11.10 Vomiting, unspecified (principal); E11.9 Type 2 diabetes mellitus without complications; I11.0 Hypertensive heart disease with heart failure; I50.9 Heart failure, unspecified; E66.9 Obesity, unspecified; F17.210 Nicotine dependence, cigarettes, uncomplicated; Z88.1 Allergy status to other antibiotic agents; Z88.8 Allergy status to other drugs, medicaments and biological substances; Z79.01 Long term (current) use of anticoagulants; E78.00 Pure hypercholesterolemia, unspecified
CPT/HCPCS: 36415; 80053; 82150; 83605; 83690; 84484; 85025; 86140; 93005; 99284; A9270

== ENCOUNTER 2017-12-27 15:48 | Inpatient (IN) | payer MEDICAID ==
[2017-12-27] MEDS ORDERED: Ondansetron 4 MG/2 ML SDV IVPUSH ONE (16:42)
[2017-12-27] MEDS ORDERED: Sodium Chloride 0.9% 1,000 ML IV SCH ×2 (16:45→18:15)
--- NOTE | 2017-12-27 16:48 | EDM.PDOC ---
ED HPI GENERAL MEDICAL PROBLEM - General Chief Complaint: Gastrointestinal Problem Stated Complaint: NAUSEA / VOMITING Time Seen by Provider: 12/27/17 16:46 Source of Information: Reports: Patient History Limitations: Reports: No Limitations - History of Present Illness INITIAL COMMENTS - FREE TEXT/NARRATIVE: pt has not been keeping anything down for the past 2weeks. He will have 1 large stool per day. Onset: Gradual, Other ( sveral days. ) Duration: Day(s): Location: Reports: Other ( Pt is dehydration) Associated Symptoms: Reports: Diaphoresis, Fever/Chills, Nausea/Vomiting, Weakness - Related Data Allergies Allergy/AdvReac Type Severity Reaction Status Date / Time metformin Allergy Indigestion Verified 12/27/17 16:21 vancomycin Allergy Other Verified 12/27/17 16:21 Home Meds: Home Meds Warfarin [Coumadin] 12.5 mg PO DAILY 12/08/13 [History] Liraglutide [Victoza] 1.8 units SQ DAILY 03/20/17 [History] hydrALAZINE [Apresoline] 25 mg PO TID 10/06/17 [History] Bumetanide 2 mg PO BID #60 tablet 12/13/17 [Rx] Metoprolol Succinate 100 mg PO BID #60 tab.er.24h 12/13/17 [Rx] Insulin Glargine,Hum.Rec.Anlog [Toujeo Solostar] 22 unit SQ BEDTIME 12/27/17 [ History] Past Medical History - Past Health History Medical/Surgical History: Denies Medical/Surgical History HEENT History: Reports: Epistaxis, Hard of Hearing Cardiovascular History: Reports: Heart Murmur, High Cholesterol, Hypertension, Other (See Below) Other Cardiovascular History: 2013 aortic valve replacement Respiratory History: Reports: SOB Gastrointestinal History: Reports: Other (See Below) Other Gastrointestinal History: acid reflux Genitourinary History: Reports: Chronic Renal Insuffiency, Other (See Below) Other Genitourinary History: dialysis [facility] no longer using dialysis since. Musculoskeletal History: Reports: Other (See Below) Other Musculoskeletal History: amputations 5 toes R foot 10/08 Skin grafts 06/17 on toes. Neurological History: Reports: None Psychiatric History: Reports: ADD Endocrine/Metabolic History: Reports: Diabetes, Type II, IDDM, Obesity/BMI 30+ Hematologic History: Reports: Anemia Immunologic History: Reports: Other (See Below) Other Immunologic History: MRSA hx pacer site and chest incision Oncologic (Cancer) History: Reports: None Dermatologic History: Reports: Other (See Below) Other Dermatologic History: right foot ulcer - Infectious Disease History Infectious Disease History: Reports: MRSA - Past Surgical History HEENT Surgical History: Reports: Cataract Surgery Cardiovascular Surgical History: Reports: Pacer, Valve Replacement Musculoskeletal Surgical History: Reports: Other (See Below) Other Musculoskeletal Surgeries/Procedures:: amb partial right foot Social & Family History - Tobacco Use Smoking Status *Q: Unknown Ever Smoked - Caffeine Use Caffeine Use: Reports: Coffee, Soda, Tea - Living Situation & Occupation Living situation: Reports: with Significant Other (lives with SO Heidi of five years in [place], [place].) Occupation: Employed ED ROS GENERAL - Review of Systems Review Of Systems: See Below Constitutional: Reports: Fever, Chills, Malaise HEENT: Reports: No Symptoms Respiratory: Reports: No Symptoms Cardiovascular: Reports: No Symptoms Endocrine: Reports: No Symptoms GI/Abdominal: Reports: No Symptoms, Nausea, Vomiting : Reports: No Symptoms Musculoskeletal: Reports: No Symptoms Skin: Reports: No Symptoms ED EXAM, GI/ABD - Physical Exam Exam: See Below Text/Narrative:: pt is pale appearing and he states that has had one loose stool per day.. he is vomiting. almost everything that he takes in. Exam Limited By: No Limitations General Appearance: Alert, Anxious Ears: Normal TMs Nose: Normal Inspection Throat/Mouth: Normal Inspection Head: Atraumatic Neck: Normal Inspection Respiratory/Chest: No Respiratory Distress Cardiovascular: Regular Rate, Rhythm GI/Abdominal Exam: Soft, Non-Tender Rectal (Males) Exam: Deferred Back Exam: Normal Inspection Extremities: Normal Inspection Neurological: Alert, Oriented, Normal Cognition Psychiatric: Anxious Course - Vital Signs Last Recorded V/S: Last Vital Signs Temp 37.6 C 12/27/17 18:07 Pulse 124 H 12/27/17 16:41 Resp 18 12/27/17 16:41 BP 135/86 12/27/17 16:41 Pulse Ox 97 12/27/17 16:41 - Orders/Labs/Meds Orders: Active Orders 24 hr Category Date Time Status Chest 2V [CR] Stat Exams 12/27/17 16:43 Taken CULTURE BLOOD [BC] Urgent Lab 12/27/17 16:50 Received CULTURE BLOOD [BC] Urgent Lab 12/27/17 17:00 Received CULTURE URINE [RM] Stat Lab 12/27/17 17:00 Received UA W/MICROSCOPIC [URIN] Urgent Lab 12/27/17 17:16 Ordered Meropenem [Merrem] 500 mg Med 12/27/17 18:14 Active Sodium Chloride 0.9% [Normal Saline] 50 ml IV ONETIME Sodium Chloride 0.9% [Normal Saline] 1,000 ml Med 12/27/17 16:45 Active IV ASDIRECTED Sodium Chloride 0.9% [Normal Saline] 1,000 ml Med 12/27/17 18:15 Active IV ASDIRECTED Blood Culture x2 Reflex Set [OM.PC] Urgent Oth 12/27/17 16:45 Ordered Medication Orders Sodium Chloride (Normal Saline) 1,000 mls @ 999 mls/hr IV ASDIRECTED ISABELLA Last Admin: 12/27/17 17:05 Dose: 999 mls/hr Sodium Chloride (Normal Saline) 1,000 mls @ 999 mls/hr IV ASDIRECTED ISABELLA Meropenem 500 mg/ Sodium (Chloride) 50 mls @ 100 mls/hr IV ONETIME ONE Stop: 12/27/17 18:43 Labs: Laboratory Tests 12/27/17 12/27/17 12/27/17 Range/Units 16:50 16:50 17:16 WBC 17.7 H (4.5-11.0) K/uL RBC 4.57 (4.30-5.90) M/uL Hgb 10.3 L (12.0-15.0) g/dL Hct 33.4 L (40.0-54.0) % MCV 73 L (80-98) fL MCH 23 L (27-31) pg MCHC 31 L (32-36) % Plt Count 261 (150-400) K/uL Neut % (Auto) 95 H (36-66) % Lymph % (Auto) 2 L (24-44) % Slope % (Auto) 3 (2-6) % Eos % (Auto) 0 L (2-4) % Baso % (Auto) 0 (0-1) % Sodium 123 L (140-148) mmol/L Potassium 4.6 (3.6-5.2) mmol/L Chloride 90 L (100-108) mmol/L Carbon Dioxide 21 (21-32) mmol/L Anion Gap 16.6 H (5.0-14.0) mmol/L BUN 47 H D (7-18) mg/dL Creatinine 3.2 H D (0.8-1.3) mg/dL Est Cr Clr Drug Dosing 30.69 mL/min Estimated GFR (MDRD) 22 L (>60) Glucose 352 H (74-106) mg/dL Lactic Acid (0.4-2.0) mmol/L Calcium 8.2 L (8.5-10.1) mg/dL Total Bilirubin 2.7 H D (0.2-1.0) mg/dL AST 51 H D (15-37) U/L ALT 28 (12-78) U/L Alkaline Phosphatase 137 H (46-116) U/L Total Protein 7.4 (6.4-8.2) g/dL Albumin 2.1 L (3.4-5.0) g/dL Globulin 5.3 H (2.3-3.5) g/dL Albumin/Globulin Ratio 0.4 L (1.2-2.2) Urine Color Brown Urine Appearance Cloudy Urine pH 5.0 (4.5-8.0) Ur Specific [place] 1.020 (1.008-1.030) Urine Protein 500 H (NEGATIVE) mg/dL Urine Glucose (UA) 100 H (NEGATIVE) mg/dL Urine Ketones Negative (NEGATIVE) mg/dL Urine Occult Blood Large (NEGATIVE) Urine Nitrite Negative (NEGAITVE) Urine Bilirubin Moderate (NEGATIVE) Urine Urobilinogen 1 (NORMAL) mg/dL Ur Leukocyte Esterase Negative (NEGATIVE) Urine RBC 20-30 H (0-5) Urine WBC 0-5 (0-5) Ur Epithelial Cells Rare Amorphous Sediment Many Urine Bacteria Moderate Urine Mucus Many Urine Other See note 12/27/17 Range/Units 17:53 WBC (4.5-11.0) K/uL RBC (4.30-5.90) M/uL Hgb (12.0-15.0) g/dL Hct (40.0-54.0) % MCV (80-98) fL MCH (27-31) pg MCHC (32-36) % Plt Count (150-400) K/uL Neut % (Auto) (36-66) % Lymph % (Auto) (24-44) % Slope % (Auto) (2-6) % Eos % (Auto) (2-4) % Baso % (Auto) (0-1) % Sodium (140-148) mmol/L Potassium (3.6-5.2) mmol/L Chloride (100-108) mmol/L Carbon Dioxide (21-32) mmol/L Anion Gap (5.0-14.0) mmol/L BUN (7-18) mg/dL Creatinine (0.8-1.3) mg/dL Est Cr Clr Drug Dosing mL/min Estimated GFR (MDRD) (>60) Glucose (74-106) mg/dL Lactic Acid 3.8 H (0.4-2.0) mmol/L Calcium (8.5-10.1) mg/dL Total Bilirubin (0.2-1.0) mg/dL AST (15-37) U/L ALT (12-78) U/L Alkaline Phosphatase (46-116) U/L Total Protein (6.4-8.2) g/dL Albumin (3.4-5.0) g/dL Globulin (2.3-3.5) g/dL Albumin/Globulin Ratio (1.2-2.2) Urine Color Urine Appearance Urine pH (4.5-8.0) Ur Specific [place] (1.008-1.030) Urine Protein (NEGATIVE) mg/dL Urine Glucose (UA) (NEGATIVE) mg/dL Urine Ketones (NEGATIVE) mg/dL Urine Occult Blood (NEGATIVE) Urine Nitrite (NEGAITVE) Urine Bilirubin (NEGATIVE) Urine Urobilinogen (NORMAL) mg/dL Ur Leukocyte Esterase (NEGATIVE) Urine RBC (0-5) Urine WBC (0-5) Ur Epithelial Cells Amorphous Sediment Urine Bacteria Urine Mucus Urine Other Meds: Medications Generic Name Dose Route Start Last Admin Trade Name Freq PRN Reason Stop Dose Admin Sodium Chloride 1,000 mls @ 999 mls/hr 12/27/17 16:45 12/27/17 17:05 Normal Saline IV 999 mls/hr ASDIRECTED ISABELLA Administration Sodium Chloride 1,000 mls @ 999 mls/hr 12/27/17 18:15 Normal Saline IV ASDIRECTED ISABELLA Meropenem 500 mg/ Sodium 50 mls @ 100 mls/hr 12/27/17 18:14 Chloride IV 12/27/17 18:43 ONETIME ONE Discontinued Medications Generic Name Dose Route Start Last Admin Trade Name Giorgio PRN Reason Stop Dose Admin Ondansetron HCl 4 mg 12/27/17 16:42 12/27/17 17:06 Zofran IVPUSH 12/27/17 16:43 4 mg ONETIME ONE Administration - Re-Assessments/Exams Free Text/Narrative Re-Assessment/Exam: 12/27/17 18:22 pt has a low na, his wbc is elevated. His chest xray does not show a infiltrate. His creatnine is elevated. 12/27/17 18:24 pt hasan elevated lactic acid. Departure - Departure Time of Disposition: 18:25 Disposition: Admitted As Inpatient 68 Condition: Fair Clinical Impression: Sepsis, Dehydration, Renal insufficiency - Discharge Information Referrals: PCP,None [Primary Care Provider] - Forms: ED Department Discharge Care Plan Goals: admit to Dr Verdin - My Orders Last 24 Hours: My Active Orders 12/27/17 16:43 Chest 2V [CR] Stat 12/27/17 16:45 Sodium Chloride 0.9% [Normal Saline] 1,000 ml IV ASDIRECTED Blood Culture x2 Reflex Set [OM.PC] Urgent 12/27/17 16:50 CULTURE BLOOD [BC] Urgent 12/27/17 17:00 CULTURE BLOOD [BC] Urgent CULTURE URINE [RM] Stat 12/27/17 17:16 UA W/MICROSCOPIC [URIN] Urgent 12/27/17 18:14 Meropenem [Merrem] 500 mg Sodium Chloride 0.9% [Normal Saline] 50 ml IV ONETIME 12/27/17 18:15 Sodium Chloride 0.9% [Normal Saline] 1,000 ml IV ASDIRECTED - Assessment/Plan Last 24 Hours: My Active Orders 12/27/17 16:43 Chest 2V [CR] Stat 12/27/17 16:45 Sodium Chloride 0.9% [Normal Saline] 1,000 ml IV ASDIRECTED Blood Culture x2 Reflex Set [OM.PC] Urgent 12/27/17 16:50 CULTURE BLOOD [BC] Urgent 12/27/17 17:00 CULTURE BLOOD [BC] Urgent CULTURE URINE [RM] Stat 12/27/17 17:16 UA W/MICROSCOPIC [URIN] Urgent 12/27/17 18:14 Meropenem [Merrem] 500 mg Sodium Chloride 0.9% [Normal Saline] 50 ml IV ONETIME 12/27/17 18:15 Sodium Chloride 0.9% [Normal Saline] 1,000 ml IV ASDIRECTED
[2017-12-27] MEDS ORDERED: Meropenem 500 MG in Sodium Chloride 0.9% 50 ML IV ONE (18:14)
[2017-12-27] MEDS ORDERED: metroNIDAZOLE/Normal Saline 500 MG in Premix Bag 1 BAG IV SCH (19:00)
--- NOTE | 2017-12-27 19:03 | PCM.HP ---
H&P History of Present Illness - General Date of Service: 12/27/17 Admit Problem/Dx: Admission Diagnosis/Problem Admission Diagnosis/Problem Sepsis Source of Information: Patient, Provider History Limitations: Reports: No Limitations - History of Present Illness Initial Comments - Free Text/Narative: Naresh presents to the emergency room today with approximately 2 weeks of nausea with vomiting as well as diarrhea. Symptoms have waxed and waned but have become more intense over the past few days. He also reports moderate intermittent achy left-sided abdominal pain. No obvious trigger for the pain which is their relatively constantly but comes and goes. He hasn't tried anything to make the pain better. He reports that he is only able to keep down water but has not been able to keep down any food. He has had loose stools ranging anywhere from 1 time per day to multiple loose to watery bowel movements per day. He has had low-grade temperature elevations and measured temperatures around 99. He has not had much of an appetite. He does not feel short of breath. Has not been checking his blood sugars as frequently as he should per his report. He has not had any pain in his right foot over the past week. No complaints of pain in the left calf in an area of ulceration. Workup in the emergency room was suggestive of sepsis with an elevated lactic acid level as well as tachycardia. He is febrile to 37.7 C. Chest x-ray not suggestive of infection and urine sample not suggestive of infection. He does have acute kidney injury with a creatinine of 3.2. Sodium is low at 123. He did receive a dose of meropenem but there is no obvious source of infection other than possibly his abdomen based on examination so far. He will be admitted to the intensive care unit for management of sepsis with presumed intra-abdominal source. - Related Data Allergies/Adverse Reactions: Allergies Allergy/AdvReac Type Severity Reaction Status Date / Time metformin Allergy Indigestion Verified 12/27/17 16:21 vancomycin Allergy Other Verified 12/27/17 16:21 Home Medications: Home Meds Warfarin [Coumadin] 12.5 mg PO DAILY 12/08/13 [History] Liraglutide [Victoza] 1.8 units SQ DAILY 03/20/17 [History] hydrALAZINE [Apresoline] 25 mg PO TID 10/06/17 [History] Bumetanide 2 mg PO BID #60 tablet 12/13/17 [Rx] Metoprolol Succinate 100 mg PO BID #60 tab.er.24h 12/13/17 [Rx] Insulin Glargine,Hum.Rec.Anlog [[place]] 22 unit SQ BEDTIME 12/27/17 [ History] Past Medical History - Past Health History Medical/Surgical History: Denies Medical/Surgical History HEENT History: Reports: Epistaxis, Hard of Hearing Cardiovascular History: Reports: Heart Murmur, High Cholesterol, Hypertension, Other (See Below) Other Cardiovascular History: 2013 aortic valve replacement Respiratory History: Reports: SOB Gastrointestinal History: Reports: Other (See Below) Other Gastrointestinal History: acid reflux Genitourinary History: Reports: Chronic Renal Insuffiency, Other (See Below) Other Genitourinary History: dialysis [facility] no longer using dialysis since. Musculoskeletal History: Reports: Other (See Below) Other Musculoskeletal History: amputations 5 toes R foot 10/08 Skin grafts 06/17 on toes. Neurological History: Reports: None Psychiatric History: Reports: ADD Endocrine/Metabolic History: Reports: Diabetes, Type II, IDDM, Obesity/BMI 30+ Hematologic History: Reports: Anemia Immunologic History: Reports: Other (See Below) Other Immunologic History: MRSA hx pacer site and chest incision Oncologic (Cancer) History: Reports: None Dermatologic History: Reports: Other (See Below) Other Dermatologic History: right foot ulcer - Infectious Disease History Infectious Disease History: Reports: MRSA - Past Surgical History HEENT Surgical History: Reports: Cataract Surgery Cardiovascular Surgical History: Reports: Pacer, Valve Replacement Musculoskeletal Surgical History: Reports: Other (See Below) Other Musculoskeletal Surgeries/Procedures:: amb partial right foot Social & Family History - Family History Endocrine/Metabolic: Reports: Diabetes, type II - Tobacco Use Smoking Status *Q: Unknown Ever Smoked - Caffeine Use Caffeine Use: Reports: Coffee, Soda, Tea - Alcohol Use Alcohol Use History: No - Living Situation & Occupation Living situation: Reports: with Significant Other (lives with SO Heidi of five years in [place], [place].) Occupation: Employed H&P Review of Systems - Review of Systems: Review Of Systems: See Below Free Text/Narrative: A complete 12 point review of systems was obtained. Pertinent positives and negatives are noted in the history of present illness. All other systems were reviewed and were negative except as noted. Exam - Exam Exam: See Below - Vital Signs Vital Signs: Last Vital Signs Temp 37.6 C 12/27/17 18:07 Pulse 124 H 12/27/17 16:41 Resp 18 12/27/17 16:41 BP 140/89 12/27/17 18:41 Pulse Ox 97 12/27/17 16:41 Weight: 136.078 kg - Exam Quality Assessment: No: Supplemental Oxygen General: Alert, Oriented, Cooperative, Mild Distress HEENT: Conjunctiva Clear. No: Mucosa Moist & [place] (dry), Scleral Icterus Neck: Supple, Trachea Midline Lungs: Clear to Auscultation, Normal Respiratory Effort Cardiovascular: Regular Rhythm, Tachycardia, Systolic Murmur GI/Abdominal Exam: Normal Bowel Sounds, Soft, No Mass, Distended (mild), Tender (left side of abdomen ). No: Guarding Back Exam: Normal Inspection, Full Range of Motion Extremities: Pedal Edema (to mid kenny bilaterally ), Other (healing surgical wound right foot with no warmth, erythema or tenderness. Left calf with 2 cm by 2 cm scabbed ulceration, no erythema or warmth ). No: Increased Warmth Peripheral Pulses: 1+: Dorsalis Pedis (L), Dorsalis Pedis (R) Skin: Warm, Dry Neuro Extensive - Mental Status: Alert, Oriented x3, Nl Response to Commands Neuro Extensive - Motor, Sensory, Reflexes: CN II-XII Intact. No: Dysarthria, Abnormal Motor, Tremor Psychiatric: Alert, Normal Affect - Patient Data Lab Results Last 24 hrs: Laboratory Results - last 24 hr 12/27/17 12/27/17 12/27/17 Range/Units 16:50 16:50 17:16 WBC 17.7 H (4.5-11.0) K/uL RBC 4.57 (4.30-5.90) M/uL Hgb 10.3 L (12.0-15.0) g/dL Hct 33.4 L (40.0-54.0) % MCV 73 L (80-98) fL MCH 23 L (27-31) pg MCHC 31 L (32-36) % Plt Count 261 (150-400) K/uL Neut % (Auto) 95 H (36-66) % Lymph % (Auto) 2 L (24-44) % Borden % (Auto) 3 (2-6) % Eos % (Auto) 0 L (2-4) % Baso % (Auto) 0 (0-1) % Sodium 123 L (140-148) mmol/L Potassium 4.6 (3.6-5.2) mmol/L Chloride 90 L (100-108) mmol/L Carbon Dioxide 21 (21-32) mmol/L Anion Gap 16.6 H (5.0-14.0) mmol/L BUN 47 H D (7-18) mg/dL Creatinine 3.2 H D (0.8-1.3) mg/dL Est Cr Clr Drug Dosing 30.69 mL/min Estimated GFR (MDRD) 22 L (>60) Glucose 352 H (74-106) mg/dL Lactic Acid (0.4-2.0) mmol/L Calcium 8.2 L (8.5-10.1) mg/dL Total Bilirubin 2.7 H D (0.2-1.0) mg/dL AST 51 H D (15-37) U/L ALT 28 (12-78) U/L Alkaline Phosphatase 137 H (46-116) U/L C-Reactive Protein (0.0-0.3) mg/dL Total Protein 7.4 (6.4-8.2) g/dL Albumin 2.1 L (3.4-5.0) g/dL Globulin 5.3 H (2.3-3.5) g/dL Albumin/Globulin Ratio 0.4 L (1.2-2.2) Urine Color Brown Urine Appearance Cloudy Urine pH 5.0 (4.5-8.0) Ur Specific [place] 1.020 (1.008-1.030) Urine Protein 500 H (NEGATIVE) mg/dL Urine Glucose (UA) 100 H (NEGATIVE) mg/dL Urine Ketones Negative (NEGATIVE) mg/dL Urine Occult Blood Large (NEGATIVE) Urine Nitrite Negative (NEGAITVE) Urine Bilirubin Moderate (NEGATIVE) Urine Urobilinogen 1 (NORMAL) mg/dL Ur Leukocyte Esterase Negative (NEGATIVE) Urine RBC 20-30 H (0-5) Urine WBC 0-5 (0-5) Ur Epithelial Cells Rare Amorphous Sediment Many Urine Bacteria Moderate Urine Mucus Many Urine Other See note 12/27/17 12/27/17 Range/Units 17:53 18:30 WBC (4.5-11.0) K/uL RBC (4.30-5.90) M/uL Hgb (12.0-15.0) g/dL Hct (40.0-54.0) % MCV (80-98) fL MCH (27-31) pg MCHC (32-36) % Plt Count (150-400) K/uL Neut % (Auto) (36-66) % Lymph % (Auto) (24-44) % Borden % (Auto) (2-6) % Eos % (Auto) (2-4) % Baso % (Auto) (0-1) % Sodium (140-148) mmol/L Potassium (3.6-5.2) mmol/L Chloride (100-108) mmol/L Carbon Dioxide (21-32) mmol/L Anion Gap (5.0-14.0) mmol/L BUN (7-18) mg/dL Creatinine (0.8-1.3) mg/dL Est Cr Clr Drug Dosing mL/min Estimated GFR (MDRD) (>60) Glucose (74-106) mg/dL Lactic Acid 3.8 H (0.4-2.0) mmol/L Calcium (8.5-10.1) mg/dL Total Bilirubin (0.2-1.0) mg/dL AST (15-37) U/L ALT (12-78) U/L Alkaline Phosphatase (46-116) U/L C-Reactive Protein 24.06 H (0.0-0.3) mg/dL Total Protein (6.4-8.2) g/dL Albumin (3.4-5.0) g/dL Globulin (2.3-3.5) g/dL Albumin/Globulin Ratio (1.2-2.2) Urine Color Urine Appearance Urine pH (4.5-8.0) Ur Specific [place] (1.008-1.030) Urine Protein (NEGATIVE) mg/dL Urine Glucose (UA) (NEGATIVE) mg/dL Urine Ketones (NEGATIVE) mg/dL Urine Occult Blood (NEGATIVE) Urine Nitrite (NEGAITVE) Urine Bilirubin (NEGATIVE) Urine Urobilinogen (NORMAL) mg/dL Ur Leukocyte Esterase (NEGATIVE) Urine RBC (0-5) Urine WBC (0-5) Ur Epithelial Cells Amorphous Sediment Urine Bacteria Urine Mucus Urine Other Result Diagrams: 12/27/17 16:50 12/27/17 16:50 Imaging Impressions Last 24 hrs: CXR - images personally reviewed - lungs are clear with no mass or infiltrate or effusion. Heart size is enlarged. *Q Meaningful Use (ADM) - VTE Risk Assess *Q Each Risk Factor Represents 1 Point: Swollen Legs, Current, Obesity ( BMI > 25 kg/m2), Congestive heart failure (CHF), Sepsis Total Score 1 Point Risk Factors: 4 Each Risk Factor Represents 2 Points: None Total Score 2 Point Risk Factors: 0 Each Risk Factor Represents 3 Points: None Total Score 3 Point Risk Factors: 0 Each Risk Factor Represents 5 Points: None Total Score 5 Point Risk Factors: 0 Venous Thromboembolism Risk Factor Score *Q: 4 - Problem List (1) Abdominal pain SNOMED Code(s): 10439023 ICD Code: R10.9 - UNSPECIFIED ABDOMINAL PAIN Status: Acute Current Visit : Yes Qualifiers: Abdominal location: left lower quadrant Qualified Code(s): R10.32 - Left lower quadrant pain (2) Diarrhea SNOMED Code(s): 64455654 ICD Code: R19.7 - DIARRHEA, UNSPECIFIED Status: Acute Current Visit: Yes Qualifiers: Diarrhea type: presumed infectious Qualified Code(s): R19.7 - Diarrhea, unspecified (3) Nausea and vomiting SNOMED Code(s): 71803013 ICD Code: R11.2 - NAUSEA WITH VOMITING, UNSPECIFIED Status: Acute Current Visit: Yes Qualifiers: Vomiting type: unspecified Vomiting Intractability: non-intractable Qualified Code(s): R11.2 - Nausea with vomiting, unspecified (4) [id number] kidney injury SNOMED Code(s): 687941296 ICD Code: N17.9 - ACUTE KIDNEY FAILURE, UNSPECIFIED; N18.9 - CHRONIC KIDNEY DISEASE, UNSPECIFIED Status: Acute Current Visit: Yes Qualifiers: Acute renal failure type: with acute tubular necrosis Chronic kidney disease stage: stage 3 (moderate) Qualified Code(s): N17.0 - Acute kidney failure with tubular necrosis; N18.3 - Chronic kidney disease, stage 3 (moderate ) (5) Sepsis SNOMED Code(s): 55981591 ICD Code: A41.9 - SEPSIS, UNSPECIFIED ORGANISM Status: Acute Current Visit: Yes Qualifiers: Sepsis type: sepsis due to unspecified organism Qualified Code(s): A41.9 - Sepsis, unspecified organism (6) Chronic systolic congestive heart failure SNOMED Code(s): 964673471, 916358450 ICD Code: I50.22 - CHRONIC SYSTOLIC (CONGESTIVE) HEART FAILURE Status: Chronic Current Visit: Yes (7) History of mechanical aortic valve replacement SNOMED Code(s): 092882128, 37298229, 048731606, 479217608, 924536830, 333519950 ICD Code: Z95.2 - PRESENCE OF PROSTHETIC HEART VALVE Status: Chronic Current Visit: No (8) Diabetes mellitus type 2 with complications, uncontrolled SNOMED Code(s): 467665862, 122628840 ICD Code: E11.8 - TYPE 2 DIABETES MELLITUS WITH UNSPECIFIED COMPLICATIONS; E11.65 - TYPE 2 DIABETES MELLITUS WITH HYPERGLYCEMIA Status: Chronic Priority: High Current Visit: No Qualifiers: Diabetes mellitus joint terminal attack controller insulin use: with detention use Qualified Code( s): E11.8 - Type 2 diabetes mellitus with unspecified complications; E11.65 - Type 2 diabetes mellitus with hyperglycemia; Z79.4 - [facility] (current) use of insulin Problem List Initiated/Reviewed/Updated: Yes Orders Last 24hrs: Active Orders 24 hr Category Date Time Status Patient Status Manage Transfer [TRANSFER] Routine ADT 12/27/17 18:50 Ordered Abdomen Pelvis wo Cont [CT] Routine Exams 12/27/17 18:45 Ordered Chest 2V [CR] Stat Exams 12/27/17 16:43 Taken CLOSTRIDIUM DIFFICILE BY PCR [RM] Routine Lab 12/27/17 18:45 Ordered CULTURE BLOOD [BC] Urgent Lab 12/27/17 16:50 Received CULTURE BLOOD [BC] Urgent Lab 12/27/17 17:00 Received CULTURE URINE [RM] Stat Lab 12/27/17 17:00 Received INR,PT,PROTHROMBIN TIME [COAG] Stat Lab 12/27/17 18:49 Ordered UA W/MICROSCOPIC [URIN] Urgent Lab 12/27/17 17:16 Ordered Sodium Chloride 0.9% [Normal Saline] 1,000 ml Med 12/27/17 16:45 Active IV ASDIRECTED Sodium Chloride 0.9% [Normal Saline] 1,000 ml Med 12/27/17 18:15 Active IV ASDIRECTED Blood Culture x2 Reflex Set [OM.PC] Urgent Oth 12/27/17 16:45 Ordered Resuscitation Status Routine Resus Stat 12/27/17 18:51 Ordered Medication Orders Sodium Chloride (Normal Saline) 1,000 mls @ 999 mls/hr IV ASDIRECTED [facility] Last Admin: 12/27/17 17:05 Dose: 999 mls/hr Sodium Chloride (Normal Saline) 1,000 mls @ 999 mls/hr IV ASDIRECTED [facility] Assessment/Plan Comment:: ASSESSMENT AND PLAN - Sepsis with left-sided abdominal pain, nausea and vomiting - concerning for infectious etiology with Clostridium difficile infection high on the list. CT scan of the abdomen and pelvis is pending as is the Clostridium difficile testing. Evidence for sepsis including elevated lactic acid, tachycardia and fever. He has received 2 L of IV fluid. CRP is now up to 24 and was 8 one week ago. -Continue IV fluids carefully with history of heart failure -Follow-up CT scan of the abdomen and pelvis -Follow-up Clostridium difficile testing -Repeat lactic acid level -Pain control -Symptom management Acute kidney injury - significant elevation of creatinine from baseline. Suspect acute tubular necrosis based on urinalysis and clinical dehydration. -IV fluids as above -Repeat labs in the morning Insulin-dependent diabetes mellitus with hyperglycemia - sugar control likely suboptimal from baseline with acute infection. Baseline control has not been good either. -5 units of short acting insulin now -High-dose sliding scale insulin -Hold long-acting insulin until appetite improves Chronic systolic congestive heart failure - Appears well compensated at this time with no significant evidence for volume overload. -Continue beta terri History of aortic valve replacement - chronically anticoagulated. INR slightly subtherapeutic. -Warfarin 10 mg 1 today -INR in the morning Maintenance issues - - DVT prophylaxis - warfarin - GI prophylaxis - IV PPI - Nutrition - clear liquids - Oakley catheter - not indicated CODE STATUS - full code Admission justification - This patient will be admitted for inpatient services and is medically appropriate meeting medical necessity for inpatient admission as outlined in my documentation. I reasonably expect the patient will require inpatient services that span a period time over 2 midnights. I reasonably expect this patient to be discharged or transferred within 96 hours [facility]. Disposition - anticipate discharge home after the hospital stay Primary care physician - patient currently does not have a primary care provider Wilfredo Verdin M.D.
[2017-12-27] MEDS ORDERED: Ondansetron 4 MG Tab.DIS PO PRN (19:04)
[2017-12-27] MEDS ORDERED: Acetaminophen 325 MG Tab PO PRN (19:04)
[2017-12-27] MEDS ORDERED: HYDROmorphone 0.5 MG/0.5 ML Syringe IVPUSH PRN (19:04)
[2017-12-27] MEDS ORDERED: Warfarin 5 MG Tab PO ONE (19:35)
[2017-12-27] MEDS: Pantoprazole 40 MG Vial IV SCH (19:59)
[2017-12-27] MEDS: Insulin Aspart 100 Units/ML 3 ML Pen SUBCUT SCH (20:18)
[2017-12-27] MEDS ORDERED: Metoprolol Succinate 50 MG Tab.ER PO SCH (21:00)
[2017-12-27] MEDS: LORazepam 2 MG/ML SDV IVPUSH PRN (22:15)
[2017-12-27] MEDS ORDERED: Lactated Ringers 1,000 ML IV ONE (22:28)
[2017-12-27] MEDS ORDERED: Linezolid 600 MG in Premix Bag 1 BAG IV ONE (22:29)
[2017-12-28] MEDS: oxyCODONE 5 MG Tab PO PRN (00:12)
[2017-12-28] MEDS: LORazepam 2 MG/ML SDV IVPUSH PRN (02:04)
[2017-12-28] MEDS ORDERED: Lactated Ringers 1,000 ML IV SCH (02:45)
[2017-12-28] MEDS: Sodium Chloride 0.9% 1,000 ML IV SCH ×3 (04:23→23:18)
[2017-12-28] MEDS: Insulin Aspart 100 Units/ML 3 ML Pen SUBCUT SCH ×4 (07:36→20:51)
[2017-12-28] MEDS ORDERED: Lactated Ringers 500 ML IV SCH (08:45)
--- NOTE | 2017-12-28 08:48 | PCM.PN ---
- General Info Date of Service: 12/28/17 Functional Status: Reports: Pain Controlled - Review of Systems General: Denies: Fever Gastrointestinal: Denies: Diarrhea, Nausea Systems Review Comment:: Overnight the patient had decreasing blood pressures and did require fluid boluses. Blood pressure was stable on the low side of normal this morning. He has not had further fevers after linezolid was started late last night. He has 2 out of 4 blood culture bottles positive for gram-positive cocci. He reports that he feels a little better this morning. Nausea, vomiting and abdominal pain have improved. Heart rate has improved. - Patient Data Vitals - Most Recent: Last Vital Signs Temp 36.2 C 12/28/17 08:00 Pulse 87 12/28/17 08:00 Resp 12 12/28/17 08:00 BP 89/50 L 12/28/17 08:00 Pulse Ox 100 12/28/17 08:00 Weight - Most Recent: 136.078 kg I&O - Last 24 Hours: Intake & Output 12/27/17 12/28/17 12/28/17 22:59 06:59 14:59 Intake Total 4530 Balance 4530 Lab Results Last 24 Hours: Laboratory Results - last 24 hr 12/27/17 12/27/17 12/27/17 Range/Units 16:50 16:50 17:16 WBC 17.7 H (4.5-11.0) K/uL RBC 4.57 (4.30-5.90) M/uL Hgb 10.3 L (12.0-15.0) g/dL Hct 33.4 L (40.0-54.0) % MCV 73 L (80-98) fL MCH 23 L (27-31) pg MCHC 31 L (32-36) % Plt Count 261 (150-400) K/uL Neut % (Auto) 95 H (36-66) % Lymph % (Auto) 2 L (24-44) % [place] % (Auto) 3 (2-6) % Eos % (Auto) 0 L (2-4) % Baso % (Auto) 0 (0-1) % PT (9.5-12.0) sec INR (0.80-1.20) Sodium 123 L (140-148) mmol/L Potassium 4.6 (3.6-5.2) mmol/L Chloride 90 L (100-108) mmol/L Carbon Dioxide 21 (21-32) mmol/L Anion Gap 16.6 H (5.0-14.0) mmol/L BUN 47 H D (7-18) mg/dL Creatinine 3.2 H D (0.8-1.3) mg/dL Est Cr Clr Drug Dosing 30.69 mL/min Estimated GFR (MDRD) 22 L (>60) Glucose 352 H (74-106) mg/dL Lactic Acid (0.4-2.0) mmol/L Calcium 8.2 L (8.5-10.1) mg/dL Total Bilirubin 2.7 H D (0.2-1.0) mg/dL AST 51 H D (15-37) U/L ALT 28 (12-78) U/L Alkaline Phosphatase 137 H (46-116) U/L C-Reactive Protein (0.0-0.3) mg/dL Total Protein 7.4 (6.4-8.2) g/dL Albumin 2.1 L (3.4-5.0) g/dL Globulin 5.3 H (2.3-3.5) g/dL Albumin/Globulin Ratio 0.4 L (1.2-2.2) Urine Color Brown Urine Appearance Cloudy Urine pH 5.0 (4.5-8.0) Ur Specific [place] 1.020 (1.008-1.030) Urine Protein 500 H (NEGATIVE) mg/dL Urine Glucose (UA) 100 H (NEGATIVE) mg/dL Urine Ketones Negative (NEGATIVE) mg/dL Urine Occult Blood Large (NEGATIVE) Urine Nitrite Negative (NEGAITVE) Urine Bilirubin Moderate (NEGATIVE) Urine Urobilinogen 1 (NORMAL) mg/dL Ur Leukocyte Esterase Negative (NEGATIVE) Urine RBC 20-30 H (0-5) Urine WBC 0-5 (0-5) Ur Epithelial Cells Rare Amorphous Sediment Many Urine Bacteria Moderate Urine Mucus Many Urine Other See note 12/27/17 12/27/17 12/27/17 Range/Units 17:53 18:30 18:49 WBC (4.5-11.0) K/uL RBC (4.30-5.90) M/uL Hgb (12.0-15.0) g/dL Hct (40.0-54.0) % MCV (80-98) fL MCH (27-31) pg MCHC (32-36) % Plt Count (150-400) K/uL Neut % (Auto) (36-66) % Lymph % (Auto) (24-44) % [place] % (Auto) (2-6) % Eos % (Auto) (2-4) % Baso % (Auto) (0-1) % PT 16.4 H (9.5-12.0) sec INR 1.51 H (0.80-1.20) Sodium (140-148) mmol/L Potassium (3.6-5.2) mmol/L Chloride (100-108) mmol/L Carbon Dioxide (21-32) mmol/L Anion Gap (5.0-14.0) mmol/L BUN (7-18) mg/dL Creatinine (0.8-1.3) mg/dL Est Cr Clr Drug Dosing mL/min Estimated GFR (MDRD) (>60) Glucose (74-106) mg/dL Lactic Acid 3.8 H (0.4-2.0) mmol/L Calcium (8.5-10.1) mg/dL Total Bilirubin (0.2-1.0) mg/dL AST (15-37) U/L ALT (12-78) U/L Alkaline Phosphatase (46-116) U/L C-Reactive Protein 24.06 H (0.0-0.3) mg/dL Total Protein (6.4-8.2) g/dL Albumin (3.4-5.0) g/dL Globulin (2.3-3.5) g/dL Albumin/Globulin Ratio (1.2-2.2) Urine Color Urine Appearance Urine pH (4.5-8.0) Ur Specific [place] (1.008-1.030) Urine Protein (NEGATIVE) mg/dL Urine Glucose (UA) (NEGATIVE) mg/dL Urine Ketones (NEGATIVE) mg/dL Urine Occult Blood (NEGATIVE) Urine Nitrite (NEGAITVE) Urine Bilirubin (NEGATIVE) Urine Urobilinogen (NORMAL) mg/dL Ur Leukocyte Esterase (NEGATIVE) Urine RBC (0-5) Urine WBC (0-5) Ur Epithelial Cells Amorphous Sediment Urine Bacteria Urine Mucus Urine Other 12/27/17 12/28/17 12/28/17 Range/Units 21:25 05:48 05:48 WBC 16.0 H (4.5-11.0) K/uL RBC 4.24 L (4.30-5.90) M/uL Hgb 9.5 L (12.0-15.0) g/dL Hct 31.2 L (40.0-54.0) % MCV 74 L (80-98) fL MCH 22 L (27-31) pg MCHC 30 L (32-36) % Plt Count 198 (150-400) K/uL Neut % (Auto) (36-66) % Lymph % (Auto) (24-44) % [place] % (Auto) (2-6) % Eos % (Auto) (2-4) % Baso % (Auto) (0-1) % PT 18.9 H (9.5-12.0) sec INR 1.73 H (0.80-1.20) Sodium (140-148) mmol/L Potassium (3.6-5.2) mmol/L Chloride (100-108) mmol/L Carbon Dioxide (21-32) mmol/L Anion Gap (5.0-14.0) mmol/L BUN (7-18) mg/dL Creatinine (0.8-1.3) mg/dL Est Cr Clr Drug Dosing mL/min Estimated GFR (MDRD) (>60) Glucose (74-106) mg/dL Lactic Acid 4.4 H (0.4-2.0) mmol/L Calcium (8.5-10.1) mg/dL Total Bilirubin (0.2-1.0) mg/dL AST (15-37) U/L ALT (12-78) U/L Alkaline Phosphatase (46-116) U/L C-Reactive Protein (0.0-0.3) mg/dL Total Protein (6.4-8.2) g/dL Albumin (3.4-5.0) g/dL Globulin (2.3-3.5) g/dL Albumin/Globulin Ratio (1.2-2.2) Urine Color Urine Appearance Urine pH (4.5-8.0) Ur Specific [place] (1.008-1.030) Urine Protein (NEGATIVE) mg/dL Urine Glucose (UA) (NEGATIVE) mg/dL Urine Ketones (NEGATIVE) mg/dL Urine Occult Blood (NEGATIVE) Urine Nitrite (NEGAITVE) Urine Bilirubin (NEGATIVE) Urine Urobilinogen (NORMAL) mg/dL Ur Leukocyte Esterase (NEGATIVE) Urine RBC (0-5) Urine WBC (0-5) Ur Epithelial Cells Amorphous Sediment Urine Bacteria Urine Mucus Urine Other 12/28/17 Range/Units 05:48 WBC (4.5-11.0) K/uL RBC (4.30-5.90) M/uL Hgb (12.0-15.0) g/dL Hct (40.0-54.0) % MCV (80-98) fL MCH (27-31) pg MCHC (32-36) % Plt Count (150-400) K/uL Neut % (Auto) (36-66) % Lymph % (Auto) (24-44) % [place] % (Auto) (2-6) % Eos % (Auto) (2-4) % Baso % (Auto) (0-1) % PT (9.5-12.0) sec INR (0.80-1.20) Sodium 126 L (140-148) mmol/L Potassium 4.7 (3.6-5.2) mmol/L Chloride 94 L (100-108) mmol/L Carbon Dioxide 20 L (21-32) mmol/L Anion Gap 16.7 H (5.0-14.0) mmol/L BUN 49 H (7-18) mg/dL Creatinine 3.6 H* (0.8-1.3) mg/dL Est Cr Clr Drug Dosing 27.18 mL/min Estimated GFR (MDRD) 19 L (>60) Glucose 140 H (74-106) mg/dL Lactic Acid (0.4-2.0) mmol/L Calcium 7.2 L (8.5-10.1) mg/dL Total Bilirubin (0.2-1.0) mg/dL AST (15-37) U/L ALT (12-78) U/L Alkaline Phosphatase (46-116) U/L C-Reactive Protein (0.0-0.3) mg/dL Total Protein (6.4-8.2) g/dL Albumin (3.4-5.0) g/dL Globulin (2.3-3.5) g/dL Albumin/Globulin Ratio (1.2-2.2) Urine Color Urine Appearance Urine pH (4.5-8.0) Ur Specific [place] (1.008-1.030) Urine Protein (NEGATIVE) mg/dL Urine Glucose (UA) (NEGATIVE) mg/dL Urine Ketones (NEGATIVE) mg/dL Urine Occult Blood (NEGATIVE) Urine Nitrite (NEGAITVE) Urine Bilirubin (NEGATIVE) Urine Urobilinogen (NORMAL) mg/dL Ur Leukocyte Esterase (NEGATIVE) Urine RBC (0-5) Urine WBC (0-5) Ur Epithelial Cells Amorphous Sediment Urine Bacteria Urine Mucus Urine Other [place] Results Last 24 Hours: Microbiology 12/27/17 16:50 Aerobic Blood Culture - Preliminary Blood - Venous - Iv Start 12/27/17 17:00 Aerobic Blood Culture - Preliminary Blood - Arm, Right 12/27/17 19:23 Clostridium difficile (PCR) - Final Stool / Feces - Stool, Liquid NEGATIVE CDIFF TOXIN Med Orders - Current: Current Medications Acetaminophen (Tylenol) 650 mg PO Q4H PRN PRN Reason: Pain (Mild 1-3)/fever Last Admin: 12/27/17 20:02 Dose: 650 mg Hydrocortisone Sodium Succinate (Solu-Cortef) 50 mg IVPUSH Q8H ISABELLA Hydromorphone HCl (Dilaudid) 0.5 mg IVPUSH Q2H PRN PRN Reason: Pain (severe 7-10) Sodium Chloride (Normal Saline) 1,000 mls @ 125 mls/hr IV ASDIRECTED [facility] Last Admin: 12/28/17 04:23 Dose: 125 mls/hr Lactated Ringer's (Ringers, Lactated) 1,000 mls @ 500 mls/hr IV ASDIRECTED [facility] Last Admin: 12/28/17 03:20 Dose: 500 mls/hr Lactated Ringer's (Ringers, Lactated) 500 mls @ 500 mls/hr IV .BOLUS [facility] Linezolid 600 mg/ Premix 300 mls @ 300 mls/hr IV Q12H ISABELLA Meropenem 1 gm/ Sodium (Chloride) 100 mls @ 200 mls/hr IV Q12H [facility] Insulin Aspart (Novolog) 0 unit SUBCUT QIDACANDBED [facility]; Protocol Last Admin: 12/28/17 07:36 Dose: Not Given Insulin Aspart (Novolog) 5 unit SUBCUT ONETIME ONE Stop: 12/28/17 19:01 Lorazepam (Ativan) 0.5 - 1 mg IVPUSH Q4H PRN PRN Reason: Nausea/Vomiting Last Admin: 12/28/17 02:04 Dose: 1 mg Ondansetron HCl (Zofran Odt) 4 mg PO Q6H PRN PRN Reason: Nausea able to take PO Oxycodone HCl (Oxycodone) 5 mg PO Q4H PRN PRN Reason: Pain (moderate 4-6) Last Admin: 12/28/17 00:12 Dose: 5 mg Pantoprazole Sodium (Protonix Iv) 40 mg IV DAILY@1700 ISABELLA Last Admin: 12/27/17 19:59 Dose: 40 mg Warfarin Sodium (Coumadin) 10 mg PO ONETIME ONE Stop: 12/28/17 13:01 Discontinued Medications Sodium Chloride (Normal Saline) 1,000 mls @ 999 mls/hr IV ASDIRECTED [facility] Last Admin: 12/27/17 17:05 Dose: 999 mls/hr Sodium Chloride (Normal Saline) 1,000 mls @ 999 mls/hr IV ASDIRECTED [facility] Meropenem 500 mg/ Sodium (Chloride) 50 mls @ 100 mls/hr IV ONETIME ONE Stop: 12/27/17 18:43 Last Admin: 12/27/17 18:21 Dose: 100 mls/hr Metronidazole 500 mg/ Premix 100 mls @ 100 mls/hr IV Q8H [facility] Lactated Ringer's (Ringers, Lactated) 1,000 mls @ 500 mls/hr IV BOLUS ONE Stop: 12/28/17 00:27 Last Admin: 12/27/17 22:43 Dose: 500 mls/hr Linezolid 600 mg/ Premix 300 mls @ 300 mls/hr IV ONETIME ONE Stop: 12/27/17 23:28 Last Admin: 12/27/17 22:43 Dose: 300 mls/hr Metoprolol Succinate (Toprol Xl) 100 mg PO BID [facility] Last Admin: 12/27/17 20:02 Dose: 100 mg Ondansetron HCl (Zofran) 4 mg IVPUSH ONETIME ONE Stop: 12/27/17 16:43 Last Admin: 12/27/17 17:06 Dose: 4 mg Warfarin Sodium (Coumadin) 10 mg PO ONETIME ONE Stop: 12/27/17 19:36 Last Admin: 12/27/17 20:10 Dose: 10 mg - Exam Quality Assessment: No: Supplemental Oxygen General: Alert, Oriented, Cooperative, No Acute Distress, Sedated HEENT: Pupils Equal Neck: Supple Lungs: Clear to Auscultation, Normal Respiratory Effort Cardiovascular: Regular Rate, Regular Rhythm, Murmurs GI/Abdominal Exam: Soft, No Distention Extremities: Pedal Edema. No: Increased Warmth Skin: Warm, Dry Wound/Incisions: Healing Well (left posterior calf), Drainage (right foot wound) Psy/Mental Status: Alert, Normal Affect - Problem List & Annotations (1) Abdominal pain SNOMED Code(s): 18455259 Code(s): R10.9 - UNSPECIFIED ABDOMINAL PAIN Status: Acute Current Visit: Yes Qualifiers: Abdominal location: left lower quadrant Qualified Code(s): R10.32 - Left lower quadrant pain (2) Diarrhea SNOMED Code(s): 90283669 Code(s): R19.7 - DIARRHEA, UNSPECIFIED Status: Acute Current Visit: Yes Qualifiers: Diarrhea type: presumed infectious Qualified Code(s): R19.7 - Diarrhea, unspecified (3) Nausea and vomiting SNOMED Code(s): 42005433 Code(s): R11.2 - NAUSEA WITH VOMITING, UNSPECIFIED Status: Acute Current Visit: Yes Qualifiers: Vomiting type: unspecified Vomiting Intractability: non-intractable Qualified Code(s): R11.2 - Nausea with vomiting, unspecified (4) [id number] kidney injury SNOMED Code(s): 401809116 Code(s): N17.9 - ACUTE KIDNEY FAILURE, UNSPECIFIED; N18.9 - CHRONIC KIDNEY DISEASE, UNSPECIFIED Status: Acute Current Visit: Yes Qualifiers: Acute renal failure type: with acute tubular necrosis Chronic kidney disease stage: stage 3 (moderate) Qualified Code(s): N17.0 - Acute kidney failure with tubular necrosis; N18.3 - Chronic kidney disease, stage 3 (moderate ) (5) Sepsis SNOMED Code(s): 04829568 Code(s): A41.9 - SEPSIS, UNSPECIFIED ORGANISM Status: Acute Current Visit : Yes Qualifiers: Sepsis type: sepsis due to unspecified organism Qualified Code(s): A41.9 - Sepsis, unspecified organism (6) Chronic systolic congestive heart failure SNOMED Code(s): 580380551, 169751453 Code(s): I50.22 - CHRONIC SYSTOLIC (CONGESTIVE) HEART FAILURE Status: Chronic Current Visit: Yes (7) History of mechanical aortic valve replacement SNOMED Code(s): 753487016, 46912131, 532893713, 538862497, 334704787, 849217018 Code(s): Z95.2 - PRESENCE OF PROSTHETIC HEART VALVE Status: Chronic Current Visit: No (8) Diabetes mellitus type 2 with complications, uncontrolled SNOMED Code(s): 832580558, 107401584 Code(s): E11.8 - TYPE 2 DIABETES MELLITUS WITH UNSPECIFIED COMPLICATIONS; E11.65 - TYPE 2 DIABETES MELLITUS WITH HYPERGLYCEMIA Status: Chronic Priority: High Current Visit: No Qualifiers: Diabetes mellitus local company intermodal truck driver insulin use: with local company intermodal truck driver use Qualified Code( s): E11.8 - Type 2 diabetes mellitus with unspecified complications; E11.65 - Type 2 diabetes mellitus with hyperglycemia; Z79.4 - assistant terminal manager (current) use of insulin - Problem List Review Problem List Initiated/Reviewed/Updated: Yes - My Orders Last 24 Hours: My Active Orders 12/27/17 18:45 Abdomen Pelvis wo Cont [CT] Routine 12/27/17 18:51 Resuscitation Status Routine 12/27/17 19:04 Patient Status [ADT] Routine Blood Glucose Check, Bedside [RC] QIDACANDBED Cardiac Monitoring [RC] CONTINUOUS Communication Order [RC] PRN Communication Order [RC] PRN Diabetes Education [RC] Click to Edit Intake and Output [RC] QSHIFT Notify Provider Vital Signs [RC] ASDIRECTED Notify Provider [RC] PRN Oxygen Therapy [RC] PRN Pulse Oximetry [RC] CONTINUOUS Up With Assistance [RC] ASDIRECTED VTE/DVT Education [RC] Per Unit Routine VTE/DVT Education [RC] Per Unit Routine Vital Signs [RC] Q2HR Acetaminophen [Tylenol] 650 mg PO Q4H PRN HYDROmorphone [Dilaudid] 0.5 mg IVPUSH Q2H PRN LORazepam [Ativan] 0.5 - 1 mg IVPUSH Q4H PRN Ondansetron [Zofran ODT] 4 mg PO Q6H PRN Sodium Chloride 0.9% [Normal Saline] 1,000 ml IV ASDIRECTED oxyCODONE 5 mg PO Q4H PRN 12/27/17 19:23 CLOSTRIDIUM DIFFICILE BY PCR [RM] Routine 12/27/17 20:00 Insulin Aspart [NovoLOG] See Protocol SUBCUT QIDACANDBED Pantoprazole [ProTONIX IV] 40 mg IV DAILY@1700 12/27/17 Dinner Clear Liquid Diet [DIET] 12/28/17 02:45 Lactated Ringers [Ringers, Lactated] 1,000 ml IV ASDIRECTED 12/28/17 08:42 LACTIC ACID [CHEM] Routine 12/28/17 08:45 Hydrocortisone Sod Succinate [Solu-CORTEF] 50 mg IVPUSH Q8H Lactated Ringers [Ringers, Lactated] 500 ml IV .BOLUS 12/28/17 09:00 Linezolid [Zyvox] 600 mg Premix Bag 1 bag IV Q12H Meropenem [Merrem] 1 gm Sodium Chloride 0.9% [Normal Saline] 100 ml IV Q12H 12/28/17 13:00 Warfarin [Coumadin] 10 mg PO ONETIME ONE 12/28/17 17:00 BASIC METABOLIC PANEL,BMP [CHEM] Timed 12/28/17 19:00 Insulin Aspart [NovoLOG] 5 unit SUBCUT ONETIME ONE 12/29/17 05:00 BASIC METABOLIC PANEL,BMP [CHEM] Timed CBC W/O DIFF,HEMOGRAM [HEME] Timed (1) INR,PT,PROTHROMBIN TIME [COAG] Timed - Plan Plan:: ASSESSMENT AND PLAN - Right foot osteomyelitis with sepsis - initial concern for intra-abdominal source but CT was negative and Clostridium difficile testing was negative. 2 blood cultures are positive for gram-positive cocci and with increasing drainage from the right foot I suspect this is the focus of infection. This was confirmed with CT scan showing osteomyelitis involving the end of the fourth metatarsal. Lactic acid did rise last night but is lower this morning though not normal. -Continue IV fluids carefully with history of heart failure -Antibiotic coverage with meropenem and linezolid -Stress dose steroids -Repeat lactic acid level -Pain control -Symptom management Acute kidney injury - significant elevation of creatinine from baseline. Suspect acute tubular necrosis based on urinalysis and clinical dehydration. He has been oliguric throughout the night. No indication for dialysis yet but if things do not improve over the next 24 hours he may need acute dialysis. -IV fluids as above -Repeat labs in the morning Insulin-dependent diabetes mellitus with hyperglycemia - blood sugars much better this morning. Still not much of an appetite. -High-dose sliding scale insulin -Hold long-acting insulin until appetite improves Chronic systolic congestive heart failure - Appears well compensated at this time with no significant evidence for volume overload. -Continue beta terri History of aortic valve replacement - chronically anticoagulated. INR still slightly subtherapeutic. -Warfarin 10 mg 1 today -INR in the morning Maintenance issues - - DVT prophylaxis - warfarin - GI prophylaxis - IV PPI - Nutrition - clear liquids - Oakley catheter - not indicated Disposition - anticipate discharge home after the hospital stay. If his urine output and kidney function do not improve he may need transfer to a higher level of care. Wilfredo Verdin M.D.
--- NOTE | 2017-12-28 09:03 | CR ---
Chest 2V INDICATION: fever FINDINGS: Comparison 06/22/2017. Right-sided pacemaker in place. Cardiac valve replacement. Cardiac en largement and mild pulmonary venous hypertension. No focal infiltrate or pleural effusion.
[2017-12-28] MEDS: Linezolid 600 MG in Premix Bag 1 BAG IV SCH ×2 (09:09→20:54)
[2017-12-28] MEDS: Hydrocortisone Sodium Succinate 100 MG/2 ML SDV IVPUSH SCH ×2 (09:10→17:53)
--- NOTE | 2017-12-28 10:25 | CT ---
Foot wo Cont Rt Total DLP 180 mGycm. INDICATION: fever, drainage, pain - assess for osteomyelitis COMPARISON: CT 06/19/2016. FINDINGS: Postoperative changes distal amputation. Marked soft tissue swelling and fluid within the d istal aspect of the right foot. No discrete abscess. There is osseous destruction of the remaining ba se of the fourth metatarsal, highly concerning for acute osteomyelitis. No recent post amputation x-r ays or CT are available for comparison. Advanced degenerative change of the tibiotalar articulation w ith hypertrophic change and subchondral cystic changes. Edema throughout the soft tissues. Advanced a rterial calcifications. Exam otherwise unremarkable. IMPRESSION: 1. No evidence for discrete abscess. There is extensive soft tissue swelling about the amputation. 2. Osseous destruction of the remaining base of the fourth metatarsal, highly concerning for acute os teomyelitis. No recent post amputation x-rays or CT are available for comparison.
[2017-12-28] MEDS: Meropenem 1 GM in Sodium Chloride 0.9% 100 ML IV SCH ×2 (11:14→22:09)
[2017-12-28] MEDS ORDERED: Warfarin 5 MG Tab PO ONE (13:00)
[2017-12-28] MEDS ORDERED: Sodium Chloride 0.9% 500 ML IV ONE (14:15)
[2017-12-28] MEDS: Pantoprazole 40 MG Vial IV SCH (17:10)
[2017-12-28] MEDS ORDERED: Insulin Aspart 100 Units/ML 3 ML Pen SUBCUT ONE (19:00)
[2017-12-28] MEDS ORDERED: Dimethicone 20%/Zinc Oxide 25% 56 GM Spray Bottle TOP PRN (20:31)
[2017-12-28] MEDS ORDERED: Nicotine Polacrilex 2 MG Gum CHEW PRN (23:34)
[2017-12-29] MEDS: Hydrocortisone Sodium Succinate 100 MG/2 ML SDV IVPUSH SCH ×2 (01:35→10:23)
[2017-12-29] MEDS: oxyCODONE 5 MG Tab PO PRN (02:47)
[2017-12-29] MEDS: Sodium Chloride 0.9% 1,000 ML IV SCH (07:38)
[2017-12-29] MEDS: Insulin Aspart 100 Units/ML 3 ML Pen SUBCUT SCH (07:57)
[2017-12-29] MEDS: Linezolid 600 MG in Premix Bag 1 BAG IV SCH (09:04)
--- NOTE | 2017-12-29 09:33 | PCM.DCSUM1 ---
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 He was admitted for management of sepsis and acute kidney injury. - Discharge Data Discharge Date: 12/29/17 Discharge Disposition: DC/Tfer to [facility] 02 Condition: Fair - Discharge Diagnosis/Problem(s) (1) Abdominal pain SNOMED Code(s): 93617946 ICD Code: R10.9 - UNSPECIFIED ABDOMINAL PAIN Status: Acute Current Visit : Yes Qualifiers: Abdominal location: left lower quadrant Qualified Code(s): R10.32 - Left lower quadrant pain (2) Diarrhea SNOMED Code(s): 97871035 ICD Code: R19.7 - DIARRHEA, UNSPECIFIED Status: Acute Current Visit: Yes Qualifiers: Diarrhea type: presumed infectious Qualified Code(s): R19.7 - Diarrhea, unspecified (3) Nausea and vomiting SNOMED Code(s): 36727410 ICD Code: R11.2 - NAUSEA WITH VOMITING, UNSPECIFIED Status: Acute Current Visit: Yes Qualifiers: Vomiting type: unspecified Vomiting Intractability: non-intractable Qualified Code(s): R11.2 - Nausea with vomiting, unspecified (4) [id number] kidney injury SNOMED Code(s): 018859565 ICD Code: N17.9 - ACUTE KIDNEY FAILURE, UNSPECIFIED; N18.9 - CHRONIC KIDNEY DISEASE, UNSPECIFIED Status: Acute Current Visit: Yes Qualifiers: Acute renal failure type: with acute tubular necrosis Chronic kidney disease stage: stage 3 (moderate) Qualified Code(s): N17.0 - Acute kidney failure with tubular necrosis; N18.3 - Chronic kidney disease, stage 3 (moderate ) (5) Sepsis SNOMED Code(s): 63794941 ICD Code: A41.9 - SEPSIS, UNSPECIFIED ORGANISM Status: Acute Current Visit: Yes Qualifiers: Sepsis type: sepsis due to unspecified organism Qualified Code(s): A41.9 - Sepsis, unspecified organism (6) Chronic systolic congestive heart failure SNOMED Code(s): 275245822, 498563724 ICD Code: I50.22 - CHRONIC SYSTOLIC (CONGESTIVE) HEART FAILURE Status: Chronic Current Visit: Yes (7) History of mechanical aortic valve replacement SNOMED Code(s): 655819000, 44024619, 867981164, 012842371, 450889471, 718969243 ICD Code: Z95.2 - PRESENCE OF PROSTHETIC HEART VALVE Status: Chronic Current Visit: No (8) Diabetes mellitus type 2 with complications, uncontrolled SNOMED Code(s): 532526753, 917853886 ICD Code: E11.8 - TYPE 2 DIABETES MELLITUS WITH UNSPECIFIED COMPLICATIONS; E11.65 - TYPE 2 DIABETES MELLITUS WITH HYPERGLYCEMIA Status: Chronic Priority: High Current Visit: No Qualifiers: Diabetes mellitus correction insulin use: with correction use Qualified Code( s): E11.8 - Type 2 diabetes mellitus with unspecified complications; E11.65 - Type 2 diabetes mellitus with hyperglycemia; Z79.4 - continuous churn buttermaker (current) use of insulin (9) Osteomyelitis of foot, right, acute SNOMED Code(s): 9152512437257888 ICD Code: M86.171 - OTHER ACUTE OSTEOMYELITIS, RIGHT ANKLE AND FOOT Status : Acute Current Visit: Yes - Patient Summary/Data Labs Pending at D/C: Final results of positive blood cultures. All 4 bottles are growing a gram- positive cocci with Staph identified but does be she's not determined as of yet. Hospital Course: Naresh presented to the emergency room with approximately 2 weeks of nausea with vomiting as well as diarrhea. He also had left lower quadrant abdominal pain at the time of presentation. Workup in the emergency room was suggestive of sepsis with tachycardia, fever, elevated lactic acid level at 3.8 and acute kidney injury with a creatinine level of 3.2. He received IV fluid boluses and cultures were obtained. Initially I was suspicious of an intra-abdominal source given all of the abdominal symptoms and abdominal pain. The CT scan of the abdomen and pelvis did not reveal any acute pathology. We were able to obtain a stool sample for Clostridium difficile testing shortly after admission and this was negative as well. Initial antibiotic coverage was with meropenem for presumed intra-abdominal source. He was admitted to the intensive care unit for further management. He did have an additional fever after admission and with the knowledge that his CT of the abdomen was negative we added linezolid for gram-positive coverage with the suspicion that he may have a soft tissue or bone and joint infection. Examination of his right foot which had previously been affected by smoldering osteomyelitis was relatively unremarkable. Overnight after admission his blood pressures trended down and he received additional fluid boluses. He did not make any urine throughout the first night of hospitalization. Clinically he looked a little better by the morning after admission and he was more alert and interactive. His lactic acid level which had initially risen slightly was starting to come down. Creatinine level had risen to 3. 6 in the morning and then 24.1 later in the day. Blood pressures stabilized in the mid to upper 90s and his mean arterial pressure was greater than 65. I did initiate hydrocortisone at this point since he was still borderline hypotensive after aggressive volume resuscitation. The morning after admission his blood cultures returned with gram-positive cocci in 2 out of the 4 bottles. Examination of the right foot the morning after admission revealed brownish discharge from the chronic wound on the right foot. CT scan of this foot revealed complete distraction of the distal end of the fourth metatarsal concerning for osteomyelitis. Also noted on the CT scan was extensive soft tissue swelling in the area. No abscess was identified. Linezolid and meropenem were continued. Throughout the day he had no urine output. Vital signs remained essentially stable. Later in the day after admission the third and then fourth blood culture bottles became positive for gram-positive cocci. Overnight on the second night of hospitalization clinically he remained stable with what pressures on the low side of normal. His heart rate did improve throughout the day and into the night. He continued to be anuric. On the morning of discharge the patient has continued to be anuric after more than 40 hours of hospitalization. His creatinine is now up to 4.2 and his GFR is down to 16. He is starting to develop a metabolic acidosis and his bicarbonate level is down to 18. Fortunately we have not had any difficulty with a volume overload as of yet with his systolic heart failure and aggressive volume resuscitation. His nausea, vomiting and diarrhea have all resolved. I suspect that he will need dialysis in the near future and have recommended transfer to a higher level of care. He has previously needed dialysis and spent most of last summer receiving dialysis as an outpatient. I suspect acute tubular necrosis with prolonged dehydration as well as sepsis complicating chronic kidney disease. He has known diabetic nephropathy with long-standing and poorly controlled insulin-dependent diabetes. He will be transferred to [facility] in [place] via ambulance for direct admission and nephrology evaluation. Regarding the right foot osteomyelitis, this has been followed by our tower air traffic control specialist here in [place]. He has had a smoldering osteomyelitis in the past but has not had recent antibiotics for the foot infection. He was seen last week in the wound was thought to look good. CRP was checked during the clinic visit and was elevated at 8. At the time of admission to the hospital and was up to 24. 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 The patient was requesting to transfer to [place] via private car because of motion sickness and discomfort with the ambulance ride. I counseled him that this was an acute medical issue and that he was not safe to be traveling by car. We will make every possible accommodation to make the trip comfortable and he can receive premedication for anxiety prior to transfer. We have continued anticoagulation and his INR at the time of discharge is 2.39. - Patient Instructions Diet: Diabetic Diet Activity: As Tolerated Driving: Do Not Drive Other/Special Instructions: 1. You were in the hospital for management of right foot osteomyelitis with sepsis and systemic symptoms including nausea with vomiting as well as diarrhea. You developed acute kidney injury as a result of the severe infection and have not been making urine. I recommend transfer to [facility] in [place] for evaluation by a kidney specialist. - Discharge Plan Home Medications: Home Meds Warfarin [Coumadin] 12.5 mg PO DAILY 12/08/13 [History] Liraglutide [Victoza] 1.8 units SQ DAILY 03/20/17 [History] hydrALAZINE [Apresoline] 25 mg PO TID 10/06/17 [History] Bumetanide 2 mg PO BID #60 tablet 12/13/17 [Rx] Metoprolol Succinate 100 mg PO BID #60 tab.er.24h 12/13/17 [Rx] Insulin Glargine,Hum.Rec.Anlog [[place]] 22 unit SQ BEDTIME 12/27/17 [ History] Patient Handouts: Bone and Joint Infections, Adult, Linezolid injection Referrals: PCP,None [Primary Care Provider] - - Discharge Summary/Plan Comment DC Time >30 min.: Yes (45 - transfer to acute Hospital) - Patient Data Vitals - Most Recent: Last Vital Signs Temp 35.7 C 12/29/17 07:42 Pulse 79 12/29/17 05:59 Resp 16 12/29/17 09:00 BP 87/62 L 12/29/17 09:00 Pulse Ox 96 12/29/17 09:00 Weight - Most Recent: 136.078 kg I&O - Last 24 hours: Intake & Output 12/28/17 12/29/17 12/29/17 22:59 06:59 14:59 Intake Total 4504 1548 Output Total 0 Balance 4504 1548 Lab Results - Last 24 hrs: Laboratory Results - last 24 hr 12/28/17 12/29/17 12/29/17 Range/Units 17:00 05:25 05:25 WBC 14.4 H (4.5-11.0) K/uL RBC 4.49 (4.30-5.90) M/uL Hgb 9.9 L (12.0-15.0) g/dL Hct 32.2 L (40.0-54.0) % MCV 72 L (80-98) fL MCH 22 L (27-31) pg MCHC 31 L (32-36) % Plt Count 189 (150-400) K/uL PT 26.5 H (9.5-12.0) sec INR 2.39 H (0.80-1.20) Sodium 124 L (140-148) mmol/L Potassium 5.1 (3.6-5.2) mmol/L Chloride 93 L (100-108) mmol/L Carbon Dioxide 20 L (21-32) mmol/L Anion Gap 16.1 H (5.0-14.0) mmol/L BUN 53 H (7-18) mg/dL Creatinine 4.1 H* (0.8-1.3) mg/dL Est Cr Clr Drug Dosing 23.87 mL/min Estimated GFR (MDRD) 16 L (>60) Glucose 209 H (74-106) mg/dL Calcium 7.3 L (8.5-10.1) mg/dL 12/29/17 Range/Units 05:25 WBC (4.5-11.0) K/uL RBC (4.30-5.90) M/uL Hgb (12.0-15.0) g/dL Hct (40.0-54.0) % MCV (80-98) fL MCH (27-31) pg MCHC (32-36) % Plt Count (150-400) K/uL PT (9.5-12.0) sec INR (0.80-1.20) Sodium 123 L (140-148) mmol/L Potassium 4.7 (3.6-5.2) mmol/L Chloride 93 L (100-108) mmol/L Carbon Dioxide 18 L (21-32) mmol/L Anion Gap 16.7 H (5.0-14.0) mmol/L BUN 62 H (7-18) mg/dL Creatinine 4.2 H* (0.8-1.3) mg/dL Est Cr Clr Drug Dosing 23.30 mL/min Estimated GFR (MDRD) 16 L (>60) Glucose 233 H (74-106) mg/dL Calcium 7.1 L (8.5-10.1) mg/dL EZE Results - Last 24 hrs: Microbiology 12/27/17 16:50 Aerobic Blood Culture - Preliminary Blood - Venous - Iv Start Anaerobic Blood Culture - Preliminary 12/27/17 17:00 Aerobic Blood Culture - Preliminary Blood - Arm, Right Anaerobic Blood Culture - Preliminary 12/27/17 17:00 Urine Culture - Preliminary Urine, Bladder MIXED POSITIVE KAUSHIK DAY 1 Med Orders - Current: Current Medications Acetaminophen (Tylenol) 650 mg PO Q4H PRN PRN Reason: Pain (Mild 1-3)/fever Last Admin: 12/27/17 20:02 Dose: 650 mg Dimethicone/Zinc Oxide (Rash Relief-Zinc Oxide Valentine) 0 gm TOP ASDIRECTED PRN PRN Reason: Rash Last Admin: 12/28/17 21:26 Dose: 1 gm Hydrocortisone Sodium Succinate (Solu-Cortef) 50 mg IVPUSH Q8H REPLACED BY [facility] Last Admin: 12/29/17 01:35 Dose: 50 mg Hydromorphone HCl (Dilaudid) 0.5 mg IVPUSH Q2H PRN PRN Reason: Pain (severe 7-10) Sodium Chloride (Normal Saline) 1,000 mls @ 125 mls/hr IV ASDIRECTED ISABELLA Last Admin: 12/29/17 07:38 Dose: 125 mls/hr Linezolid 600 mg/ Premix 300 mls @ 300 mls/hr IV Q12H REPLACED BY [facility] Last Admin: 12/29/17 09:04 Dose: 300 mls/hr Meropenem 1 gm/ Sodium (Chloride) 100 mls @ 200 mls/hr IV Q12H REPLACED BY [facility] Last Admin: 12/28/17 22:09 Dose: 200 mls/hr Insulin Aspart (Novolog) 0 unit SUBCUT QIDACANDBED REPLACED BY [facility]; Protocol Last Admin: 12/29/17 07:57 Dose: 6 units Lorazepam (Ativan) 0.5 - 1 mg IVPUSH Q4H PRN PRN Reason: Nausea/Vomiting Last Admin: 12/28/17 02:04 Dose: 1 mg Nicotine Polacrilex (Nicorelief) 2 mg CHEW Q2H PRN PRN Reason: Withdrawal Symptoms Last Admin: 12/28/17 23:47 Dose: 2 mg Ondansetron HCl (Zofran Odt) 4 mg PO Q6H PRN PRN Reason: Nausea able to take PO Oxycodone HCl (Oxycodone) 5 mg PO Q4H PRN PRN Reason: Pain (moderate 4-6) Last Admin: 12/29/17 02:47 Dose: 5 mg Pantoprazole Sodium (Protonix Iv) 40 mg IV DAILY@1700 REPLACED BY [facility] Last Admin: 12/28/17 17:10 Dose: 40 mg Discontinued Medications Sodium Chloride (Normal Saline) 1,000 mls @ 999 mls/hr IV ASDIRECTED REPLACED BY [facility] Last Admin: 12/27/17 17:05 Dose: 999 mls/hr Sodium Chloride (Normal Saline) 1,000 mls @ 999 mls/hr IV ASDIRECTED REPLACED BY [facility] Meropenem 500 mg/ Sodium (Chloride) 50 mls @ 100 mls/hr IV ONETIME ONE Stop: 12/27/17 18:43 Last Admin: 12/27/17 18:21 Dose: 100 mls/hr Metronidazole 500 mg/ Premix 100 mls @ 100 mls/hr IV Q8H REPLACED BY [facility] Lactated Ringer's (Ringers, Lactated) 1,000 mls @ 500 mls/hr IV BOLUS ONE Stop: 12/28/17 00:27 Last Admin: 12/27/17 22:43 Dose: 500 mls/hr Linezolid 600 mg/ Premix 300 mls @ 300 mls/hr IV ONETIME ONE Stop: 12/27/17 23:28 Last Admin: 12/27/17 22:43 Dose: 300 mls/hr Lactated Ringer's (Ringers, Lactated) 1,000 mls @ 500 mls/hr IV ASDIRECTED REPLACED BY [facility] Last Admin: 12/28/17 03:20 Dose: 500 mls/hr Lactated Ringer's (Ringers, Lactated) 500 mls @ 500 mls/hr IV .BOLUS REPLACED BY [facility] Stop: 12/28/17 09:46 Last Admin: 12/28/17 09:11 Dose: 500 mls/hr Sodium Chloride (Normal Saline) 500 mls @ 500 mls/hr IV ASDIRECTED ONE Stop: 12/28/17 15:14 Last Admin: 12/28/17 14:15 Dose: 500 mls/hr Insulin Aspart (Novolog) 5 unit SUBCUT ONETIME ONE Stop: 12/28/17 19:01 Last Admin: 12/28/17 18:37 Dose: 5 units Metoprolol Succinate (Toprol Xl) 100 mg PO BID REPLACED BY [facility] Last Admin: 12/27/17 20:02 Dose: 100 mg Ondansetron HCl (Zofran) 4 mg IVPUSH ONETIME ONE Stop: 12/27/17 16:43 Last Admin: 12/27/17 17:06 Dose: 4 mg Warfarin Sodium (Coumadin) 10 mg PO ONETIME ONE Stop: 12/27/17 19:36 Last Admin: 12/27/17 20:10 Dose: 10 mg Warfarin Sodium (Coumadin) 10 mg PO ONETIME ONE Stop: 12/28/17 13:01 Last Admin: 12/28/17 14:02 Dose: 10 mg - Exam Quality Assessment: Denies: Supplemental Oxygen General: Reports: Alert, Oriented, Cooperative, No Acute Distress Neck: Reports: Supple Lungs: Reports: Clear to Auscultation, Normal Respiratory Effort Cardiovascular: Reports: Regular Rate, Regular Rhythm GI/Abdominal Exam: Soft, No Distention Extremities: Pedal Edema, Other (mild drainage near distal end of right 4th metatarsal from chronic wound. Left calf with 2x2 cm, no warmth or erythema) Skin: Reports: Warm, Dry Psy/Mental Status: Reports: Alert, Normal Affect
[2017-12-29] MEDS: Meropenem 1 GM in Sodium Chloride 0.9% 100 ML IV SCH (10:24)
[2017-12-29 10:49] VITALS: BP 110/60
== END 2017-12-29 11:20 | DRG 871 ==
LOC: JP.ED 15:48 → JP.ICU 18:50
PROVIDERS: ADMIT Internal Medicine; ATTEND Internal Medicine
DX: A41.9 Sepsis, unspecified organism (principal); N17.0 Acute kidney failure with tubular necrosis; I13.0 Hypertensive heart and chronic kidney disease with heart failure and stage 1 through stage 4 chronic kidney disease, or unspecified chronic kidney disease; I50.22 Chronic systolic (congestive) heart failure; M86.171 Other acute osteomyelitis, right ankle and foot; E87.2 Acidosis; R65.20 Severe sepsis without septic shock; K21.9 Gastro-esophageal reflux disease without esophagitis; E11.22 Type 2 diabetes mellitus with diabetic chronic kidney disease; E78.00 Pure hypercholesterolemia, unspecified; E11.621 Type 2 diabetes mellitus with foot ulcer; L97.519 Non-pressure chronic ulcer of other part of right foot with unspecified severity; E66.9 Obesity, unspecified; Z68.30 Body mass index [BMI] 30.0-30.9, adult; Z86.14 Personal history of Methicillin resistant Staphylococcus aureus infection; D64.9 Anemia, unspecified; N18.3 Chronic kidney disease, stage 3 (moderate); E11.65 Type 2 diabetes mellitus with hyperglycemia; E86.0 Dehydration; E11.69 Type 2 diabetes mellitus with other specified complication; Z79.4 Long term (current) use of insulin; Z95.4 Presence of other heart-valve replacement; Z79.899 Other long term (current) drug therapy; Z89.421 Acquired absence of other right toe(s)
CPT/HCPCS: 36415; 71046; 71046-26; 73700-26-RT; 73700-RT; 74176; 80048; 80053; 81001; 82962; 83605; 85025; 85027; 85610; 86140; 87040; 87077; 87086; 87186; 87493; 96361; 96365; 96375; 99285-25; A9270-GY; C9113; J1720; J2020; J2060; J2185; J2405; J7030; J7040; J7050; J7120